=== PATIENT | female | born 1975 | race Caucasian/White ===

== ENCOUNTER → 2018-03-16 17:48 | Outpatient (CLI) | payer OTHER, SELFPAY ==
[2018-03-16 18:21] LABS: Bilirubin Urine UA NEGATIVE (NEGATIVE); Color Urine UA YELLOW; Glucose Urine UA NEGATIVE (Normal); Ketones Urine UA NEGATIVE (NEGATIVE); Leukocyte Esterase Urine UA TRACE (NEGATIVE); Nitrite Urine UA POSITIVE (Negative); Occult Blood Urine UA 1+ (Negative); Protein Urine UA NEGATIVE (Negative); Specific Gravity Urine UA >=1.030 (1.000-1.035); Urobilinogen Urine UA 0.2 E.U./dL (0.2)
[2018-03-16 18:32] LABS: Appearance Urine UA Slightly Cloudy
[2018-03-16 18:34] LABS: Bacteria Urine Many (>30); Culture Indicated Urine Specimen Cultured; RBC Urine 1-5/HPF (0-5/HPF); Squamous Epithelial Cell Urine 1-5 /HPF; WBC Urine 1-5/HPF (0-5/HPF)
== END ==
PROVIDERS: Family Provider Nurse Practitioner; PCP Family Medicine; Visit Provider Family Medicine
DX: R30.0 Dysuria (principal); R35.0 Frequency of micturition; R39.15 Urgency of urination
CPT/HCPCS: 81001; 87077; 87086; 87186

== ENCOUNTER → 2018-05-13 10:07 | Outpatient (CLI) | payer OTHER, SELFPAY ==
[2018-05-13 10:37] LABS: Add Manual Diff / Slide Review NO; Basophils Percent Auto 0.4 % (0-2); Eosinophils Percent Auto 2.2 % (2-4); Hematocrit 39.5 % (36-46); Hemoglobin 13.9 g/dL (12.0-16.0); Mean Corpuscular HGB Conc 35.1 % (30-36); Mean Corpuscular Hemoglobin 30.2 PG (26-34); Mean Corpuscular Volume 86.1 fL (80-100); Monocytes Percent Auto 8.3 % (3-14); Neutrophils Absolute Auto 4300 /uL (3000-5900); Neutrophils Percent Auto 65.1 % (50-75); Platelet Count 318 X10^3/uL (150-400); Red Blood Cell Count 4.59 X10^6/uL (4.0-5.2); Red Cell Distribution Width 12.7 % (11.6-14.8); White Blood Cell Count 6.7 X10^3/uL (4.5-11.0)
[2018-05-13 10:48] LABS: Alanine Aminotransferase 37 IU/L (9-52); Albumin 4.5 g/dL (3.5-5.0); Albumin Globulin Ratio 1.3 (1.0-2.8); Alkaline Phosphatase 69 U/L (38-126); Aspartate Aminotransferase 29 IU/L (14-36); BUN Creatinine Ratio 18.3 (6-22); Bilirubin Total 0.5 mg/dL (0.2-1.3); Blood Urea Nitrogen 11 mg/dL (7-17); Calcium 9.3 mg/dL (8.4-10.2); Carbon Dioxide 29 mmol/L (22-32); Chloride 103 mmol/L (98-107); Estimated Glomerular Filt Rate > 60.0 mL/min (>60); Globulin 3.5 g/dL (1.7-4.1); Glucose 82 mg/dL (70-100); HEMOLYSIS < 15 (0-50); Potassium 4.2 mmol/L (3.4-5.1); Sodium 143 mmol/L (137-145)
[2018-05-13 11:05] LABS: Vitamin D 25 Hydroxy (D3) 38.2 ng/mL (30.0-100.0)
[2018-05-13 11:18] LABS: TSH w/ Reflex to FT4 1.02 uIU/mL (0.47-4.68)
== END ==
PROVIDERS: PCP Family Medicine; Visit Provider Family Medicine
DX: R53.83 Other fatigue (principal); E55.9 Vitamin D deficiency, unspecified
CPT/HCPCS: 36415; 80053; 82306; 84443; 85025

== ENCOUNTER 2019-03-21 22:35 | Emergency (ER) | payer OTHER, SELFPAY ==
--- NOTE | 2019-03-21 22:39 | DI.RAD.S_ITS ---
PROCEDURE: XR CHEST 1V INDICATIONS: Chest pain TECHNIQUE: One view of the chest was acquired. COMPARISON: None. FINDINGS: Surgical changes and devices: None. Lungs and pleura: Lungs are clear. No pleural effusions or pneumothorax. Mediastinum: Mediastinal contours appear normal. Heart size is normal. Bones and chest wall: No suspicious bony lesions. Overlying soft tissues appear unremarkable. IMPRESSION: No acute cardiopulmonary disease process. Dictated by: Jennie Alvarez MD, PhD on 03/22/2019 at 8:14 Approved by: Jennie Alvarez MD, PhD on 03/22/2019 at 8:15
--- NOTE | 2019-03-21 22:39 | ED_ITS ---
HPI - Chest Pain General Chief Complaint: Chest Pain Stated Complaint: sudden chest pain Time Seen by Provider: 03/21/19 22:38 Source: patient Mode of arrival: ambulatory Limitations: no limitations History of Present Illness HPI narrative: 43-year-old female here for evaluation of upper abdomen pain and back pain. Patient states that was a fairly sudden onset approximately 1 hour prior to arrival here in the emergency department. She states that she was bent over or rolling out her yoga mat when the symptoms started. Stated the symptoms have improved somewhat since then. Pain is worse with palpation and movement and taking a deep breath. Has never had any symptoms like this in the past. No vomiting. Related Data Home Medications Medication Instructions Recorded Confirmed multivitamin chewable tablet 1 tab PO DAILY 02/27/18 02/16/19 levonorgestrel 20 mcg/24 hours (5 INTRAUTERINE each 05/13/18 02/16/19 yrs) 52 mg intrauterine device Previous Rx's Medication Instructions Recorded cyclobenzaprine 10 mg tablet See Rx Instructions PO HS PRN #60 12/23/18 tab fluticasone furoate 100 100 mcg INHALATION QDAY #1 ea 12/23/18 mcg/actuation blister powder for inhalation nystatin 100,000 unit/gram topical 1 applictn TOP BID #30 gram 01/05/19 powder hydrocodone-acetaminophen [Gracey] 1 tab PO Q4-6H PRN #10 tab 03/22/19 ondansetron 4 mg PO Q6H PRN #10 tab 03/22/19 Allergies Allergy/AdvReac Type Severity Reaction Status Date / Time fluconazole [From DIFLUCAN] Allergy Mild Unverified 02/27/18 10:50 sulfamethoxazole AdvReac Intermediate Verified 05/15/18 12:59 [From Bactrim] trimethoprim [From Bactrim] AdvReac Intermediate Verified 05/15/18 12:59 VAGINAL YEAST MED. OTC & RX Allergy Intermediate VERIFIED Uncoded 02/27/18 10:50 Review of Systems Constitutional Denies fever(s) ENT Ears, Nose, Mouth, and Throat: Denies vertigo Cardiovascular Reports chest pain, Denies syncope, Denies rapid heart rate, Denies edema, Denies palpitations and Denies dyspnea Respiratory Denies cough and Denies dyspnea Gastrointestinal Gastrointestinal: Reports abdominal pain, Denies change in stool character, Denies nausea and Denies vomiting Genitourinary Denies dysuria Musculoskeletal Denies myalgias and Denies arthralgias Integumentary/Breasts Denies rash Neurologic Denies confusion, Denies vertigo and Denies syncope Psychiatric Denies confusion Endocrine Denies palpitations Hematologic/Lymphatic Denies easy bleeding and Denies easy bruising [facility] Medical History Anxiety (Chronic ~1997) Asthma (Chronic ~1979) Depression (Chronic) Fibromyalgia (Chronic) Tendonitis (Chronic ~2011) Social History marital status: 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) Smoking Status: Former smoker alcohol intake: current (occasionally) substance use type: does not use Exam Initial Vital Signs Initial Vital Signs: Vital Signs Temperature 97.9 F 03/21/19 22:44 Pulse Rate 98 H 03/21/19 22:44 Respiratory Rate 21 03/21/19 22:44 Blood Pressure 164/97 H 03/21/19 22:44 Pulse Oximetry 98 03/21/19 22:44 Const General: cooperative, well developed, well groomed and No acute distress Orientation: alert, awake and oriented x3 HENMT Head: normal to inspection and normocephalic Resp Effort & Inspection: normal respiratory effort Auscultation: clear to auscultation bilaterally Cardio Rate: regular rate Rhythm: regular rhythm Pulses: radial pulses present GI Inspection: non-distended Palpation: soft, No firm and tender (Epigastric right upper quadrant pain,) Back/Spine/Pelvis Back: No CVA tenderness Cervical Spine: No cervical spinal tenderness Thoracic/Lumbar Spine: No paraspinal tenderness, No thoracic spinal tenderness and No lumbar spinal tenderness Skin Lesions: no lesions Rashes: no rashes Neuro General: alert and awake Cognition: normal cognition Speech: speech normal Motor: muscle tone normal throughout Sensory Exam: no sensory deficits noted Extrem General: normal to inspection and capillary refill normal Psych Appearance: grossly normal and well kempt Scores GCS [place] coma scale eye opening: Spontaneous Catherine coma scale verbal response: Orientated Catherine coma scale motor response: Obey commands Catherine coma scale total score: 15 Course Orders Ordered: ED Orders 03/21/19 20:47 Complete Blood Count AUTO DIFF Stat Comprehensive Metabolic Panel Stat Lipase Stat 03/21/19 22:39 XR chest 1V Stat EKG-12 Lead Stat 03/21/19 22:56 US abdomen limited Stat 03/22/19 00:39 Troponin I Stat Discontinued Medications Hydrocodone Bitart/Acetaminophen (Vicodin Prepack) 1 bottle MISC SEEINSTR ONE Stop: 03/22/19 01:23 Last Admin: 03/22/19 01:44 Dose: 1 bottle Hydromorphone HCl (Dilaudid) 1 mg IV NOW ONE Stop: 03/22/19 00:15 Last Admin: 03/22/19 00:49 Dose: 1 mg Sodium Chloride (Normal Saline 0.9%) 1,000 mls @ 125 mls/hr IV CONT AB Last Admin: 03/21/19 23:07 Dose: 125 mls/hr Ondansetron HCl (Zofran Odt Prepack) 1 bottle MISC SEEINSTR ONE Stop: 03/22/19 01:23 Last Admin: 03/22/19 01:44 Dose: 1 bottle Ondansetron HCl (Zofran) 4 mg IV NOW ONE Stop: 03/22/19 01:29 Last Admin: 03/22/19 01:44 Dose: 4 mg Pantoprazole Sodium (Protonix) 40 mg IV NOW ONE Stop: 03/22/19 00:15 Last Admin: 03/22/19 00:49 Dose: 40 mg Vital Signs - 8 hr 03/21/19 22:44 03/22/19 00:05 03/22/19 00:55 Temperature 97.9 F Pulse Rate 98 H 90 115 H Respiratory Rate 21 16 20 Blood Pressure 164/97 H Blood Pressure [Left Arm] 153/87 H 153/95 H Pulse Oximetry 98 98 100 03/22/19 01:24 Temperature Pulse Rate 96 H Respiratory Rate 12 Blood Pressure Blood Pressure [Left Arm] 130/81 Pulse Oximetry 95 MDM - Chest Pain Lab Data Attestation: I reviewed the patient's lab results. Result diagrams: 03/21/19 20:47 03/21/19 20:47 Lab Results 03/21/19 03/21/19 03/22/19 Range/Units 20:47 20:47 00:39 WBC 10.3 (4.5-11.0) X10^3/uL RBC 4.68 (4.0-5.2) X10^6/uL Hgb 14.0 (12.0-16.0) g/dL Hct 40.5 (36-46) % MCV 86.6 (80-100) fL MCH 29.9 (26-34) PG MCHC 34.5 (30-36) % RDW 12.9 (11.6-14.8) % Plt Count 287 (150-400) X10^3/uL Neut % (Auto) 60.9 (50-75) % Lymph % (Auto) 27.1 (25-40) % Arroyo % (Auto) 9.2 (3-14) % Eos % (Auto) 2.0 (2-4) % Baso % (Auto) 0.8 (0-2) % Neut # (Auto) 6300 (1100-2967) /uL Lymph # (Auto) 2800 (4426-5458) /uL Arroyo # (Auto) 900 (0-900) /uL Eos # (Auto) 200 (0-450) /uL Baso # (Auto) 100 (0-100) /uL Sodium 141 (137-145) mmol/L Potassium 3.5 (3.4-5.1) mmol/L Chloride 104 (98-107) mmol/L Carbon Dioxide 26 (22-32) mmol/L BUN 16 (7-17) mg/dL Creatinine 0.70 (0.52-1.04) mg/dL Estimated GFR > 60.0 (>60) mL/min BUN/Creatinine Ratio 22.9 H (6-22) Glucose 97 (70-100) mg/dL Calcium 9.7 (8.4-10.2) mg/dL Total Bilirubin 0.4 (0.2-1.3) mg/dL AST 52 H (14-36) IU/L ALT 33 (9-52) IU/L Alkaline Phosphatase 91 (38-126) U/L Troponin I < 0.012 (0.01-0.034) ng/mL Total Protein 8.1 (6.3-8.2) g/dL Albumin 4.5 (3.5-5.0) g/dL Globulin 3.6 (1.7-4.1) g/dL Albumin/Globulin Ratio 1.3 (1.0-2.8) Lipase 92 (23-300) U/L Imaging Data Chest x-ray: Attestation: I personally reviewed and interpreted this imaging study as follows: My impression: No focal consolidation Normal size heart No wide mediastinum US - abdomen: Radiologist's impression: Read by real radiology Multifocal cholelithiasis with positive sonographic Baptiste sign Normal common bile duct at 3 mm No pericholecystic fluid or gallbladder wall thickening. ECG Data Attestation: I personally reviewed and interpreted this ECG as follows: Prior ECG tracings: not available for review Interpretation: Sinus rhythm Normal axis Normal QRS Normal QTC No ST T wave changes MDM Narrative Medical decision making narrative: Patient's symptoms seemed to be epigastric and right upper quadrant. Low suspicion for ACS. Low suspicion for pulmonary embolism. Low suspicion for aortic dissection. Right upper quadrant ultrasound does show cholelithiasis without signs of cholecystitis. I do suspect that this is the cause of her symptoms. Reported vast improvement of her symptoms after the pain medication. She did have some vomiting prior to discharge however this was controlled with Zofran. She was given return precautions and follow-up instructions. She is contact her primary doctor to discuss further workup and any potential surgical referral. She expressed understanding and agreement with plan. Discharge Plan Departure Patient Disposition: Home Clinical Impression: Abdominal pain Qualifiers: Abdominal location: upper abdomen, unspecified Qualified Code(s): R10.10 - Upper abdominal pain, unspecified Cholelithiasis Qualifiers: Cholelithiasis location: gallbladder Cholecystitis presence: without cholecystitis Biliary obstruction: without biliary obstruction Qualified Code(s): K80.20 - Calculus of gallbladder without cholecystitis without obstruction Discharge Date/Time: 03/22/19 02:10 Interventions: ED Discharge Assessment Last Done: 03/22/19 02:33 Instructions: Gallstones (Alternative Therapy), Acute Abdominal Pain, DI for Gallstones Activity Restrictions/Additional Instructions: On Friday please contact your primary provider for a follow-up. Take the medications as directed. Return to the emergency department for any new or worsening symptoms Prescriptions: New hydrocodone-acetaminophen [Gracey] 5-325 mg tablet 1 tab PO Q4-6H PRN (Reason: pain) Qty: 10 RF: 0 ondansetron 4 mg tablet,disintegrating 4 mg PO Q6H PRN (Reason: nausea and vomiting) Qty: 10 RF: 0 No Action Arnuity Ellipta 100 mcg/actuation blister with device 100 mcg INHALATION QDAY Qty: 1 RF: 5 cyclobenzaprine 10 mg tablet See Rx Instructions PO HS PRN (Reason: muscle spasm) Qty: 60 RF: 5 levonorgestrel [Mirena] 20 mcg/24 hr (5 years) intrauterine device Intrauterine RF: 0 multivitamin tablet,chewable 1 tab PO DAILY RF: 0 nystatin 100,000 unit/gram powder 1 applictn TOP BID Qty: 30 RF: 3 Referrals: Precious Collazo DO [Primary Care Provider] -
[2019-03-21 22:44] VITALS: BP 164/97; PULSE 98; RESP 21; TEMP 36.6; O2SAT 98
--- NOTE | 2019-03-21 22:56 | DI.US.S_ITS ---
PROCEDURE: US ABDOMEN LIMITED INDICATIONS: RUQ PAIN, EVAL FOR GB PATHOLOGY TECHNIQUE: Real-time focused scanning was performed of the abdomen, with image documentation. COMPARISON: None. FINDINGS: Liver is normal in size with homogeneous echotexture. Multiple gallstones identified. No gallbladder wall thickening. Gallbladder wall measures 2.1 mm. No pericholecystic fluid. Sonographic Baptiste's sign reported. The biliary tree is nondilated. Common bile duct measures 3.3 mm. The head and body the pancreas are sonographically normal. Tail of pancreas is obscured by bowel gas and cannot be evaluated. IMPRESSION: Cholelithiasis without sonographic evidence of cholecystitis. If there is continued clinical concern for cholecystitis, nuclear medicine HIDA scan should be considered for further evaluation. Dictated by: Jennie Alvarez MD, PhD on 03/22/2019 at 7:54 Approved by: Jennie Alvarez MD, PhD on 03/22/2019 at 8:02
[2019-03-21] MEDS: SODIUM CHLORIDE 0.9% 1,000 ML 125 ML IV (23:07)
[2019-03-21 23:10] LABS: Add Manual Diff / Slide Review NO; Basophils Absolute Auto 100 /uL (0-100); Basophils Percent Auto 0.8 % (0-2); Eosinophils Absolute Auto 200 /uL (0-450); Hematocrit 40.5 % (36-46); Lymphocytes Absolute Auto 2800 /uL (1100-4500); Lymphocytes Percent Auto 27.1 % (25-40); Mean Corpuscular HGB Conc 34.5 % (30-36); Mean Corpuscular Hemoglobin 29.9 PG (26-34); Mean Corpuscular Volume 86.6 fL (80-100); Monocytes Absolute Auto 900 /uL (0-900); Monocytes Percent Auto 9.2 % (3-14); Neutrophils Absolute Auto 6300 /uL (1500-7000); Neutrophils Percent Auto 60.9 % (50-75); Platelet Count 287 X10^3/uL (150-400); Red Blood Cell Count 4.68 X10^6/uL (4.0-5.2); Red Cell Distribution Width 12.9 % (11.6-14.8); White Blood Cell Count 10.3 X10^3/uL (4.5-11.0)
[2019-03-21 23:12] LABS: Alanine Aminotransferase 33 IU/L (9-52); Albumin 4.5 g/dL (3.5-5.0); Albumin Globulin Ratio 1.3 (1.0-2.8); Alkaline Phosphatase 91 U/L (38-126); Aspartate Aminotransferase 52 IU/L (14-36); BUN Creatinine Ratio 22.9 (6-22); Bilirubin Total 0.4 mg/dL (0.2-1.3); Blood Urea Nitrogen 16 mg/dL (7-17); Calcium 9.7 mg/dL (8.4-10.2); Carbon Dioxide 26 mmol/L (22-32); Chloride 104 mmol/L (98-107); Estimated Glomerular Filt Rate > 60.0 mL/min (>60); Globulin 3.6 g/dL (1.7-4.1); Glucose 97 mg/dL (70-100); HEMOLYSIS < 15 (0-50); Lipase 92 U/L (23-300); Potassium 3.5 mmol/L (3.4-5.1); Sodium 141 mmol/L (137-145); Total Protein 8.1 g/dL (6.3-8.2)
[2019-03-22 00:05] VITALS: BP 153/87; PULSE 90; RESP 16; O2SAT 98
[2019-03-22] MEDS: PANTOPRAZOLE 40 MG VIAL IV (00:49)
[2019-03-22] MEDS: HYDROMORPHONE 1 MG INJ IV (00:49)
[2019-03-22 00:55] VITALS: BP 153/95; PULSE 115; RESP 20; O2SAT 100
[2019-03-22 01:11] LABS: Troponin I < 0.012 ng/mL (0.01-0.034)
[2019-03-22 01:24] VITALS: BP 130/81; PULSE 96; RESP 12; O2SAT 95
[2019-03-22] MEDS: ONDANSETRON 4 MG ODT PREPACK 1 BOTTLE MISC (01:44)
[2019-03-22] MEDS: HYDROCODONE/ACET 5/325 PREPACK 1 BOTTLE MISC (01:44)
[2019-03-22] MEDS: ONDANSETRON 4 MG/2 ML INJ IV (01:44)
== END 2019-03-22 02:10 | disposition home or self-care (01) ==
PROVIDERS: Emergency Provider Emergency Medicine; PCP Family Medicine
DX: R10.10 Upper abdominal pain, unspecified (principal); K80.20 Calculus of gallbladder without cholecystitis without obstruction
CPT/HCPCS: 36415; 36591; 71045; 76705; 80053; 83690; 84484; 85025; 93005; 96361; 96374; 96375; 99283; 99285; C9113; J1170; J2405

== ENCOUNTER 2019-07-28 08:46 | Day surgery (SDC) | payer OTHER, SELFPAY ==
[2019-07-27 08:57] VITALS: BMI 27.4
[2019-07-28] VITALS (13 sets, daily range): BP systolic 85–134; BP diastolic 50–96; PULSE 75–98; RESP 13–18; TEMP 35.8–36.9; O2SAT 96–100; BMI 27.3
--- NOTE | 2019-07-28 | PATH_ITS ---
[facility] Accession Number: [id number] . 01 Material submitted: . gallbladder - GALLBLADDER AND CONTENTS . 01 Clinical history: . LAP POSS OPEN LARISSA . 02 Diagnosis: Gallbladder and Contents, Cholecystectomy: Cholelithiasis with mild chronic cholecystitis. No evidence of neoplasm. MRV 07/30/2019 1511 Local . 02 Electronically signed: . Ganesh Clements MD, PhD, Pathologist NPI- [id number] . 01 Gross description: . Received in formalin, labeled gallbladder and contents, is an intact gallbladder (length-8.0 cm, diameter-4.0 cm) with green smooth shiny serosa and a patent cystic duct. No lymph nodes are identified. The lumen contains dark green watery bile and multiple bright yellow friable calculi (6.2 x 2.5 x 0.8 cm in aggregate). The mucosa is green, smooth and flat. The wall is up to 0.1 cm thick. No nodules, masses or lesions are identified. Section code: (A1) cystic duct resection margin and two serial sections from the body; (A2) two longitudinal sections from the fundus. ([id number]) /MRV 07/29/2019 1516 Local . 02 Pathologist provided ICD-10: K80.60 . 02 CPT . 500601 Performed at: 01 [facility] [address] [place] [address], [place], [place] [id number] MD Buzz Brush MD Phone: [phone] Performed at: 02 [facility] [address] [place], [place] [id number] MD Sherry Wood MD Phone: [phone]
[2019-07-28] MEDS: LACTATED RINGERS 1,000 ML 100 ML IV ×2 (09:38→12:31)
--- NOTE | 2019-07-28 09:44 | PM.PREOP ---
Pre-operative Note Interval Note History & Physical reviewed/Exam performed by Physician: Yes Changes to H&P: No
[2019-07-28] MEDS: PIPERACILLIN-TAZO 3.375 GM/50 ML FROZ.PIGGY IV (10:00)
--- NOTE | 2019-07-28 10:32 | SUR.OPER ---
Supine on padded OR bed, head on pillow, arms secured on padded arm boards at <90 degrees abduction, legs uncrossed, safety belt at thigh, tape over blanket over lower legs.
[2019-07-28] MEDS: BUPIVACAINE 0.25% W/ EPI (PF) 10 ML VIAL 20 ML INJ (10:45)
--- NOTE | 2019-07-28 12:08 | PM.OP.1 ---
Operative Date/Time/Diagnoses Date of procedure: 07/28/19 Time of procedure: 12:08 Pre-op diagnosis: symptomatic cholelithiasis Post-op diagnosis: same Procedure & Clinicians Procedure: Laparoscopic cholecystectomy with intraoperative fluoroscopic cholangiogram using ICG Same procedure as scheduled: Yes Indications: This is a 43-year-old woman with symptomatic cholelithiasis Surgeon: Delmis Uribe Click Yes if Unassisted: Yes Anesthesia Type: General Operative Notes Findings: hypervascular scarred in gall bladder with multiple small accessory veins coming from the liver Good critical view of safety after dissection of scarred triangle of calot Specimen(s): other (Gallbladder) Estimated Blood Loss (mL): 5 Blood products transfused: none Procedure in detail: The patient was brought into the operating room and placed supine on the OR table. Sequential compression devices were placed on both legs and turned on. Appropriate perioperative antibiotics were given prior to the start of surgery. General anesthesia was induced the patient was intubated. The abdomen was prepped and draped in sterile fashion. Surgical time-out was conducted. Local anesthetic was injected under the skin just superior to the umbilicus and a 5 mm vertical incision was made at this site. The umbilical stalk was grasped with a Ankush and elevated. A Veress needle was passed through the fascia into proper position. The position was tested with a saline drop test which was appropriate for intra-abdominal Veress needle placement. The abdomen was then insufflated in the usual fashion. Once insufflated to 15 mm Hg the Veress needle was removed and a 5 mm optical trocar was placed under direct vision using a 5 mm 30 degree scope. Once the camera was inside the abdomen I took a look around. There was no injury from port placement. Two additional ports were placed in a similar fashion in the right upper quadrant and a 10 mm port was placed in the epigastrium. Through the 2 lateral ports the gallbladder was grasped and elevated and the infundibulum was retracted laterally to the patient's right. This exposed the gallbladder hilum and allowed for dissection of the cystic duct and cystic artery. There was quite a bit of dense scar tissue throughout the gallbladder hilum and the triangle of calot. This required tedious careful dissection to avoid injury to the bile ducts. There was a large pulsating right hepatic artery lying over top of the common bile duct in an unusual position. This structure was observed and avoided throughout the procedure. Using ICG we are able to take fluoroscopic images of the bile ducts, confirming the position of the cystic duct and common bile duct, in order to avoid injury to the common bile duct. The cystic artery was anterior and was dissected free in order to uncover the cystic duct. The cystic artery had to be clipped and divided prior to taking the duct so that the duct could be completely dissected free in the structures confirmed before taking the duct. Once the artery was dissected out it was doubly clipped on the patient's side and singly clipped on the gallbladder side. It was divided with Metzenbaum scissors. There was also posterior branch of the artery seen. Once the cystic duct was completely dissected out and I was able to see liver behind and between both structures without any other structures in the way, this gave us the critical view of safety. I again confirmed this view with ICG prior to clipping the cystic duct. At this point I doubly clipped both the cystic duct and the posterior branch of the cystic artery, on the patient's side and put a single clip on the gallbladder side of both the cystic duct and artery. Both structures were then divided with laparoscopic Fredrick. Following this the gallbladder was gradually dissected free from the liver. There was quite a bit of hypervascularity of the scar tissue between the gallbladder and the liver. Several small vessels had to be controlled with cautery. Once the gallbladder was entirely freed, it was placed inside an Endo-Catch bag and removed through the epigastric port site. I did not have to enlarge the epigastric site in order to get the gallbladder out. Once it was out and passed off to the back table I then took another look inside the abdomen. I suctioned clean any remaining blood or fluid on the lateral side of the liver and in the subhepatic space. I also suctioned some serosanguineous fluid from the pelvis. There was some active bleeding from the gallbladder fossa. This was controlled with clip and Surgicel. I placed a Ray-Power inside and held pressure on top of the area of bleeding for about 5 minutes. I then removed the Ray-Power from the abdomen and took 1 last look. I changed out the Surgicel for a fresh new Surgicel, and no further bleeding was seen. There was no sign of any leaking of bile from the gallbladder fossa or from the clipped stumps of the cystic duct. At this point the epigastric port site was closed with a Ronnie Herrera using an 0 Vicryl suture. Insufflation was removed from the abdomen and the epigastric port site was closed with 0 Vicryl suture in the fascia, 3 O Vicryl in the subcutaneous layers, and 4 Monocryl in the skin. The remaining port sites were closed with 4 Monocryl in the skin. Each port site was sealed with Dermabond. Local anesthetic was given at each of the port sites and in the fascia. This concluded the procedure. At this point the needle sponge and instrument counts were correct. The gallbladder was passed off the table for pathology. Patient was awakened from anesthesia and extubated. She was transferred to the postanesthesia care unit in stable condition. Complications: none Post-operative Condition: stable Disposition: PACU
[2019-07-28] MEDS: ONDANSETRON 4 MG/2 ML INJ IV (12:19)
--- NOTE | 2019-07-28 12:27 | SUR.PHASEI ---
Patient arrived to PACU phase 1. Sedated but easily arousable by voice. Awoke feeling hot, flushed face and palms of hands. Respirations regular and unlabored. Abdominal incisions CDI. VSS. 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 Medicated for nausea without emesis. Continue to monitor per plan of care.
[2019-07-28] MEDS: METOCLOPRAMIDE 10 MG/2 ML INJ IV (12:40)
--- NOTE | 2019-07-28 13:09 | SUR.PHASEI ---
Intervention eval note: Patient fell asleep after receiving antiemetic. 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 titrated to room air.
[2019-07-28] MEDS: HYDROCODONE/ACET 5/325 TABLET 1 TAB PO (13:22)
--- NOTE | 2019-07-28 13:42 | SUR.PHASEI ---
PACU transfer note: patient VSS and O2 sat WNL on room air. Nausea resolved after receiving antiemetic. Able to tolerate po crackers, applesauces and water without nausea. Medicated with oral pain pill. Stable for transfer to [facility]. Handoff report given to Alina YUNG.
== END 2019-07-28 15:15 | disposition home or self-care (01) ==
PROVIDERS: PCP Family Medicine; Visit Provider Surgery
PROC: 0FT44ZZ Resection of Gallbladder, Percutaneous Endoscopic Approach (ICD-10-PCS; CPT 47562; principal; 2019-07-28 10:15)
DX: K80.10 Calculus of gallbladder with chronic cholecystitis without obstruction (principal); J45.909 Unspecified asthma, uncomplicated; M79.7 Fibromyalgia; F32.9 Major depressive disorder, single episode, unspecified; F41.9 Anxiety disorder, unspecified
CPT/HCPCS: 47563; J0360; J1100; J2250; J2405; J2543; J2704; J2765; J3010

== ENCOUNTER → 2020-05-12 11:24 | Outpatient (CLI) | payer OTHER, SELFPAY ==
--- NOTE | 2020-05-12 11:37 | DI.RAD.S_ITS ---
PROCEDURE: XR FOOT LT MIN 3V INDICATIONS: foot pain L > R TECHNIQUE: 3 views of the foot were acquired. COMPARISON: None. FINDINGS: Bones: No fractures or dislocations. No suspicious bony lesions. Soft tissues: No tibiotalar joint effusion. Achilles tendon appears normal. IMPRESSION: Source of pain is not found. Note is made of an accessory ossicle lateral to the proximal cuboid bone. Also noted is a small Achilles tendon insertion spur at the posterior calcaneus and a scant spur at the plantar fascia insertion site also Dictated by: Daniel Lucio M.D. on 05/12/2020 at 13:07 Approved by: Daniel Lucio M.D. on 05/12/2020 at 13:07
[2020-05-12 12:38] LABS: Add Manual Diff / Slide Review NO; Basophils Absolute Auto 0 /uL (0-100); Basophils Percent Auto 0.5 % (0-2); Eosinophils Absolute Auto 100 /uL (0-450); Eosinophils Percent Auto 1.6 % (2-4); Hematocrit 39.9 % (36-46); Hemoglobin 13.6 g/dL (12.0-16.0); Lymphocytes Absolute Auto 1100 /uL (1100-4500); Lymphocytes Percent Auto 23.3 % (25-40); Mean Corpuscular HGB Conc 34.1 % (30-36); Monocytes Absolute Auto 400 /uL (0-900); Monocytes Percent Auto 7.8 % (3-14); Neutrophils Absolute Auto 3100 /uL (1500-7000); Neutrophils Percent Auto 66.8 % (50-75); Platelet Count 255 X10^3/uL (150-400); Red Blood Cell Count 4.53 X10^6/uL (4.0-5.2); Red Cell Distribution Width 12.7 % (11.6-14.8); White Blood Cell Count 4.7 X10^3/uL (4.5-11.0)
[2020-05-12 12:47] LABS: Alanine Aminotransferase 15 IU/L (<35); Albumin 4.3 g/dL (3.5-5.0); Albumin Globulin Ratio 1.3 (1.0-2.8); Alkaline Phosphatase 75 U/L (38-126); Aspartate Aminotransferase 25 IU/L (14-36); BUN Creatinine Ratio 18.5 (6-22); Bilirubin Total 0.4 mg/dL (0.2-1.3); Blood Urea Nitrogen 12 mg/dL (7-17); Calcium 8.8 mg/dL (8.4-10.2); Carbon Dioxide 29 mmol/L (22-32); Chloride 105 mmol/L (98-107); Estimated Glomerular Filt Rate > 60.0 mL/min (>60); Globulin 3.4 g/dL (1.7-4.1); Glucose 98 mg/dL (70-100); HEMOLYSIS < 15 (0-50); Potassium 4.1 mmol/L (3.4-5.1); Sodium 140 mmol/L (137-145); Total Protein 7.7 g/dL (6.3-8.2)
[2020-05-13 04:57] LABS: RPR Screen Non Reactive (Non Reactive)
[2020-05-13 12:28] LABS: HSV 2 IGG AB < 0.91 index (0.00-0.90); HSV1IGG 0.92 index (0.00-0.90)
[2020-05-13 15:14] LABS: CMV DNA, Quant Real Time PCR Negative (Negative)
[2020-05-15 16:41] LABS: HIV 1 & 2 Ab/Ag 4th Gen Combo NEGATIVE (NEGATIVE)
[2020-05-17 05:38] LABS: Epstein Barr Virus by PCR Negative (Negative)
== END ==
PROVIDERS: PCP Family Medicine; Visit Provider Nurse Practitioner Family
DX: N76.5 Ulceration of vagina (principal); N76.6 Ulceration of vulva
CPT/HCPCS: 36415; 73630; 80053; 85025; 86592; 86617; 86695; 86696; 87070; 87077; 87205; 87210; 87252; 87389; 87497; 87798

== ENCOUNTER 2020-09-27 10:30 | Outpatient (RCR) | payer OTHER, SELFPAY ==
--- NOTE | 2020-06-26 15:41 | PT.OIE ---
Current Diagnoses Pain in right foot (06/26/20) Pain in left foot (06/26/20) Past Medical History (Last Updated 05/12/20 @ 11:36 by ELISA Carolina) Anxiety (Chronic ~1997) Asthma (Chronic ~1979) Biliary colic (Acute) Depression (Chronic) Fibromyalgia (Chronic) Gallstones (Acute) Genital labial ulcer (Acute) Left foot pain (Acute) Mild intermittent asthma (Chronic) Tendonitis (Chronic ~2011) Weight loss, intentional (Acute) Past Surgical History (Last Updated 08/10/19 @ 09:14 by Delmis Uribe MD) History of cholecystectomy (Acute) History of third molar tooth extraction Visit Care Team Role Provider Type Precious Collazo DO Family Provider Physician Primary Care Provider Specialty: [facility] Address: [address] [place] [address] Email: [email or web address] ELISA Carolina Attending Provider Advanced Restaurant Kitchen Manager Referring Provider Specialty: [facility] Address: [address] [place] [address], [facility] Email: [email or web address] Physical Therapy Initial Evaluation PT-OP-A Visit Information Start: 06/26/20 09:32 Freq: Status: Active Protocol: Document 06/26/20 10:32 MB (Rec: 06/26/20 10:53 MB [id number]) Out-Patient Physical Therapy Visit Information Visit Information Visit Type Initial Evaluation Visit Note Dillon Visit Start Time 10:32 Visit Stop Time 11:15 Total Visit Minutes 43 Visit Number 1 Evaluation Information Evaluation Date 06/26/20 PT-OP-B Current Condition Start: 06/26/20 09:32 Freq: Status: Active Protocol: Document 06/26/20 10:32 MB (Rec: 06/26/20 10:53 MB [id number]) Current Condition History of Current Condition Onset Date March 2020 Current Complaints B foot pain, worse on the left with WB activity History of Current Condition At the end of March, pt was spending a lot of time remodeling a house and had increased B foot pain and greater on the left. She points to dorsal left foot at the cuboid area. Her right foot pain is better. Pt reports 3/10 right foot pain and 6/10 left foot pain. She is afraid to exercise d/t pain. 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 She is wearing arch support and that does relieve some of the pain. Pt states that she has a history of tendinits and calcifications form B shoulders and hips. She was dx with OA LB. She has had chronic inflammation and one MRI showed right trochanter bursa inflammation. Pt reports that she had a fall two weeks ago. She was overconfident using a hover board. She reached forward on her couch and the board moved out from behind her. She hit the back of her head. Her right shoulder flared up. She stretched, iced and rested and then was symptom-free. She has had a headache for the last couple of days. Pt reports that over the last few months, she has not been very hungry and she has been losing weight. It almost feels like symptoms but she knows she is not d/t IUD. She is nauseated. She has had increased stress. Pt works at [employer] and manages a lot with her job. She is working from home and is helping her two teenagers at home with school. The remodel of the house is still ongoing. Pt reports history of inflammatory response. Prior Treatments and Tests PT in the past for multi-joint pain, pt reports sensitivity to touch. X-ray left foot 05/12/2020: accessory ossicle lateral to proximal cuboid bone, small achilles tendon insertion spur at posterior calcaneus and scant spur at the plantar fascia Treatment Goals Patient/Caregiver Goals To get back to walking 3-4 miles a day. PT-OP-C Subjective Start: 06/26/20 09:32 Freq: Status: Active Protocol: Document 06/26/20 10:32 MB (Rec: 06/26/20 10:53 MB [id number]) OP-PT Subjective Patient Comments Patient Comments See history of current condition Patient Questionnaires Lower Extremity Functional Scale LEFS Score Not accurate PT-OP-G Mobility & Gait Start: 06/26/20 09:32 Freq: Status: Active Protocol: Document 06/26/20 10:32 MB (Rec: 06/26/20 13:00 MB [id number]) OP Gait Assessment Gait Gait Assistance Required: Independent Distance (Feet) 100 Assistive Devices Assistive Device None Gait Deviations General Gait Pattern Within Normal Limits Factors Limiting Gait Function Factors Limiting Gait Function Pain Comments Gait Comments Pt tends to put more weight through B first ray and great toe for stepping, as if reaching through her toes. This is greater on the right. She has decreased Astrid angle B PT-OP-J Posture/Palpation/Skin Start: 06/26/20 09:32 Freq: Status: Active Protocol: Document 06/26/20 10:32 MB (Rec: 06/26/20 13:00 MB [id number]) Posture Evaluation Comments Posture Comments Standing posture: forward head , rounded shoulders, Dowager's hump, increased lumbar lordosis and anterior tilt pelvis, right shoulder elevation and right scapula elevation and protraction, right iliac crest higher than the left and pt does have spinal curvature. Decreased astrid angle B, increased knee extension, B thigh approximation, increased cheese cook through B great toes, rearfoot and midfoot positions change as pt shifts stance, she tends to stand with the left foot back compared to the right when asked to stand with feet even. Skin Assessment Other Assessments Skin Assessment Comments Left ankle is mildly more edematous than the right in the dorsal part of the joint and foot, though she has sock loyola on both feet and ankles. PT-OP-K Range of Motion Start: 06/26/20 09:32 Freq: Status: Active Protocol: Document 06/26/20 10:32 MB (Rec: 06/26/20 13:00 MB [id number]) Ankle and Foot Goniometric Range of Motion Ankle and Foot ROM Limitations Comments B great toe extension reduced to only a few degrees off neutral. B DF close to neutral . Both great toe extension and DF slightly more limited on the right PT-OP-M Strength Start: 06/26/20 09:32 Freq: Status: Active Protocol: Document 06/26/20 10:32 MB (Rec: 06/26/20 13:00 MB [id number]) Hip Strength Hip Manual Muscle Testing Left Flexion (L2) 5 Normal Abduction 5 Normal Comments Pt supine Right Flexion (L2) 5 Normal Abduction 4 Good Comments Pt supine Knee Strength Knee Manual Muscle Testing Left Flexion (S2) 5 Normal Extension (L3) 5 Normal Comments Pt supine Right Flexion (S2) 5 Normal Extension (L3) 5 Normal Comments Pt supine Ankle/Foot Strength Ankle and Foot Manual Muscle Testing Left Dorsiflexion (L4) 5 Normal Inversion 5 Normal Eversion (S1) 5 Normal Comments Standing PF: pt can perform at least 20 reps with UE support against wall Right Dorsiflexion (L4) 5 Normal Inversion 5 Normal Eversion (S1) 5 Normal Comments Standing PF: pt can perform at least 20 reps with UE support against wall Toe Strength Toe Manual Muscle Testing Left Great Toe Extension 4 Good Right Great Toe Extension 3 Fair PT-OP-Q Treatments Start: 06/26/20 09:32 Freq: Status: Active Protocol: Document 06/26/20 10:32 MB (Rec: 06/26/20 13:00 MB [id number]) Self-Care/Home Management Treatment Education Other Education Discussion with pt about her inflammation concerns and reports, provided information for pt to follow-up with functional medicine pharmacist , encouragement to pt about PT , PT plan to review her current exercises that she is doing at home that seem to help her, ed pt to return to yoga in two days and perform to tolerance and stop if increased left foot pain PT-OP-T Assessment and Plan Start: 06/26/20 09:32 Freq: Status: Active Protocol: Document 06/26/20 10:32 MB (Rec: 06/26/20 13:00 [id number]) Physical Therapy Assessment Rehab Potential Rehabilitation Potential Good Evaluation Complexity Number of Personal Factors/Comorbidities 1-2 Number of Body Systems Impaired 1-2 Clinical Presentation at Evaluation Evolving Impairments Impairments Activity Tolerance,Balance, Pain,Posture,ROM,Soft Tissue Mobility,Strength Goals 4 Fdc Goal (LTG) Pt will perform progressive HEP with I including flexibility, balance and strengthening exercises to decrease pain and improve functional strength by 2019. LTG Duration 8 weeks 3 Fdc Goal (LTG) Pt will present WNLs on a standardized balance test to improve balance and walking by 08/24/2020. LTG Duration 8 weeks 2 Fdc Goal (LTG) Pt will gait train at least 1500 feet in 6 minutes with reports of no more than 2/10 left foot pain to prepare pt to return to walking several miles a day by 08/24/2020. LTG Duration 8 weeks 1 Information Technology Manager Goal (LTG) Pt will be able to walk 1 mile with reports of no more than 2/10 left foot pain to allow return to prior active lifestyle by 08/24/2020. LTG Duration 8 weeks Assessment Summary Assessment Pt is a 44 y/o female presenting with left greater than right foot pain that is improving. She reports that the pain started in March when she and her were spending a lot of time remodeling their rental home to prepare to put on the market. She usually likes to walk 3-4 miles a day and do yoga but she has not been doing so d/t the pain. She has a least one more month of house remodel. Pt presents with LE weakness, decreased right and left ankle DF and great toe extension, mild LE edema (greater on the left) and positive left foot x-ray and visual changes around the cuboid. She will benefit from PT for progressive flexibility , strengthening, balance and HEP creation. She may benefit from manual work to improve fascial changes. Barriers include history of multi-joint pain and changes and reports of inflammatory problem. Pt is very self-aware and proactive about her overall help. Physical Therapy Plan Frequency and Duration Frequency of Treatment 2x/Week Duration of Treatment 8 weeks Plan of Care Start Date 06/26/20 Plan of Care End Date 08/24/20 Therapeutic Interventions Therapeutic Interventions Balance Training,Canalithic Repositioning,Coordination Training,Gait Training,Home Exercise Program,Joint Mobilizations,Manual Therapy, Neuromuscular Re-education, Patient/Caregiver Education, Self-Care/Home Management, Sensory Integration,Soft Tissue Mobilization,Taping, Therapeutic Activities, Therapeutic Exercises Modalities Cold Pack/Ice Massage,Electric Stimulation,Hot Packs, Ultrasound Other Referrals/Consults Referrals/Consults Recommended Functional medicine pharmacist to discuss inflammatory concerns Next Visit Focus/Plan Next Note Type Treatment Note Next Visit Plan Review her current exercises
--- NOTE | 2020-06-26 15:42 | PT.OPPOC ---
Physical, Occupational & Speech Therapy At [facility] Current Diagnoses Pain in right foot (06/26/20) Pain in left foot (06/26/20) Visit Care Team Role Provider Type Precious Collazo DO Family Provider Physician Primary Care Provider Specialty: Family Practice Address: [address] [place] [address], [place], [address] Email: [email or web address] ELISA Carolina Attending Provider Advanced Wool And Pelt Grader Referring Provider Specialty: [facility] Practice Address: [address] [place] [address], [id number] Email: [email or web address] Plan Of Care PT-OP-T Assessment and Plan Start: 06/26/20 09:32 Freq: Status: Active Protocol: Document 06/26/20 10:32 MB (Rec: 06/26/20 13:00 MB [id number]) Physical Therapy Assessment Rehab Potential Rehabilitation Potential Good Evaluation Complexity Number of Personal Factors/Comorbidities 1-2 Number of Body Systems Impaired 1-2 Clinical Presentation at Evaluation Evolving Impairments Impairments Activity Tolerance,Balance, Pain,Posture,ROM,Soft Tissue Mobility,Strength Goals 4 Precision Farming Coordinator Goal (LTG) Pt will perform progressive HEP with I including flexibility, balance and strengthening exercises to decrease pain and improve functional strength by 2019. LTG Duration 8 weeks 3 Precision Farming Coordinator Goal (LTG) Pt will present WNLs on a standardized balance test to improve balance and walking by 08/24/2020. LTG Duration 8 weeks 2 Precision Farming Coordinator Goal (LTG) Pt will gait train at least 1500 feet in 6 minutes with reports of no more than 2/10 left foot pain to prepare pt to return to walking several miles a day by 08/24/2020. LTG Duration 8 weeks 1 Half-Way Goal (LTG) Pt will be able to walk 1 mile with reports of no more than 2/10 left foot pain to allow return to prior active lifestyle by 08/24/2020. LTG Duration 8 weeks Assessment Summary Assessment Pt is a 44 y/o female presenting with left greater than right foot pain that is improving. She reports that the pain started in March when she and her were spending a lot of time remodeling their rental home to prepare to put on the market. She usually likes to walk 3-4 miles a day and do yoga but she has not been doing so d/t the pain. She has a least one more month of house remodel. Pt presents with LE weakness, decreased right and left ankle DF and great toe extension, mild LE edema (greater on the left) and positive left foot x-ray and visual changes around the cuboid. She will benefit from PT for progressive flexibility , strengthening, balance and HEP creation. She may benefit from manual work to improve fascial changes. Barriers include history of multi-joint pain and changes and reports of inflammatory problem. Pt is very self-aware and proactive about her overall help. Physical Therapy Plan Frequency and Duration Frequency of Treatment 2x/Week Duration of Treatment 8 weeks Plan of Care Start Date 06/26/20 Plan of Care End Date 08/24/20 Therapeutic Interventions Therapeutic Interventions Balance Training,Canalithic Repositioning,Coordination Training,Gait Training,Home Exercise Program,Joint Mobilizations,Manual Therapy, Neuromuscular Re-education, Patient/Caregiver Education, Self-Care/Home Management, Sensory Integration,Soft Tissue Mobilization,Taping, Therapeutic Activities, Therapeutic Exercises Modalities Cold Pack/Ice Massage,Electric Stimulation,Hot Packs, Ultrasound Other Referrals/Consults Referrals/Consults Recommended Functional medicine pharmacist to discuss inflammatory concerns Next Visit Focus/Plan Next Note Type Treatment Note Next Visit Plan Review her current exercises Plan of Care Dates Plan of Care Start Date 06/26/20 Plan of Care End Date 08/24/20 Electronically Signed by: Anette Mcdowell PT 06/26/20 1312 Please Sign and Return: I have reviewed this Plan of Care and certify that the skilled therapy services above are required to meet the patient?s needs. Physician Signature Date Printed Name and Credentials Clinical Instructor Signature Printed Name and Credentials
--- NOTE | 2020-06-30 13:22 | PT.OTN ---
Current Diagnoses Pain in right foot (06/30/20) Pain in left foot (06/30/20) Physical Therapy Treatment Note PT-OP-A Visit Information Start: 06/26/20 09:32 Freq: Status: Active Protocol: Document 06/30/20 12:18 MB (Rec: 06/30/20 13:22 MB [id number]) Out-Patient Physical Therapy Visit Information Visit Information Visit Type Treatment Note Visit Start Time 12:18 Visit Stop Time 13:12 Total Visit Minutes 54 Visit Number 2 PT-OP-B Current Condition Start: 06/26/20 09:32 Freq: Status: Active Protocol: Document 06/26/20 10:32 MB (Rec: 06/26/20 10:53 MB [id number]) Current Condition History of Current Condition Onset Date March 2020 Current Complaints B foot pain, worse on the left with WB activity History of Current Condition At the end of March, pt was spending a lot of time remodeling a house and had increased B foot pain and greater on the left. She points to dorsal left foot at the cuboid area. Her right foot pain is better. Pt reports 3/10 right foot pain and 6/10 left foot pain. She is afraid to exercise d/t pain. 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 She is wearing arch support and that does relieve some of the pain. Pt states that she has a history of tendinits and calcifications form B shoulders and hips. She was dx with OA LB. She has had chronic inflammation and one MRI showed right trochanter bursa inflammation. Pt reports that she had a fall two weeks ago. She was overconfident using a hover board. She reached forward on her couch and the board moved out from behind her. She hit the back of her head. Her right shoulder flared up. She stretched, iced and rested and then was symptom-free. She has had a headache for the last couple of days. Pt reports that over the last few months, she has not been very hungry and she has been losing weight. It almost feels like symptoms but she knows she is not d/t IUD. She is nauseated. She has had increased stress. Pt works at [employer] and manages a lot with her job. She is working from home and is helping her two teenagers at home with school. The remodel of the house is still ongoing. Pt reports history of inflammatory response. Prior Treatments and Tests PT in the past for multi-joint pain, pt reports sensitivity to touch. X-ray left foot 05/12/2020: accessory ossicle lateral to proximal cuboid bone, small achilles tendon insertion spur at posterior calcaneus and scant spur at the plantar fascia Treatment Goals Patient/Caregiver Goals To get back to walking 3-4 miles a day. PT-OP-C Subjective Start: 06/26/20 09:32 Freq: Status: Active Protocol: Document 06/30/20 12:18 MB (Rec: 06/30/20 13:22 MB [id number]) OP-PT Subjective Patient Comments Patient Comments I tried my yoga routine last night and I do it barefoot and with my arch braces on. PT-OP-G Mobility & Gait Start: 06/26/20 09:32 Freq: Status: Active Protocol: Document 06/26/20 10:32 MB (Rec: 06/26/20 13:00 MB [id number]) OP Gait Assessment Gait Gait Assistance Required: Independent Distance (Feet) 100 Assistive Devices Assistive Device None Gait Deviations General Gait Pattern Within Normal Limits Factors Limiting Gait Function Factors Limiting Gait Function Pain Comments Gait Comments Pt tends to put more weight through B first ray and great toe for stepping, as if reaching through her toes. This is greater on the right. She has decreased Astrid angle B PT-OP-J Posture/Palpation/Skin Start: 06/26/20 09:32 Freq: Status: Active Protocol: Document 06/26/20 10:32 MB (Rec: 06/26/20 13:00 MB [id number]) Posture Evaluation Comments Posture Comments Standing posture: forward head , rounded shoulders, Dowager's hump, increased lumbar lordosis and anterior tilt pelvis, right shoulder elevation and right scapula elevation and protraction, right iliac crest higher than the left and pt does have spinal curvature. Decreased astrid angle B, increased knee extension, B thigh approximation, increased fundraiser through B great toes, rearfoot and midfoot positions change as pt shifts stance, she tends to stand with the left foot back compared to the right when asked to stand with feet even. Skin Assessment Other Assessments Skin Assessment Comments Left ankle is mildly more edematous than the right in the dorsal part of the joint and foot, though she has sock loyola on both feet and ankles. PT-OP-K Range of Motion Start: 06/26/20 09:32 Freq: Status: Active Protocol: Document 06/26/20 10:32 MB (Rec: 06/26/20 13:00 MB [id number]) Ankle and Foot Goniometric Range of Motion Ankle and Foot ROM Limitations Comments B great toe extension reduced to only a few degrees off neutral. B DF close to neutral . Both great toe extension and DF slightly more limited on the right PT-OP-M Strength Start: 06/26/20 09:32 Freq: Status: Active Protocol: Document 06/26/20 10:32 MB (Rec: 06/26/20 13:00 MB [id number]) Hip Strength Hip Manual Muscle Testing Left Flexion (L2) 5 Normal Abduction 5 Normal Comments Pt supine Right Flexion (L2) 5 Normal Abduction 4 Good Comments Pt supine Knee Strength Knee Manual Muscle Testing Left Flexion (S2) 5 Normal Extension (L3) 5 Normal Comments Pt supine Right Flexion (S2) 5 Normal Extension (L3) 5 Normal Comments Pt supine Ankle/Foot Strength Ankle and Foot Manual Muscle Testing Left Dorsiflexion (L4) 5 Normal Inversion 5 Normal Eversion (S1) 5 Normal Comments Standing PF: pt can perform at least 20 reps with UE support against wall Right Dorsiflexion (L4) 5 Normal Inversion 5 Normal Eversion (S1) 5 Normal Comments Standing PF: pt can perform at least 20 reps with UE support against wall Toe Strength Toe Manual Muscle Testing Left Great Toe Extension 4 Good Right Great Toe Extension 3 Fair PT-OP-Q Treatments Start: 06/26/20 09:32 Freq: Status: Active Protocol: Document 06/30/20 12:18 MB (Rec: 06/30/20 13:22 MB [id number]) Therapeutic Exercises Other Exercises Glo hammock Side left Equipment Used Level 2 band and also given level 3 band Reps/Minutes 3 reps Golfer's lift for balance and glute and core strength Side bilateral Equipment Used Foam roller Comments Pt to perform this rather than warrior 3 that she demonstrates, provided noel Yoga exercises that pt uses on keren Comments See assessment comments, too many to put in here PT-OP-T Assessment and Plan Start: 06/26/20 09:32 Freq: Status: Active Protocol: Document 06/30/20 12:18 MB (Rec: 06/30/20 13:22 MB [id number]) Physical Therapy Assessment Rehab Potential Rehabilitation Potential Good Evaluation Complexity Number of Personal Factors/Comorbidities 1-2 Number of Body Systems Impaired 1-2 Clinical Presentation at Evaluation Evolving Impairments Impairments Activity Tolerance,Balance, Pain,Posture,ROM,Soft Tissue Mobility,Strength Goals 4 Longterm Goal (LTG) Pt will perform progressive HEP with I including flexibility, balance and strengthening exercises to decrease pain and improve functional strength by 2019. LTG Duration 8 weeks 3 Veterans Employment Representative Goal (LTG) Pt will present WNLs on a standardized balance test to improve balance and walking by 08/24/2020. LTG Duration 8 weeks 2 Longterm Goal (LTG) Pt will gait train at least 1500 feet in 6 minutes with reports of no more than 2/10 left foot pain to prepare pt to return to walking several miles a day by 08/24/2020. LTG Duration 8 weeks 1 Longterm Goal (LTG) Pt will be able to walk 1 mile with reports of no more than 2/10 left foot pain to allow return to prior active lifestyle by 08/24/2020. LTG Duration 8 weeks Assessment Summary Assessment Yoga exercises from pt's keren: child's pose, plank, downward dog (PT modifies to put 1/2 6 foam roller under heels to help with tension in calves and feet, standing forward bend, chair pose, standing half forward bend and seal, chair twist (cues for pt not to look down at keren), tree pose (pt has confusion with this and so cued to perform with one leg up), bridge pose (ed on form to lift hips further), balancing table ( [employer]), single leg downward dog with 1/2 foam roll under foot, warrior poses and pt demonstrates warrior 1 with back foot forward and weight on toes and arms overhead, warrior 2 with arm in front and arm behind and pt looking over forward fingers, PT provides handout for golfer's lift as modification exercises for a warrior 3 pose, bow pose, supine bound ankle ( reclined cobbler) and sitting cobbler pose. Pt also performs lunges with arms out to side, rainbow in quadriped with leg straight and coming out and back. Added ankle exercise today. Pt reports a little bit of burning lateral left foot after exercises. Ed pt to ice as needed. Physical Therapy Plan Frequency and Duration Frequency of Treatment 2x/Week Duration of Treatment 8 weeks Plan of Care Start Date 06/26/20 Plan of Care End Date 08/24/20 Therapeutic Interventions Therapeutic Interventions Balance Training,Canalithic Repositioning,Coordination Training,Gait Training,Home Exercise Program,Joint Mobilizations,Manual Therapy, Neuromuscular Re-education, Patient/Caregiver Education, Self-Care/Home Management, Sensory Integration,Soft Tissue Mobilization,Taping, Therapeutic Activities, Therapeutic Exercises Modalities Cold Pack/Ice Massage,Electric Stimulation,Hot Packs, Ultrasound Other Referrals/Consults Referrals/Consults Recommended Functional medicine pharmacist to discuss inflammatory concerns Next Visit Focus/Plan Next Note Type Treatment Note Next Visit Plan Answer exercise questions, progress as appropriate, consider educating on benefits of [place] sock
--- NOTE | 2020-07-03 11:21 | PT.OTN ---
Current Diagnoses Pain in right foot (07/03/20) Pain in left foot (07/03/20) Physical Therapy Treatment Note PT-OP-A Visit Information Start: 06/26/20 09:32 Freq: Status: Active Protocol: Document 07/03/20 10:32 MB (Rec: 07/03/20 11:20 MB [id number]) Out-Patient Physical Therapy Visit Information Visit Information Visit Type Treatment Note Visit Start Time 10:32 Visit Stop Time 11:15 Total Visit Minutes 43 Visit Number 3 PT-OP-B Current Condition Start: 06/26/20 09:32 Freq: Status: Active Protocol: Document 06/26/20 10:32 MB (Rec: 06/26/20 10:53 MB [id number]) Current Condition History of Current Condition Onset Date March 2020 Current Complaints B foot pain, worse on the left with WB activity History of Current Condition At the end of March, pt was spending a lot of time remodeling a house and had increased B foot pain and greater on the left. She points to dorsal left foot at the cuboid area. Her right foot pain is better. Pt reports 3/10 right foot pain and 6/10 left foot pain. She is afraid to exercise d/t pain. 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 She is wearing arch support and that does relieve some of the pain. Pt states that she has a history of tendinits and calcifications form B shoulders and hips. She was dx with OA LB. She has had chronic inflammation and one MRI showed right trochanter bursa inflammation. Pt reports that she had a fall two weeks ago. She was overconfident using a hover board. She reached forward on her couch and the board moved out from behind her. She hit the back of her head. Her right shoulder flared up. She stretched, iced and rested and then was symptom-free. She has had a headache for the last couple of days. Pt reports that over the last few months, she has not been very hungry and she has been losing weight. It almost feels like symptoms but she knows she is not d/t IUD. She is nauseated. She has had increased stress. Pt works at [employer] and manages a lot with her job. She is working from home and is helping her two teenagers at home with school. The remodel of the house is still ongoing. Pt reports history of inflammatory response. Prior Treatments and Tests PT in the past for multi-joint pain, pt reports sensitivity to touch. X-ray left foot 05/12/2020: accessory ossicle lateral to proximal cuboid bone, small achilles tendon insertion spur at posterior calcaneus and scant spur at the plantar fascia Treatment Goals Patient/Caregiver Goals To get back to walking 3-4 miles a day. PT-OP-C Subjective Start: 06/26/20 09:32 Freq: Status: Active Protocol: Document 07/03/20 10:32 MB (Rec: 07/03/20 11:20 MB [id number]) OP-PT Subjective Patient Comments Patient Comments I felt fine after PT but by the time I was done working on Friday, I was feeling it. I rested all day yesterday. PT-OP-G Mobility & Gait Start: 06/26/20 09:32 Freq: Status: Active Protocol: Document 06/26/20 10:32 MB (Rec: 06/26/20 13:00 MB [id number]) OP Gait Assessment Gait Gait Assistance Required: Independent Distance (Feet) 100 Assistive Devices Assistive Device None Gait Deviations General Gait Pattern Within Normal Limits Factors Limiting Gait Function Factors Limiting Gait Function Pain Comments Gait Comments Pt tends to put more weight through B first ray and great toe for stepping, as if reaching through her toes. This is greater on the right. She has decreased Astrid angle B PT-OP-J Posture/Palpation/Skin Start: 06/26/20 09:32 Freq: Status: Active Protocol: Document 06/26/20 10:32 MB (Rec: 06/26/20 13:00 MB [id number]) Posture Evaluation Comments Posture Comments Standing posture: forward head , rounded shoulders, Dowager's hump, increased lumbar lordosis and anterior tilt pelvis, right shoulder elevation and right scapula elevation and protraction, right iliac crest higher than the left and pt does have spinal curvature. Decreased astrid angle B, increased knee extension, B thigh approximation, increased sliver former through B great toes, rearfoot and midfoot positions change as pt shifts stance, she tends to stand with the left foot back compared to the right when asked to stand with feet even. Skin Assessment Other Assessments Skin Assessment Comments Left ankle is mildly more edematous than the right in the dorsal part of the joint and foot, though she has sock loyola on both feet and ankles. PT-OP-K Range of Motion Start: 06/26/20 09:32 Freq: Status: Active Protocol: Document 06/26/20 10:32 MB (Rec: 06/26/20 13:00 MB [id number]) Ankle and Foot Goniometric Range of Motion Ankle and Foot ROM Limitations Comments B great toe extension reduced to only a few degrees off neutral. B DF close to neutral . Both great toe extension and DF slightly more limited on the right PT-OP-M Strength Start: 06/26/20 09:32 Freq: Status: Active Protocol: Document 06/26/20 10:32 MB (Rec: 06/26/20 13:00 MB [id number]) Hip Strength Hip Manual Muscle Testing Left Flexion (L2) 5 Normal Abduction 5 Normal Comments Pt supine Right Flexion (L2) 5 Normal Abduction 4 Good Comments Pt supine Knee Strength Knee Manual Muscle Testing Left Flexion (S2) 5 Normal Extension (L3) 5 Normal Comments Pt supine Right Flexion (S2) 5 Normal Extension (L3) 5 Normal Comments Pt supine Ankle/Foot Strength Ankle and Foot Manual Muscle Testing Left Dorsiflexion (L4) 5 Normal Inversion 5 Normal Eversion (S1) 5 Normal Comments Standing PF: pt can perform at least 20 reps with UE support against wall Right Dorsiflexion (L4) 5 Normal Inversion 5 Normal Eversion (S1) 5 Normal Comments Standing PF: pt can perform at least 20 reps with UE support against wall Toe Strength Toe Manual Muscle Testing Left Great Toe Extension 4 Good Right Great Toe Extension 3 Fair PT-OP-Q Treatments Start: 06/26/20 09:32 Freq: Status: Active Protocol: Document 07/03/20 10:32 MB (Rec: 07/03/20 11:20 MB [id number]) Manual Therapy Treatment Other Other Manual Treatments B gentle phalange, metatarsal and tarsal mobs, gentle ankle mobs and ankle mobs. STM B gastrocsoleus complex Self-Care/Home Management Treatment Education Other Education Extensive education, photo and handout about anatomy, use of and benefits and drawbacks of [place] sock and PT and pt discuss recommendation and pt to consider PT-OP-T Assessment and Plan Start: 06/26/20 09:32 Freq: Status: Active Protocol: Document 07/03/20 10:32 MB (Rec: 07/03/20 11:20 MB [id number]) Physical Therapy Assessment Rehab Potential Rehabilitation Potential Good Evaluation Complexity Number of Personal Factors/Comorbidities 1-2 Number of Body Systems Impaired 1-2 Clinical Presentation at Evaluation Evolving Impairments Impairments Activity Tolerance,Balance, Pain,Posture,ROM,Soft Tissue Mobility,Strength Goals 4 Service Observer Goal (LTG) Pt will perform progressive HEP with I including flexibility, balance and strengthening exercises to decrease pain and improve functional strength by 2019. LTG Duration 8 weeks 3 Service Observer Goal (LTG) Pt will present WNLs on a standardized balance test to improve balance and walking by 08/24/2020. LTG Duration 8 weeks 2 Longterm Goal (LTG) Pt will gait train at least 1500 feet in 6 minutes with reports of no more than 2/10 left foot pain to prepare pt to return to walking several miles a day by 08/24/2020. LTG Duration 8 weeks 1 Service Observer Goal (LTG) Pt will be able to walk 1 mile with reports of no more than 2/10 left foot pain to allow return to prior active lifestyle by 08/24/2020. LTG Duration 8 weeks Assessment Summary Assessment Pt presents with increased tension left lateral distal gastroc and ankle and she presents with supinated left ankle. Con't mons and manual work and pt to consider [place] sock. Physical Therapy Plan Frequency and Duration Frequency of Treatment 2x/Week Duration of Treatment 8 weeks Plan of Care Start Date 06/26/20 Plan of Care End Date 08/24/20 Therapeutic Interventions Therapeutic Interventions Balance Training,Canalithic Repositioning,Coordination Training,Gait Training,Home Exercise Program,Joint Mobilizations,Manual Therapy, Neuromuscular Re-education, Patient/Caregiver Education, Self-Care/Home Management, Sensory Integration,Soft Tissue Mobilization,Taping, Therapeutic Activities, Therapeutic Exercises Modalities Cold Pack/Ice Massage,Electric Stimulation,Hot Packs, Ultrasound Other Referrals/Consults Referrals/Consults Recommended Functional medicine pharmacist to discuss inflammatory concerns Next Visit Focus/Plan Next Note Type Treatment Note Next Visit Plan Answer exercise questions, progress as appropriate, consider educating on benefits of [place] sock
--- NOTE | 2020-07-06 11:21 | PT.OTN ---
Current Diagnoses Pain in right foot (07/06/20) Pain in left foot (07/06/20) Physical Therapy Treatment Note PT-OP-A Visit Information Start: 06/26/20 09:32 Freq: Status: Active Protocol: Document 07/06/20 10:32 MB (Rec: 07/06/20 11:20 MB [id number]) Out-Patient Physical Therapy Visit Information Visit Information Visit Type Treatment Note Visit Start Time 10:32 Visit Stop Time 11:15 Total Visit Minutes 43 Visit Number 4 PT-OP-B Current Condition Start: 06/26/20 09:32 Freq: Status: Active Protocol: Document 06/26/20 10:32 MB (Rec: 06/26/20 10:53 MB [id number]) Current Condition History of Current Condition Onset Date March 2020 Current Complaints B foot pain, worse on the left with WB activity History of Current Condition At the end of March, pt was spending a lot of time remodeling a house and had increased B foot pain and greater on the left. She points to dorsal left foot at the cuboid area. Her right foot pain is better. Pt reports 3/10 right foot pain and 6/10 left foot pain. She is afraid to exercise d/t pain. 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 She is wearing arch support and that does relieve some of the pain. Pt states that she has a history of tendinits and calcifications form B shoulders and hips. She was dx with OA LB. She has had chronic inflammation and one MRI showed right trochanter bursa inflammation. Pt reports that she had a fall two weeks ago. She was overconfident using a hover board. She reached forward on her couch and the board moved out from behind her. She hit the back of her head. Her right shoulder flared up. She stretched, iced and rested and then was symptom-free. She has had a headache for the last couple of days. Pt reports that over the last few months, she has not been very hungry and she has been losing weight. It almost feels like symptoms but she knows she is not d/t IUD. She is nauseated. She has had increased stress. Pt works at [employer] and manages a lot with her job. She is working from home and is helping her two teenagers at home with school. The remodel of the house is still ongoing. Pt reports history of inflammatory response. Prior Treatments and Tests PT in the past for multi-joint pain, pt reports sensitivity to touch. X-ray left foot 05/12/2020: accessory ossicle lateral to proximal cuboid bone, small achilles tendon insertion spur at posterior calcaneus and scant spur at the plantar fascia Treatment Goals Patient/Caregiver Goals To get back to walking 3-4 miles a day. PT-OP-C Subjective Start: 06/26/20 09:32 Freq: Status: Active Protocol: Document 07/06/20 10:32 MB (Rec: 07/06/20 11:20 MB [id number]) OP-PT Subjective Patient Comments Patient Comments Both calves were a little more sensitive to touch after PT treatment manual treatment. Pt performed yoga on Friday and had no trouble. She had burning pain on the outside of her left foot after working in the house (her own house) all day yesterday from -5. She scraped the wax off the floor and rewaxed it. She wore her boots with foot braces. PT-OP-G Mobility & Gait Start: 06/26/20 09:32 Freq: Status: Active Protocol: Document 06/26/20 10:32 MB (Rec: 06/26/20 13:00 MB [id number]) OP Gait Assessment Gait Gait Assistance Required: Independent Distance (Feet) 100 Assistive Devices Assistive Device None Gait Deviations General Gait Pattern Within Normal Limits Factors Limiting Gait Function Factors Limiting Gait Function Pain Comments Gait Comments Pt tends to put more weight through B first ray and great toe for stepping, as if reaching through her toes. This is greater on the right. She has decreased Astrid angle B PT-OP-J Posture/Palpation/Skin Start: 06/26/20 09:32 Freq: Status: Active Protocol: Document 06/26/20 10:32 MB (Rec: 06/26/20 13:00 MB [id number]) Posture Evaluation Comments Posture Comments Standing posture: forward head , rounded shoulders, Dowager's hump, increased lumbar lordosis and anterior tilt pelvis, right shoulder elevation and right scapula elevation and protraction, right iliac crest higher than the left and pt does have spinal curvature. Decreased astrid angle B, increased knee extension, B thigh approximation, increased dial mounter through B great toes, rearfoot and midfoot positions change as pt shifts stance, she tends to stand with the left foot back compared to the right when asked to stand with feet even. Skin Assessment Other Assessments Skin Assessment Comments Left ankle is mildly more edematous than the right in the dorsal part of the joint and foot, though she has sock loyola on both feet and ankles. PT-OP-K Range of Motion Start: 06/26/20 09:32 Freq: Status: Active Protocol: Document 06/26/20 10:32 MB (Rec: 06/26/20 13:00 MB [id number]) Ankle and Foot Goniometric Range of Motion Ankle and Foot ROM Limitations Comments B great toe extension reduced to only a few degrees off neutral. B DF close to neutral . Both great toe extension and DF slightly more limited on the right PT-OP-M Strength Start: 06/26/20 09:32 Freq: Status: Active Protocol: Document 06/26/20 10:32 MB (Rec: 06/26/20 13:00 MB [id number]) Hip Strength Hip Manual Muscle Testing Left Flexion (L2) 5 Normal Abduction 5 Normal Comments Pt supine Right Flexion (L2) 5 Normal Abduction 4 Good Comments Pt supine Knee Strength Knee Manual Muscle Testing Left Flexion (S2) 5 Normal Extension (L3) 5 Normal Comments Pt supine Right Flexion (S2) 5 Normal Extension (L3) 5 Normal Comments Pt supine Ankle/Foot Strength Ankle and Foot Manual Muscle Testing Left Dorsiflexion (L4) 5 Normal Inversion 5 Normal Eversion (S1) 5 Normal Comments Standing PF: pt can perform at least 20 reps with UE support against wall Right Dorsiflexion (L4) 5 Normal Inversion 5 Normal Eversion (S1) 5 Normal Comments Standing PF: pt can perform at least 20 reps with UE support against wall Toe Strength Toe Manual Muscle Testing Left Great Toe Extension 4 Good Right Great Toe Extension 3 Fair PT-OP-Q Treatments Start: 06/26/20 09:32 Freq: Status: Active Protocol: Document 07/06/20 10:32 MB (Rec: 07/06/20 11:20 MB [id number]) Therapeutic Exercises Supine Exercises Maurice stretch Side bilateral Reps/Minutes 1 rep, 30 sec Comments Abdominal drawing in first Abdominal drawing in Comments Ed in hook lying, 5 reps Hamstring, calf AP and hip abd/add stretches with martial art band Side bilateral Equipment Used Martial art belt Reps/Minutes 1 rep all Comments 30 sec all, pt to work up to foot pumping d/t symptoms in feet Standing Exercises Gastroc and soleus stretches Side bilateral Reps/Minutes [id number] PT-OP-T Assessment and Plan Start: 06/26/20 09:32 Freq: Status: Active Protocol: Document 07/06/20 10:32 MB (Rec: 07/06/20 11:20 MB [id number]) Physical Therapy Assessment Rehab Potential Rehabilitation Potential Good Evaluation Complexity Number of Personal Factors/Comorbidities 1-2 Number of Body Systems Impaired 1-2 Clinical Presentation at Evaluation Evolving Impairments Impairments Activity Tolerance,Balance, Pain,Posture,ROM,Soft Tissue Mobility,Strength Goals 4 Retirement Goal (LTG) Pt will perform progressive HEP with I including flexibility, balance and strengthening exercises to decrease pain and improve functional strength by 2019. LTG Duration 8 weeks 3 Event Representative Goal (LTG) Pt will present WNLs on a standardized balance test to improve balance and walking by 08/24/2020. LTG Duration 8 weeks 2 Retirement Goal (LTG) Pt will gait train at least 1500 feet in 6 minutes with reports of no more than 2/10 left foot pain to prepare pt to return to walking several miles a day by 08/24/2020. LTG Duration 8 weeks 1 Event Representative Goal (LTG) Pt will be able to walk 1 mile with reports of no more than 2/10 left foot pain to allow return to prior active lifestyle by 08/24/2020. LTG Duration 8 weeks Assessment Summary Assessment Extensive time reviewing stretches today regarding form , needed to feel therapeutic stretch and not pain, foot wear. Physical Therapy Plan Frequency and Duration Frequency of Treatment 2x/Week Duration of Treatment 8 weeks Plan of Care Start Date 06/26/20 Plan of Care End Date 08/24/20 Therapeutic Interventions Therapeutic Interventions Balance Training,Canalithic Repositioning,Coordination Training,Gait Training,Home Exercise Program,Joint Mobilizations,Manual Therapy, Neuromuscular Re-education, Patient/Caregiver Education, Self-Care/Home Management, Sensory Integration,Soft Tissue Mobilization,Taping, Therapeutic Activities, Therapeutic Exercises Modalities Cold Pack/Ice Massage,Electric Stimulation,Hot Packs, Ultrasound Other Referrals/Consults Referrals/Consults Recommended Functional medicine pharmacist to discuss inflammatory concerns Next Visit Focus/Plan Next Note Type Treatment Note Next Visit Plan Progress exercises, strengthening in ankles, hips and knees and core, balance
--- NOTE | 2020-07-10 13:41 | PT.OTN ---
Current Diagnoses Pain in right foot (07/10/20) Pain in left foot (07/10/20) Physical Therapy Treatment Note PT-OP-A Visit Information Start: 06/26/20 09:32 Freq: Status: Active Protocol: Document 07/10/20 13:03 MB (Rec: 07/10/20 13:41 MB [id number]) Out-Patient Physical Therapy Visit Information Visit Information Visit Type Treatment Note Visit Start Time 13:03 Visit Stop Time 13:41 Total Visit Minutes 38 Visit Number 5 PT-OP-B Current Condition Start: 06/26/20 09:32 Freq: Status: Active Protocol: Document 06/26/20 10:32 MB (Rec: 06/26/20 10:53 MB [id number]) Current Condition History of Current Condition Onset Date March 2020 Current Complaints B foot pain, worse on the left with WB activity History of Current Condition At the end of March, pt was spending a lot of time remodeling a house and had increased B foot pain and greater on the left. She points to dorsal left foot at the cuboid area. Her right foot pain is better. Pt reports 3/10 right foot pain and 6/10 left foot pain. She is afraid to exercise d/t pain. 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 She is wearing arch support and that does relieve some of the pain. Pt states that she has a history of tendinits and calcifications form B shoulders and hips. She was dx with OA LB. She has had chronic inflammation and one MRI showed right trochanter bursa inflammation. Pt reports that she had a fall two weeks ago. She was overconfident using a hover board. She reached forward on her couch and the board moved out from behind her. She hit the back of her head. Her right shoulder flared up. She stretched, iced and rested and then was symptom-free. She has had a headache for the last couple of days. Pt reports that over the last few months, she has not been very hungry and she has been losing weight. It almost feels like symptoms but she knows she is not d/t IUD. She is nauseated. She has had increased stress. Pt works at [employer] and manages a lot with her job. She is working from home and is helping her two teenagers at home with school. The remodel of the house is still ongoing. Pt reports history of inflammatory response. Prior Treatments and Tests PT in the past for multi-joint pain, pt reports sensitivity to touch. X-ray left foot 05/12/2020: accessory ossicle lateral to proximal cuboid bone, small achilles tendon insertion spur at posterior calcaneus and scant spur at the plantar fascia Treatment Goals Patient/Caregiver Goals To get back to walking 3-4 miles a day. PT-OP-C Subjective Start: 06/26/20 09:32 Freq: Status: Active Protocol: Document 07/10/20 13:03 MB (Rec: 07/10/20 13:41 MB [id number]) OP-PT Subjective Patient Comments Patient Comments Pt states that they worked on the house over the weekend but I didn't do very hard jobs. My legs got sore from sitting. PT-OP-G Mobility & Gait Start: 06/26/20 09:32 Freq: Status: Active Protocol: Document 06/26/20 10:32 MB (Rec: 06/26/20 13:00 MB [id number]) OP Gait Assessment Gait Gait Assistance Required: Independent Distance (Feet) 100 Assistive Devices Assistive Device None Gait Deviations General Gait Pattern Within Normal Limits Factors Limiting Gait Function Factors Limiting Gait Function Pain Comments Gait Comments Pt tends to put more weight through B first ray and great toe for stepping, as if reaching through her toes. This is greater on the right. She has decreased Astrid angle B PT-OP-J Posture/Palpation/Skin Start: 06/26/20 09:32 Freq: Status: Active Protocol: Document 06/26/20 10:32 MB (Rec: 06/26/20 13:00 MB [id number]) Posture Evaluation Comments Posture Comments Standing posture: forward head , rounded shoulders, Dowager's hump, increased lumbar lordosis and anterior tilt pelvis, right shoulder elevation and right scapula elevation and protraction, right iliac crest higher than the left and pt does have spinal curvature. Decreased astrid angle B, increased knee extension, B thigh approximation, increased combat systems officer through B great toes, rearfoot and midfoot positions change as pt shifts stance, she tends to stand with the left foot back compared to the right when asked to stand with feet even. Skin Assessment Other Assessments Skin Assessment Comments Left ankle is mildly more edematous than the right in the dorsal part of the joint and foot, though she has sock loyola on both feet and ankles. PT-OP-K Range of Motion Start: 06/26/20 09:32 Freq: Status: Active Protocol: Document 06/26/20 10:32 MB (Rec: 06/26/20 13:00 MB [id number]) Ankle and Foot Goniometric Range of Motion Ankle and Foot ROM Limitations Comments B great toe extension reduced to only a few degrees off neutral. B DF close to neutral . Both great toe extension and DF slightly more limited on the right PT-OP-M Strength Start: 06/26/20 09:32 Freq: Status: Active Protocol: Document 06/26/20 10:32 MB (Rec: 06/26/20 13:00 MB [id number]) Hip Strength Hip Manual Muscle Testing Left Flexion (L2) 5 Normal Abduction 5 Normal Comments Pt supine Right Flexion (L2) 5 Normal Abduction 4 Good Comments Pt supine Knee Strength Knee Manual Muscle Testing Left Flexion (S2) 5 Normal Extension (L3) 5 Normal Comments Pt supine Right Flexion (S2) 5 Normal Extension (L3) 5 Normal Comments Pt supine Ankle/Foot Strength Ankle and Foot Manual Muscle Testing Left Dorsiflexion (L4) 5 Normal Inversion 5 Normal Eversion (S1) 5 Normal Comments Standing PF: pt can perform at least 20 reps with UE support against wall Right Dorsiflexion (L4) 5 Normal Inversion 5 Normal Eversion (S1) 5 Normal Comments Standing PF: pt can perform at least 20 reps with UE support against wall Toe Strength Toe Manual Muscle Testing Left Great Toe Extension 4 Good Right Great Toe Extension 3 Fair PT-OP-Q Treatments Start: 06/26/20 09:32 Freq: Status: Active Protocol: Document 07/10/20 13:03 MB (Rec: 07/10/20 13:41 MB [id number]) Therapeutic Exercises Supine Exercises Core progression with knees to side, knee fall out, HS and mini march Side bilateral Comments Cues and 10 reps all Maurice stretch Side bilateral Reps/Minutes 1 rep, 1' hold Comments Abdominal drawing in first Abdominal drawing in Comments Ed in hook lying, 5 reps PT-OP-T Assessment and Plan Start: 06/26/20 09:32 Freq: Status: Active Protocol: Document 07/10/20 13:03 MB (Rec: 07/10/20 13:41 BESSY [id number]) Physical Therapy Assessment Rehab Potential Rehabilitation Potential Good Evaluation Complexity Number of Personal Factors/Comorbidities 1-2 Number of Body Systems Impaired 1-2 Clinical Presentation at Evaluation Evolving Impairments Impairments Activity Tolerance,Balance, Pain,Posture,ROM,Soft Tissue Mobility,Strength Goals 4 Tender Coordinator Goal (LTG) Pt will perform progressive HEP with I including flexibility, balance and strengthening exercises to decrease pain and improve functional strength by 2019. LTG Duration 8 weeks 3 Tender Coordinator Goal (LTG) Pt will present WNLs on a standardized balance test to improve balance and walking by 08/24/2020. LTG Duration 8 weeks 2 Tender Coordinator Goal (LTG) Pt will gait train at least 1500 feet in 6 minutes with reports of no more than 2/10 left foot pain to prepare pt to return to walking several miles a day by 08/24/2020. LTG Duration 8 weeks 1 Tender Coordinator Goal (LTG) Pt will be able to walk 1 mile with reports of no more than 2/10 left foot pain to allow return to prior active lifestyle by 08/24/2020. LTG Duration 8 weeks Assessment Summary Assessment Extensive time today educating pt in core exercises and provided HEP exercises, reviewed Maurice salgado with this engagement. Physical Therapy Plan Frequency and Duration Frequency of Treatment 2x/Week Duration of Treatment 8 weeks Plan of Care Start Date 06/26/20 Plan of Care End Date 08/24/20 Therapeutic Interventions Therapeutic Interventions Balance Training,Canalithic Repositioning,Coordination Training,Gait Training,Home Exercise Program,Joint Mobilizations,Manual Therapy, Neuromuscular Re-education, Patient/Caregiver Education, Self-Care/Home Management, Sensory Integration,Soft Tissue Mobilization,Taping, Therapeutic Activities, Therapeutic Exercises Modalities Cold Pack/Ice Massage,Electric Stimulation,Hot Packs, Ultrasound Other Referrals/Consults Referrals/Consults Recommended Functional medicine pharmacist to discuss inflammatory concerns Next Visit Focus/Plan Next Note Type Treatment Note Next Visit Plan Progress exercises, strengthening in ankles, hips and knees, balance
--- NOTE | 2020-07-13 11:24 | PT.OTN ---
Current Diagnoses Pain in right foot (07/13/20) Pain in left foot (07/13/20) Physical Therapy Treatment Note PT-OP-A Visit Information Start: 06/26/20 09:32 Freq: Status: Active Protocol: Document 07/13/20 10:31 MB (Rec: 07/13/20 11:01 MB [id number]) Out-Patient Physical Therapy Visit Information Visit Information Visit Type Treatment Note Visit Start Time 10:31 Visit Stop Time 11:15 Total Visit Minutes 44 Visit Number 6 PT-OP-B Current Condition Start: 06/26/20 09:32 Freq: Status: Active Protocol: Document 06/26/20 10:32 MB (Rec: 06/26/20 10:53 MB [id number]) Current Condition History of Current Condition Onset Date March 2020 Current Complaints B foot pain, worse on the left with WB activity History of Current Condition At the end of March, pt was spending a lot of time remodeling a house and had increased B foot pain and greater on the left. She points to dorsal left foot at the cuboid area. Her right foot pain is better. Pt reports 3/10 right foot pain and 6/10 left foot pain. She is afraid to exercise d/t pain. 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 She is wearing arch support and that does relieve some of the pain. Pt states that she has a history of tendinits and calcifications form B shoulders and hips. She was dx with OA LB. She has had chronic inflammation and one MRI showed right trochanter bursa inflammation. Pt reports that she had a fall two weeks ago. She was overconfident using a hover board. She reached forward on her couch and the board moved out from behind her. She hit the back of her head. Her right shoulder flared up. She stretched, iced and rested and then was symptom-free. She has had a headache for the last couple of days. Pt reports that over the last few months, she has not been very hungry and she has been losing weight. It almost feels like symptoms but she knows she is not d/t IUD. She is nauseated. She has had increased stress. Pt works at [employer] and manages a lot with her job. She is working from home and is helping her two teenagers at home with school. The remodel of the house is still ongoing. Pt reports history of inflammatory response. Prior Treatments and Tests PT in the past for multi-joint pain, pt reports sensitivity to touch. X-ray left foot 05/12/2020: accessory ossicle lateral to proximal cuboid bone, small achilles tendon insertion spur at posterior calcaneus and scant spur at the plantar fascia Treatment Goals Patient/Caregiver Goals To get back to walking 3-4 miles a day. PT-OP-C Subjective Start: 06/26/20 09:32 Freq: Status: Active Protocol: Document 07/13/20 10:31 MB (Rec: 07/13/20 11:01 MB [id number]) OP-PT Subjective Patient Comments Patient Comments Pt got a [place] sock and wore it a couple of hours sitting and a couple of hours at night. She felt a stretch on the bottom of her foot and then got some burning on the outside. She only tried on the left foot. PT-OP-G Mobility & Gait Start: 06/26/20 09:32 Freq: Status: Active Protocol: Document 06/26/20 10:32 MB (Rec: 06/26/20 13:00 MB [id number]) OP Gait Assessment Gait Gait Assistance Required: Independent Distance (Feet) 100 Assistive Devices Assistive Device None Gait Deviations General Gait Pattern Within Normal Limits Factors Limiting Gait Function Factors Limiting Gait Function Pain Comments Gait Comments Pt tends to put more weight through B first ray and great toe for stepping, as if reaching through her toes. This is greater on the right. She has decreased Astrid angle B PT-OP-J Posture/Palpation/Skin Start: 06/26/20 09:32 Freq: Status: Active Protocol: Document 06/26/20 10:32 MB (Rec: 06/26/20 13:00 MB [id number]) Posture Evaluation Comments Posture Comments Standing posture: forward head , rounded shoulders, Dowager's hump, increased lumbar lordosis and anterior tilt pelvis, right shoulder elevation and right scapula elevation and protraction, right iliac crest higher than the left and pt does have spinal curvature. Decreased astrid angle B, increased knee extension, B thigh approximation, increased jamb cutter through B great toes, rearfoot and midfoot positions change as pt shifts stance, she tends to stand with the left foot back compared to the right when asked to stand with feet even. Skin Assessment Other Assessments Skin Assessment Comments Left ankle is mildly more edematous than the right in the dorsal part of the joint and foot, though she has sock loyola on both feet and ankles. PT-OP-K Range of Motion Start: 06/26/20 09:32 Freq: Status: Active Protocol: Document 06/26/20 10:32 MB (Rec: 06/26/20 13:00 MB [id number]) Ankle and Foot Goniometric Range of Motion Ankle and Foot ROM Limitations Comments B great toe extension reduced to only a few degrees off neutral. B DF close to neutral . Both great toe extension and DF slightly more limited on the right PT-OP-M Strength Start: 06/26/20 09:32 Freq: Status: Active Protocol: Document 06/26/20 10:32 MB (Rec: 06/26/20 13:00 MB [id number]) Hip Strength Hip Manual Muscle Testing Left Flexion (L2) 5 Normal Abduction 5 Normal Comments Pt supine Right Flexion (L2) 5 Normal Abduction 4 Good Comments Pt supine Knee Strength Knee Manual Muscle Testing Left Flexion (S2) 5 Normal Extension (L3) 5 Normal Comments Pt supine Right Flexion (S2) 5 Normal Extension (L3) 5 Normal Comments Pt supine Ankle/Foot Strength Ankle and Foot Manual Muscle Testing Left Dorsiflexion (L4) 5 Normal Inversion 5 Normal Eversion (S1) 5 Normal Comments Standing PF: pt can perform at least 20 reps with UE support against wall Right Dorsiflexion (L4) 5 Normal Inversion 5 Normal Eversion (S1) 5 Normal Comments Standing PF: pt can perform at least 20 reps with UE support against wall Toe Strength Toe Manual Muscle Testing Left Great Toe Extension 4 Good Right Great Toe Extension 3 Fair PT-OP-Q Treatments Start: 06/26/20 09:32 Freq: Status: Active Protocol: Document 07/13/20 10:31 MB (Rec: 07/13/20 11:01 MB [id number]) Therapeutic Exercises Supine Exercises Maurice stretch Side bilateral Reps/Minutes 1 rep, 1' hold Comments Abdominal drawing in first Abdominal drawing in Comments Performed before Maurice stretch today Standing Exercises Gastroc and soleus stretches Side bilateral Comments Many reps to get position correct Manual Therapy Treatment Other Other Manual Treatments B plantar fascia and gastrocsoleus STM, gentle B phalange mobs Self-Care/Home Management Treatment Education Other Education How to modify use of [place] sock and try on her right foot. PT-OP-T Assessment and Plan Start: 06/26/20 09:32 Freq: Status: Active Protocol: Document 07/13/20 10:31 MB (Rec: 07/13/20 11:01 MB [id number]) Physical Therapy Assessment Rehab Potential Rehabilitation Potential Good Evaluation Complexity Number of Personal Factors/Comorbidities 1-2 Number of Body Systems Impaired 1-2 Clinical Presentation at Evaluation Evolving Impairments Impairments Activity Tolerance,Balance, Pain,Posture,ROM,Soft Tissue Mobility,Strength Goals 4 Penitentiary Goal (LTG) Pt will perform progressive HEP with I including flexibility, balance and strengthening exercises to decrease pain and improve functional strength by 2019. LTG Duration 8 weeks 3 Penitentiary Goal (LTG) Pt will present WNLs on a standardized balance test to improve balance and walking by 08/24/2020. LTG Duration 8 weeks 2 Penitentiary Goal (LTG) Pt will gait train at least 1500 feet in 6 minutes with reports of no more than 2/10 left foot pain to prepare pt to return to walking several miles a day by 08/24/2020. LTG Duration 8 weeks 1 Penitentiary Goal (LTG) Pt will be able to walk 1 mile with reports of no more than 2/10 left foot pain to allow return to prior active lifestyle by 08/24/2020. LTG Duration 8 weeks Assessment Summary Assessment Reviewed exercises today to work on form and answer questions for calf stretch. Manual work to assist with fascial tension. Con't progression. Physical Therapy Plan Frequency and Duration Frequency of Treatment 2x/Week Duration of Treatment 8 weeks Plan of Care Start Date 06/26/20 Plan of Care End Date 08/24/20 Therapeutic Interventions Therapeutic Interventions Balance Training,Canalithic Repositioning,Coordination Training,Gait Training,Home Exercise Program,Joint Mobilizations,Manual Therapy, Neuromuscular Re-education, Patient/Caregiver Education, Self-Care/Home Management, Sensory Integration,Soft Tissue Mobilization,Taping, Therapeutic Activities, Therapeutic Exercises Modalities Cold Pack/Ice Massage,Electric Stimulation,Hot Packs, Ultrasound Other Referrals/Consults Referrals/Consults Recommended Functional medicine pharmacist to discuss inflammatory concerns Next Visit Focus/Plan Next Note Type Treatment Note Next Visit Plan Progress exercises, strengthening in ankles, hips and knees, balance
--- NOTE | 2020-07-18 08:17 | PT.OTN ---
Current Diagnoses Pain in right foot (07/18/20) Pain in left foot (07/18/20) Physical Therapy Treatment Note PT-OP-A Visit Information Start: 06/26/20 09:32 Freq: Status: Active Protocol: Document 07/18/20 07:32 MB (Rec: 07/18/20 07:49 MB [id number]) Out-Patient Physical Therapy Visit Information Visit Information Visit Type Treatment Note Visit Start Time 07:32 Visit Stop Time 08:15 Total Visit Minutes 43 Visit Number 7 PT-OP-B Current Condition Start: 06/26/20 09:32 Freq: Status: Active Protocol: Document 06/26/20 10:32 MB (Rec: 06/26/20 10:53 MB [id number]) Current Condition History of Current Condition Onset Date March 2020 Current Complaints B foot pain, worse on the left with WB activity History of Current Condition At the end of March, pt was spending a lot of time remodeling a house and had increased B foot pain and greater on the left. She points to dorsal left foot at the cuboid area. Her right foot pain is better. Pt reports 3/10 right foot pain and 6/10 left foot pain. She is afraid to exercise d/t pain. 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 She is wearing arch support and that does relieve some of the pain. Pt states that she has a history of tendinits and calcifications form B shoulders and hips. She was dx with OA LB. She has had chronic inflammation and one MRI showed right trochanter bursa inflammation. Pt reports that she had a fall two weeks ago. She was overconfident using a hover board. She reached forward on her couch and the board moved out from behind her. She hit the back of her head. Her right shoulder flared up. She stretched, iced and rested and then was symptom-free. She has had a headache for the last couple of days. Pt reports that over the last few months, she has not been very hungry and she has been losing weight. It almost feels like symptoms but she knows she is not d/t IUD. She is nauseated. She has had increased stress. Pt works at [employer] and manages a lot with her job. She is working from home and is helping her two teenagers at home with school. The remodel of the house is still ongoing. Pt reports history of inflammatory response. Prior Treatments and Tests PT in the past for multi-joint pain, pt reports sensitivity to touch. X-ray left foot 05/12/2020: accessory ossicle lateral to proximal cuboid bone, small achilles tendon insertion spur at posterior calcaneus and scant spur at the plantar fascia Treatment Goals Patient/Caregiver Goals To get back to walking 3-4 miles a day. PT-OP-C Subjective Start: 06/26/20 09:32 Freq: Status: Active Protocol: Document 07/18/20 07:32 MB (Rec: 07/18/20 07:49 MB [id number]) OP-PT Subjective Patient Comments Patient Comments I can wear the [place] sock on my right foot all night and on my left foot only a couple of hours. I noticed the increased pain on outside of my left foot with increased activity and at rest after an active day and that is not better. PT-OP-G Mobility & Gait Start: 06/26/20 09:32 Freq: Status: Active Protocol: Document 06/26/20 10:32 MB (Rec: 06/26/20 13:00 MB [id number]) OP Gait Assessment Gait Gait Assistance Required: Independent Distance (Feet) 100 Assistive Devices Assistive Device None Gait Deviations General Gait Pattern Within Normal Limits Factors Limiting Gait Function Factors Limiting Gait Function Pain Comments Gait Comments Pt tends to put more weight through B first ray and great toe for stepping, as if reaching through her toes. This is greater on the right. She has decreased Astrid angle B PT-OP-J Posture/Palpation/Skin Start: 06/26/20 09:32 Freq: Status: Active Protocol: Document 06/26/20 10:32 MB (Rec: 06/26/20 13:00 MB [id number]) Posture Evaluation Comments Posture Comments Standing posture: forward head , rounded shoulders, Dowager's hump, increased lumbar lordosis and anterior tilt pelvis, right shoulder elevation and right scapula elevation and protraction, right iliac crest higher than the left and pt does have spinal curvature. Decreased astrid angle B, increased knee extension, B thigh approximation, increased business support professional through B great toes, rearfoot and midfoot positions change as pt shifts stance, she tends to stand with the left foot back compared to the right when asked to stand with feet even. Skin Assessment Other Assessments Skin Assessment Comments Left ankle is mildly more edematous than the right in the dorsal part of the joint and foot, though she has sock loyola on both feet and ankles. PT-OP-K Range of Motion Start: 06/26/20 09:32 Freq: Status: Active Protocol: Document 06/26/20 10:32 MB (Rec: 06/26/20 13:00 MB [id number]) Ankle and Foot Goniometric Range of Motion Ankle and Foot ROM Limitations Comments B great toe extension reduced to only a few degrees off neutral. B DF close to neutral . Both great toe extension and DF slightly more limited on the right PT-OP-M Strength Start: 06/26/20 09:32 Freq: Status: Active Protocol: Document 06/26/20 10:32 MB (Rec: 06/26/20 13:00 MB [id number]) Hip Strength Hip Manual Muscle Testing Left Flexion (L2) 5 Normal Abduction 5 Normal Comments Pt supine Right Flexion (L2) 5 Normal Abduction 4 Good Comments Pt supine Knee Strength Knee Manual Muscle Testing Left Flexion (S2) 5 Normal Extension (L3) 5 Normal Comments Pt supine Right Flexion (S2) 5 Normal Extension (L3) 5 Normal Comments Pt supine Ankle/Foot Strength Ankle and Foot Manual Muscle Testing Left Dorsiflexion (L4) 5 Normal Inversion 5 Normal Eversion (S1) 5 Normal Comments Standing PF: pt can perform at least 20 reps with UE support against wall Right Dorsiflexion (L4) 5 Normal Inversion 5 Normal Eversion (S1) 5 Normal Comments Standing PF: pt can perform at least 20 reps with UE support against wall Toe Strength Toe Manual Muscle Testing Left Great Toe Extension 4 Good Right Great Toe Extension 3 Fair PT-OP-Q Treatments Start: 06/26/20 09:32 Freq: Status: Active Protocol: Document 07/18/20 07:32 MB (Rec: 07/18/20 07:49 MB [id number]) Manual Therapy Treatment Other Other Manual Treatments STM left plantar fascia, gentle mobs phalanges and metatarsals, plantar flexors. Self-Care/Home Management Treatment Education Other Education Pt brings in [place] sock for PT to assess position of it on both feet. The positioning is good. She states that the dog sleeps on her feet and ed to have the pt off the bed. PT answers questions about positioning. PT-OP-T Assessment and Plan Start: 06/26/20 09:32 Freq: Status: Active Protocol: Document 07/18/20 07:32 MB (Rec: 07/18/20 07:49 MB [id number]) Physical Therapy Assessment Rehab Potential Rehabilitation Potential Good Evaluation Complexity Number of Personal Factors/Comorbidities 1-2 Number of Body Systems Impaired 1-2 Clinical Presentation at Evaluation Evolving Impairments Impairments Activity Tolerance,Balance, Pain,Posture,ROM,Soft Tissue Mobility,Strength Goals 4 Amusement Ride Inspector Goal (LTG) Pt will perform progressive HEP with I including flexibility, balance and strengthening exercises to decrease pain and improve functional strength by 2019. LTG Duration 8 weeks 3 Amusement Ride Inspector Goal (LTG) Pt will present WNLs on a standardized balance test to improve balance and walking by 08/24/2020. LTG Duration 8 weeks 2 Amusement Ride Inspector Goal (LTG) Pt will gait train at least 1500 feet in 6 minutes with reports of no more than 2/10 left foot pain to prepare pt to return to walking several miles a day by 08/24/2020. LTG Duration 8 weeks 1 Snf Goal (LTG) Pt will be able to walk 1 mile with reports of no more than 2/10 left foot pain to allow return to prior active lifestyle by 08/24/2020. LTG Duration 8 weeks Assessment Summary Assessment Manual work today to further assess and treat left fascial tension today. She does have plantar fascial tension. Consider Counterstrain next treatment to assess all the fascial systems. Physical Therapy Plan Frequency and Duration Frequency of Treatment 2x/Week Duration of Treatment 8 weeks Plan of Care Start Date 06/26/20 Plan of Care End Date 08/24/20 Therapeutic Interventions Therapeutic Interventions Balance Training,Canalithic Repositioning,Coordination Training,Gait Training,Home Exercise Program,Joint Mobilizations,Manual Therapy, Neuromuscular Re-education, Patient/Caregiver Education, Self-Care/Home Management, Sensory Integration,Soft Tissue Mobilization,Taping, Therapeutic Activities, Therapeutic Exercises Modalities Cold Pack/Ice Massage,Electric Stimulation,Hot Packs, Ultrasound Other Referrals/Consults Referrals/Consults Recommended Functional medicine pharmacist to discuss inflammatory concerns Next Visit Focus/Plan Next Note Type Treatment Note Next Visit Plan Consider Counterstrain, Progress exercises, strengthening in ankles, hips and knees, balance
--- NOTE | 2020-07-24 13:06 | PT.OTN ---
Current Diagnoses Pain in right foot (07/24/20) Pain in left foot (07/24/20) Physical Therapy Treatment Note PT-OP-A Visit Information Start: 06/26/20 09:32 Freq: Status: Active Protocol: Document 07/24/20 12:17 MB (Rec: 07/24/20 13:06 MB [id number]) Out-Patient Physical Therapy Visit Information Visit Information Visit Type Treatment Note Visit Start Time 12:17 Visit Stop Time 13:00 Total Visit Minutes 43 Visit Number 8 PT-OP-B Current Condition Start: 06/26/20 09:32 Freq: Status: Active Protocol: Document 06/26/20 10:32 MB (Rec: 06/26/20 10:53 MB [id number]) Current Condition History of Current Condition Onset Date March 2020 Current Complaints B foot pain, worse on the left with WB activity History of Current Condition At the end of March, pt was spending a lot of time remodeling a house and had increased B foot pain and greater on the left. She points to dorsal left foot at the cuboid area. Her right foot pain is better. Pt reports 3/10 right foot pain and 6/10 left foot pain. She is afraid to exercise d/t pain. 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 She is wearing arch support and that does relieve some of the pain. Pt states that she has a history of tendinits and calcifications form B shoulders and hips. She was dx with OA LB. She has had chronic inflammation and one MRI showed right trochanter bursa inflammation. Pt reports that she had a fall two weeks ago. She was overconfident using a hover board. She reached forward on her couch and the board moved out from behind her. She hit the back of her head. Her right shoulder flared up. She stretched, iced and rested and then was symptom-free. She has had a headache for the last couple of days. Pt reports that over the last few months, she has not been very hungry and she has been losing weight. It almost feels like symptoms but she knows she is not d/t IUD. She is nauseated. She has had increased stress. Pt works at [employer] and manages a lot with her job. She is working from home and is helping her two teenagers at home with school. The remodel of the house is still ongoing. Pt reports history of inflammatory response. Prior Treatments and Tests PT in the past for multi-joint pain, pt reports sensitivity to touch. X-ray left foot 05/12/2020: accessory ossicle lateral to proximal cuboid bone, small achilles tendon insertion spur at posterior calcaneus and scant spur at the plantar fascia Treatment Goals Patient/Caregiver Goals To get back to walking 3-4 miles a day. PT-OP-C Subjective Start: 06/26/20 09:32 Freq: Status: Active Protocol: Document 07/24/20 12:17 MB (Rec: 07/24/20 13:06 MB [id number]) OP-PT Subjective Patient Comments Patient Comments I'm having a really rough day with my foot. Pt reports increased discomfort in her anterolateral left foot today. Pt reports that she spent one day working at the property, one day house cleaning, one day cooking and another day working on the property. She is wearing athletic shoes and no foot braces. The [place] sock is going better. PT-OP-G Mobility & Gait Start: 06/26/20 09:32 Freq: Status: Active Protocol: Document 06/26/20 10:32 MB (Rec: 06/26/20 13:00 MB [id number]) OP Gait Assessment Gait Gait Assistance Required: Independent Distance (Feet) 100 Assistive Devices Assistive Device None Gait Deviations General Gait Pattern Within Normal Limits Factors Limiting Gait Function Factors Limiting Gait Function Pain Comments Gait Comments Pt tends to put more weight through B first ray and great toe for stepping, as if reaching through her toes. This is greater on the right. She has decreased Astrid angle B PT-OP-J Posture/Palpation/Skin Start: 06/26/20 09:32 Freq: Status: Active Protocol: Document 06/26/20 10:32 MB (Rec: 06/26/20 13:00 MB [id number]) Posture Evaluation Comments Posture Comments Standing posture: forward head , rounded shoulders, Dowager's hump, increased lumbar lordosis and anterior tilt pelvis, right shoulder elevation and right scapula elevation and protraction, right iliac crest higher than the left and pt does have spinal curvature. Decreased astrid angle B, increased knee extension, B thigh approximation, increased practice specialist through B great toes, rearfoot and midfoot positions change as pt shifts stance, she tends to stand with the left foot back compared to the right when asked to stand with feet even. Skin Assessment Other Assessments Skin Assessment Comments Left ankle is mildly more edematous than the right in the dorsal part of the joint and foot, though she has sock loyola on both feet and ankles. PT-OP-K Range of Motion Start: 06/26/20 09:32 Freq: Status: Active Protocol: Document 06/26/20 10:32 MB (Rec: 06/26/20 13:00 MB [id number]) Ankle and Foot Goniometric Range of Motion Ankle and Foot ROM Limitations Comments B great toe extension reduced to only a few degrees off neutral. B DF close to neutral . Both great toe extension and DF slightly more limited on the right PT-OP-M Strength Start: 06/26/20 09:32 Freq: Status: Active Protocol: Document 06/26/20 10:32 MB (Rec: 06/26/20 13:00 MB [id number]) Hip Strength Hip Manual Muscle Testing Left Flexion (L2) 5 Normal Abduction 5 Normal Comments Pt supine Right Flexion (L2) 5 Normal Abduction 4 Good Comments Pt supine Knee Strength Knee Manual Muscle Testing Left Flexion (S2) 5 Normal Extension (L3) 5 Normal Comments Pt supine Right Flexion (S2) 5 Normal Extension (L3) 5 Normal Comments Pt supine Ankle/Foot Strength Ankle and Foot Manual Muscle Testing Left Dorsiflexion (L4) 5 Normal Inversion 5 Normal Eversion (S1) 5 Normal Comments Standing PF: pt can perform at least 20 reps with UE support against wall Right Dorsiflexion (L4) 5 Normal Inversion 5 Normal Eversion (S1) 5 Normal Comments Standing PF: pt can perform at least 20 reps with UE support against wall Toe Strength Toe Manual Muscle Testing Left Great Toe Extension 4 Good Right Great Toe Extension 3 Fair PT-OP-Q Treatments Start: 06/26/20 09:32 Freq: Status: Active Protocol: Document 07/24/20 12:17 MB (Rec: 07/24/20 13:06 MB [id number]) Therapeutic Exercises Supine Exercises Racquet ball MWM calves Side bilateral Comments Ball on TrP and pt performing active DF/PF Manual Therapy Treatment Other Other Manual Treatments STM left plantar fascia, gentle mobs phalanges and metatarsals, plantar flexors. Pt with edema lateral ankle and dorsal foot and consider compression in the future Self-Care/Home Management Treatment Education Other Education Foot wear benefits, ed in fitting, possible orthotic and benefits of fly winder, getting back to yoga everyday PT-OP-T Assessment and Plan Start: 06/26/20 09:32 Freq: Status: Active Protocol: Document 07/24/20 12:17 MB (Rec: 07/24/20 13:06 MB [id number]) Physical Therapy Assessment Rehab Potential Rehabilitation Potential Good Evaluation Complexity Number of Personal Factors/Comorbidities 1-2 Number of Body Systems Impaired 1-2 Clinical Presentation at Evaluation Evolving Impairments Impairments Activity Tolerance,Balance, Pain,Posture,ROM,Soft Tissue Mobility,Strength Goals 4 Clinical Laboratory Aide Goal (LTG) Pt will perform progressive HEP with I including flexibility, balance and strengthening exercises to decrease pain and improve functional strength by 2019. LTG Duration 8 weeks 3 Retirement Goal (LTG) Pt will present WNLs on a standardized balance test to improve balance and walking by 08/24/2020. LTG Duration 8 weeks 2 Retirement Goal (LTG) Pt will gait train at least 1500 feet in 6 minutes with reports of no more than 2/10 left foot pain to prepare pt to return to walking several miles a day by 08/24/2020. LTG Duration 8 weeks 1 Clinical Laboratory Aide Goal (LTG) Pt will be able to walk 1 mile with reports of no more than 2/10 left foot pain to allow return to prior active lifestyle by 08/24/2020. LTG Duration 8 weeks Assessment Summary Assessment Pt con't with anatomical change left foot and reports of pain over it. PT recommends return to provider and referral to fly winder. Physical Therapy Plan Frequency and Duration Frequency of Treatment 2x/Week Duration of Treatment 8 weeks Plan of Care Start Date 06/26/20 Plan of Care End Date 08/24/20 Therapeutic Interventions Therapeutic Interventions Balance Training,Canalithic Repositioning,Coordination Training,Gait Training,Home Exercise Program,Joint Mobilizations,Manual Therapy, Neuromuscular Re-education, Patient/Caregiver Education, Self-Care/Home Management, Sensory Integration,Soft Tissue Mobilization,Taping, Therapeutic Activities, Therapeutic Exercises Modalities Cold Pack/Ice Massage,Electric Stimulation,Hot Packs, Ultrasound Other Referrals/Consults Referrals/Consults Recommended Functional medicine pharmacist to discuss inflammatory concerns, podiatry consult Next Visit Focus/Plan Next Note Type Treatment Note Next Visit Plan Consider Counterstrain, Progress exercises, strengthening in ankles, hips and knees, balance
--- NOTE | 2020-07-28 11:22 | PT.OTN ---
Current Diagnoses Pain in right foot (07/28/20) Pain in left foot (07/28/20) Physical Therapy Treatment Note PT-OP-A Visit Information Start: 06/26/20 09:32 Freq: Status: Active Protocol: Document 07/28/20 10:39 MB (Rec: 07/28/20 11:22 MB [id number]) Out-Patient Physical Therapy Visit Information Visit Information Visit Type Treatment Note Visit Start Time 10:39 Visit Stop Time 11:17 Total Visit Minutes 38 Visit Number 9 PT-OP-B Current Condition Start: 06/26/20 09:32 Freq: Status: Active Protocol: Document 06/26/20 10:32 MB (Rec: 06/26/20 10:53 MB [id number]) Current Condition History of Current Condition Onset Date March 2020 Current Complaints B foot pain, worse on the left with WB activity History of Current Condition At the end of March, pt was spending a lot of time remodeling a house and had increased B foot pain and greater on the left. She points to dorsal left foot at the cuboid area. Her right foot pain is better. Pt reports 3/10 right foot pain and 6/10 left foot pain. She is afraid to exercise d/t pain. 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 She is wearing arch support and that does relieve some of the pain. Pt states that she has a history of tendinits and calcifications form B shoulders and hips. She was dx with OA LB. She has had chronic inflammation and one MRI showed right trochanter bursa inflammation. Pt reports that she had a fall two weeks ago. She was overconfident using a hover board. She reached forward on her couch and the board moved out from behind her. She hit the back of her head. Her right shoulder flared up. She stretched, iced and rested and then was symptom-free. She has had a headache for the last couple of days. Pt reports that over the last few months, she has not been very hungry and she has been losing weight. It almost feels like symptoms but she knows she is not d/t IUD. She is nauseated. She has had increased stress. Pt works at [employer] and manages a lot with her job. She is working from home and is helping her two teenagers at home with school. The remodel of the house is still ongoing. Pt reports history of inflammatory response. Prior Treatments and Tests PT in the past for multi-joint pain, pt reports sensitivity to touch. X-ray left foot 05/12/2020: accessory ossicle lateral to proximal cuboid bone, small achilles tendon insertion spur at posterior calcaneus and scant spur at the plantar fascia Treatment Goals Patient/Caregiver Goals To get back to walking 3-4 miles a day. PT-OP-C Subjective Start: 06/26/20 09:32 Freq: Status: Active Protocol: Document 07/28/20 10:39 MB (Rec: 07/28/20 11:22 MB [id number]) OP-PT Subjective Patient Comments Patient Comments I got a call from the doctor' s office but they did not leave a message when PT asks pt if she heard from DrRoger office after PT received email return from provider about agreement of podiatry consult. Pt asks for strategies about going shopping. PT-OP-G Mobility & Gait Start: 06/26/20 09:32 Freq: Status: Active Protocol: Document 06/26/20 10:32 MB (Rec: 06/26/20 13:00 MB [id number]) OP Gait Assessment Gait Gait Assistance Required: Independent Distance (Feet) 100 Assistive Devices Assistive Device None Gait Deviations General Gait Pattern Within Normal Limits Factors Limiting Gait Function Factors Limiting Gait Function Pain Comments Gait Comments Pt tends to put more weight through B first ray and great toe for stepping, as if reaching through her toes. This is greater on the right. She has decreased Astrid angle B PT-OP-J Posture/Palpation/Skin Start: 06/26/20 09:32 Freq: Status: Active Protocol: Document 06/26/20 10:32 MB (Rec: 06/26/20 13:00 MB [id number]) Posture Evaluation Comments Posture Comments Standing posture: forward head , rounded shoulders, Dowager's hump, increased lumbar lordosis and anterior tilt pelvis, right shoulder elevation and right scapula elevation and protraction, right iliac crest higher than the left and pt does have spinal curvature. Decreased astrid angle B, increased knee extension, B thigh approximation, increased director equipment through B great toes, rearfoot and midfoot positions change as pt shifts stance, she tends to stand with the left foot back compared to the right when asked to stand with feet even. Skin Assessment Other Assessments Skin Assessment Comments Left ankle is mildly more edematous than the right in the dorsal part of the joint and foot, though she has sock loyola on both feet and ankles. PT-OP-K Range of Motion Start: 06/26/20 09:32 Freq: Status: Active Protocol: Document 06/26/20 10:32 MB (Rec: 06/26/20 13:00 MB [id number]) Ankle and Foot Goniometric Range of Motion Ankle and Foot ROM Limitations Comments B great toe extension reduced to only a few degrees off neutral. B DF close to neutral . Both great toe extension and DF slightly more limited on the right PT-OP-M Strength Start: 06/26/20 09:32 Freq: Status: Active Protocol: Document 06/26/20 10:32 MB (Rec: 06/26/20 13:00 MB [id number]) Hip Strength Hip Manual Muscle Testing Left Flexion (L2) 5 Normal Abduction 5 Normal Comments Pt supine Right Flexion (L2) 5 Normal Abduction 4 Good Comments Pt supine Knee Strength Knee Manual Muscle Testing Left Flexion (S2) 5 Normal Extension (L3) 5 Normal Comments Pt supine Right Flexion (S2) 5 Normal Extension (L3) 5 Normal Comments Pt supine Ankle/Foot Strength Ankle and Foot Manual Muscle Testing Left Dorsiflexion (L4) 5 Normal Inversion 5 Normal Eversion (S1) 5 Normal Comments Standing PF: pt can perform at least 20 reps with UE support against wall Right Dorsiflexion (L4) 5 Normal Inversion 5 Normal Eversion (S1) 5 Normal Comments Standing PF: pt can perform at least 20 reps with UE support against wall Toe Strength Toe Manual Muscle Testing Left Great Toe Extension 4 Good Right Great Toe Extension 3 Fair PT-OP-Q Treatments Start: 06/26/20 09:32 Freq: Status: Active Protocol: Document 07/28/20 10:39 MB (Rec: 07/28/20 11:22 MB [id number]) Manual Therapy Treatment Other Other Manual Treatments STM left greater than right plantar fascia (compare sides) , gentle mobs phalanges and metatarsals, STM left anterior tibialis, fibularis and PFs Self-Care/Home Management Treatment Education Other Education Extensive education on strategies for good foot care when she takes daughter shopping--wear comfortable boots, weaning off foot braces but only when wearing comfortable boots, recommendations for certified nurse operating room questions, foot wear, consider trying on crocks to see how they feel when at outlet mall. PT-OP-T Assessment and Plan Start: 06/26/20 09:32 Freq: Status: Active Protocol: Document 07/28/20 10:39 MB (Rec: 07/28/20 11:22 MB [id number]) Physical Therapy Assessment Rehab Potential Rehabilitation Potential Good Evaluation Complexity Number of Personal Factors/Comorbidities 1-2 Number of Body Systems Impaired 1-2 Clinical Presentation at Evaluation Evolving Impairments Impairments Activity Tolerance,Balance, Pain,Posture,ROM,Soft Tissue Mobility,Strength Goals 4 Care Home Goal (LTG) Pt will perform progressive HEP with I including flexibility, balance and strengthening exercises to decrease pain and improve functional strength by 2019. LTG Duration 8 weeks 3 Communication Assistant Goal (LTG) Pt will present WNLs on a standardized balance test to improve balance and walking by 08/24/2020. LTG Duration 8 weeks 2 Communication Assistant Goal (LTG) Pt will gait train at least 1500 feet in 6 minutes with reports of no more than 2/10 left foot pain to prepare pt to return to walking several miles a day by 08/24/2020. LTG Duration 8 weeks 1 Communication Assistant Goal (LTG) Pt will be able to walk 1 mile with reports of no more than 2/10 left foot pain to allow return to prior active lifestyle by 08/24/2020. LTG Duration 8 weeks Assessment Summary Assessment Pt to call doctor office about referral to certified nurse operating room. She con't with anatomical changes. Pt asks good questions about foot care and PT answers today . Plantar fascia tension left foot is better and she has left anterior tib tension today. Physical Therapy Plan Frequency and Duration Frequency of Treatment 2x/Week Duration of Treatment 8 weeks Plan of Care Start Date 06/26/20 Plan of Care End Date 08/24/20 Therapeutic Interventions Therapeutic Interventions Balance Training,Canalithic Repositioning,Coordination Training,Gait Training,Home Exercise Program,Joint Mobilizations,Manual Therapy, Neuromuscular Re-education, Patient/Caregiver Education, Self-Care/Home Management, Sensory Integration,Soft Tissue Mobilization,Taping, Therapeutic Activities, Therapeutic Exercises Modalities Cold Pack/Ice Massage,Electric Stimulation,Hot Packs, Ultrasound Other Referrals/Consults Referrals/Consults Recommended Functional medicine pharmacist to discuss inflammatory concerns, podiatry consult Next Visit Focus/Plan Next Note Type Treatment Note Next Visit Plan Consider Counterstrain, Progress exercises, strengthening in ankles, hips and knees, balance
--- NOTE | 2020-07-31 09:37 | PT.OTN ---
Current Diagnoses Pain in right foot (07/31/20) Pain in left foot (07/31/20) Physical Therapy Treatment Note PT-OP-A Visit Information Start: 06/26/20 09:32 Freq: Status: Active Protocol: Document 07/31/20 07:31 MB (Rec: 07/31/20 07:56 MB [id number]) Out-Patient Physical Therapy Visit Information Visit Information Visit Type Progress Note Visit Start Time 07:31 Visit Stop Time 08:09 Total Visit Minutes 38 Visit Number 10 PT-OP-B Current Condition Start: 06/26/20 09:32 Freq: Status: Active Protocol: Document 06/26/20 10:32 MB (Rec: 06/26/20 10:53 MB [id number]) Current Condition History of Current Condition Onset Date March 2020 Current Complaints B foot pain, worse on the left with WB activity History of Current Condition At the end of March, pt was spending a lot of time remodeling a house and had increased B foot pain and greater on the left. She points to dorsal left foot at the cuboid area. Her right foot pain is better. Pt reports 3/10 right foot pain and 6/10 left foot pain. She is afraid to exercise d/t pain. 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 She is wearing arch support and that does relieve some of the pain. Pt states that she has a history of tendinits and calcifications form B shoulders and hips. She was dx with OA LB. She has had chronic inflammation and one MRI showed right trochanter bursa inflammation. Pt reports that she had a fall two weeks ago. She was overconfident using a hover board. She reached forward on her couch and the board moved out from behind her. She hit the back of her head. Her right shoulder flared up. She stretched, iced and rested and then was symptom-free. She has had a headache for the last couple of days. Pt reports that over the last few months, she has not been very hungry and she has been losing weight. It almost feels like symptoms but she knows she is not d/t IUD. She is nauseated. She has had increased stress. Pt works at [employer] and manages a lot with her job. She is working from home and is helping her two teenagers at home with school. The remodel of the house is still ongoing. Pt reports history of inflammatory response. Prior Treatments and Tests PT in the past for multi-joint pain, pt reports sensitivity to touch. X-ray left foot 05/12/2020: accessory ossicle lateral to proximal cuboid bone, small achilles tendon insertion spur at posterior calcaneus and scant spur at the plantar fascia Treatment Goals Patient/Caregiver Goals To get back to walking 3-4 miles a day. PT-OP-C Subjective Start: 06/26/20 09:32 Freq: Status: Active Protocol: Document 07/31/20 07:31 MB (Rec: 07/31/20 07:56 MB [id number]) OP-PT Subjective Patient Comments Patient Comments I was up until 2 a.m. at the house, so I'm low on energy. I think my foot is a little symptomatic. The house work is complete! Pt did not get to talk to doctor's office yet about podiatry consult. She feels that PT exercises and and manual work have been helpful. PT-OP-G Mobility & Gait Start: 06/26/20 09:32 Freq: Status: Active Protocol: Document 06/26/20 10:32 MB (Rec: 06/26/20 13:00 MB [id number]) OP Gait Assessment Gait Gait Assistance Required: Independent Distance (Feet) 100 Assistive Devices Assistive Device None Gait Deviations General Gait Pattern Within Normal Limits Factors Limiting Gait Function Factors Limiting Gait Function Pain Comments Gait Comments Pt tends to put more weight through B first ray and great toe for stepping, as if reaching through her toes. This is greater on the right. She has decreased Astrid angle B PT-OP-J Posture/Palpation/Skin Start: 06/26/20 09:32 Freq: Status: Active Protocol: Document 06/26/20 10:32 MB (Rec: 06/26/20 13:00 MB [id number]) Posture Evaluation Comments Posture Comments Standing posture: forward head , rounded shoulders, Dowager's hump, increased lumbar lordosis and anterior tilt pelvis, right shoulder elevation and right scapula elevation and protraction, right iliac crest higher than the left and pt does have spinal curvature. Decreased astrid angle B, increased knee extension, B thigh approximation, increased environmental health specialist through B great toes, rearfoot and midfoot positions change as pt shifts stance, she tends to stand with the left foot back compared to the right when asked to stand with feet even. Skin Assessment Other Assessments Skin Assessment Comments Left ankle is mildly more edematous than the right in the dorsal part of the joint and foot, though she has sock loyola on both feet and ankles. PT-OP-K Range of Motion Start: 06/26/20 09:32 Freq: Status: Active Protocol: Document 06/26/20 10:32 MB (Rec: 06/26/20 13:00 MB [id number]) Ankle and Foot Goniometric Range of Motion Ankle and Foot ROM Limitations Comments B great toe extension reduced to only a few degrees off neutral. B DF close to neutral . Both great toe extension and DF slightly more limited on the right PT-OP-M Strength Start: 06/26/20 09:32 Freq: Status: Active Protocol: Document 06/26/20 10:32 MB (Rec: 06/26/20 13:00 MB [id number]) Hip Strength Hip Manual Muscle Testing Left Flexion (L2) 5 Normal Abduction 5 Normal Comments Pt supine Right Flexion (L2) 5 Normal Abduction 4 Good Comments Pt supine Knee Strength Knee Manual Muscle Testing Left Flexion (S2) 5 Normal Extension (L3) 5 Normal Comments Pt supine Right Flexion (S2) 5 Normal Extension (L3) 5 Normal Comments Pt supine Ankle/Foot Strength Ankle and Foot Manual Muscle Testing Left Dorsiflexion (L4) 5 Normal Inversion 5 Normal Eversion (S1) 5 Normal Comments Standing PF: pt can perform at least 20 reps with UE support against wall Right Dorsiflexion (L4) 5 Normal Inversion 5 Normal Eversion (S1) 5 Normal Comments Standing PF: pt can perform at least 20 reps with UE support against wall Toe Strength Toe Manual Muscle Testing Left Great Toe Extension 4 Good Right Great Toe Extension 3 Fair PT-OP-Q Treatments Start: 06/26/20 09:32 Freq: Status: Active Protocol: Document 07/31/20 07:31 MB (Rec: 07/31/20 07:56 MB [id number]) Therapeutic Exercises Other Exercises Review HEP Comments Verbally reviewed HEP during progress note Gait Training Gait Activity 6MWT Comments Pt has 4/10 left foot pain before gait. She is wearing her athletic shoes today and PT KT before gait. Pt can tolerate 2 min 40 sec gait and gait trains 692 feet. Her pain reduces to 2/10 at start and then she has the burning pain and gait stopped. Manual Therapy Treatment Other Other Manual Treatments KT B feet: table mountain around both feet and one I strip across the left plantar fascia. Black KT Neuro Re-Education Treatment Balance Activities Balance testing today Comments Socks, KT and no shoes: EO and EC Romberg WNLs, Tandem EO B feet at least 1'; Tandem EC right foot behind 11 sec; left foot 33 sec at least and pt reports left foot 3/10 Self-Care/Home Management Treatment Education Other Education Ongoing ed for icing, foot wear (not wearing athletic shoes that cause her pain) and following up with doctor about lining mechanic consult PT-OP-T Assessment and Plan Start: 06/26/20 09:32 Freq: Status: Active Protocol: Document 07/31/20 07:31 MB (Rec: 07/31/20 07:56 MB [id number]) Physical Therapy Assessment Rehab Potential Rehabilitation Potential Fair Evaluation Complexity Number of Personal Factors/Comorbidities 1-2 Number of Body Systems Impaired 1-2 Clinical Presentation at Evaluation Evolving Impairments Impairments Activity Tolerance,Balance, Pain,Posture,ROM,Soft Tissue Mobility,Strength Goals 4 Retirement Goal (LTG) Pt will perform progressive HEP with I including flexibility, balance and strengthening exercises to decrease pain and improve functional strength by 2020. 07/31/2020: Pt is doing exercises as able d/t working on the house and she is done with this LTG Duration 8 weeks 3 Retirement Goal (LTG) Pt will present WNLs on a standardized balance test to improve balance and walking by 10/02/2020. 07/31/2020: Socks, KT and no shoes: EO and EC Romberg WNLs, Tandem EO B feet at least 1'; Tandem EC right foot behind 11 sec; left foot 33 sec at least and pt reports left foot 3/10 LTG Duration 8 weeks 2 Ukrainian Folk Arts Instructor Goal (LTG) Pt will gait train at least 1500 feet in 6 minutes with reports of no more than 2/10 left foot pain to prepare pt to return to walking several miles a day by 10/02/2020. 07/31/2020: Pt has 4/10 left foot pain before gait. She is wearing her athletic shoes today and PT KT before gait. Pt can tolerate 2 min 40 sec gait and gait trains 692 feet. Her pain reduces to 2/10 at start and then she has the burning pain and gait stopped. LTG Duration 8 weeks 1 Retirement Goal (LTG) Pt will be able to walk 1 mile with reports of no more than 2/10 left foot pain to allow return to prior active lifestyle by 10/01/2020. 07/31/2020: Pt has not yet walked a mile for exercise LTG Duration 8 weeks Assessment Summary Assessment Pt has progressed towards exercise goal since starting PT. She is able to participate with balance testing today and performs well with testing . She has greatest challenge with eyes closed with testing. She wears her uncomfortable athletic shoes today and 6MWT is stopped d/t pain. Ongoing ed to wear comfortable shoes until she is able to get some different ones. Initiated KT today to see if can change her foot support from the braces to the taping. Pt will benefit from ongoing PT to progress balance, strengthening, gait and flexibility. 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 Recommend podiatry consult. Physical Therapy Plan Frequency and Duration Frequency of Treatment 2x/Week Duration of Treatment 8 weeks Plan of Care Start Date 07/31/20 Plan of Care End Date 10/02/20 Therapeutic Interventions Therapeutic Interventions Balance Training,Canalithic Repositioning,Coordination Training,Gait Training,Home Exercise Program,Joint Mobilizations,Manual Therapy, Neuromuscular Re-education, Patient/Caregiver Education, Self-Care/Home Management, Sensory Integration,Soft Tissue Mobilization,Taping, Therapeutic Activities, Therapeutic Exercises Modalities Cold Pack/Ice Massage,Electric Stimulation,Hot Packs, Ultrasound Other Referrals/Consults Referrals/Consults Recommended Functional medicine pharmacist to discuss inflammatory concerns, podiatry consult Next Visit Focus/Plan Next Note Type Treatment Note Next Visit Plan Review her preferred yoga routine with KT if helpful and adding in current PT exercises with the yoga routine. Consider Counterstrain, Progress exercises, strengthening in ankles, hips and knees, balance
--- NOTE | 2020-07-31 09:37 | PT.OPPOC ---
Physical, Occupational & Speech Therapy At [facility] Current Diagnoses Pain in right foot (07/31/20) Pain in left foot (07/31/20) Visit Care Team Role Provider Type Precious Collazo DO Family Provider Physician Primary Care Provider Specialty: Family Practice Address: [address] [place] [address], [place], [address] Email: [email or web address] Attending Provider Advanced Ramp Flight Attendant Referring Provider Specialty: [facility] Address: [address] [place] [address], [id number] Email: [email or web address] Plan Of Care PT-OP-T Assessment and Plan Start: 06/26/20 09:32 Freq: Status: Active Protocol: Document 07/31/20 07:31 MB (Rec: 07/31/20 07:56 MB [id number]) Physical Therapy Assessment Rehab Potential Rehabilitation Potential Fair Evaluation Complexity Number of Personal Factors/Comorbidities 1-2 Number of Body Systems Impaired 1-2 Clinical Presentation at Evaluation Evolving Impairments Impairments Activity Tolerance,Balance, Pain,Posture,ROM,Soft Tissue Mobility,Strength Goals 4 Casino Investigator Goal (LTG) Pt will perform progressive HEP with I including flexibility, balance and strengthening exercises to decrease pain and improve functional strength by 2020. 07/31/2020: Pt is doing exercises as able d/t working on the house and she is done with this LTG Duration 8 weeks 3 [facility] Goal (LTG) Pt will present WNLs on a standardized balance test to improve balance and walking by 10/02/2020. 07/31/2020: Socks, KT and no shoes: EO and EC Romberg WNLs, Tandem EO B feet at least 1'; Tandem EC right foot behind 11 sec; left foot 33 sec at least and pt reports left foot 3/10 LTG Duration 8 weeks 2 [facility] Goal (LTG) Pt will gait train at least 1500 feet in 6 minutes with reports of no more than 2/10 left foot pain to prepare pt to return to walking several miles a day by 10/02/2020. 07/31/2020: Pt has 4/10 left foot pain before gait. She is wearing her athletic shoes today and PT KT before gait. Pt can tolerate 2 min 40 sec gait and gait trains 692 feet. Her pain reduces to 2/10 at start and then she has the burning pain and gait stopped. LTG Duration 8 weeks 1 [facility] Goal (LTG) Pt will be able to walk 1 mile with reports of no more than 2/10 left foot pain to allow return to prior active lifestyle by 10/01/2020. 07/31/2020: Pt has not yet walked a mile for exercise LTG Duration 8 weeks Assessment Summary Assessment Pt has progressed towards exercise goal since starting PT. She is able to participate with balance testing today and performs well with testing . She has greatest challenge with eyes closed with testing. She wears her uncomfortable athletic shoes today and 6MWT is stopped d/t pain. Ongoing ed to wear comfortable shoes until she is able to get some different ones. Initiated KT today to see if can change her foot support from the braces to the taping. Pt will benefit from ongoing PT to progress balance, strengthening, gait and flexibility. 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 Recommend podiatry consult. Physical Therapy Plan Frequency and Duration Frequency of Treatment 2x/Week Duration of Treatment 8 weeks Plan of Care Start Date 07/31/20 Plan of Care End Date 10/02/20 Therapeutic Interventions Therapeutic Interventions Balance Training,Canalithic Repositioning,Coordination Training,Gait Training,Home Exercise Program,Joint Mobilizations,Manual Therapy, Neuromuscular Re-education, Patient/Caregiver Education, Self-Care/Home Management, Sensory Integration,Soft Tissue Mobilization,Taping, Therapeutic Activities, Therapeutic Exercises Modalities Cold Pack/Ice Massage,Electric Stimulation,Hot Packs, Ultrasound Other Referrals/Consults Referrals/Consults Recommended Functional medicine pharmacist to discuss inflammatory concerns, podiatry consult Next Visit Focus/Plan Next Note Type Treatment Note Next Visit Plan Review her preferred yoga routine with KT if helpful and adding in current PT exercises with the yoga routine. Consider Counterstrain, Progress exercises, strengthening in ankles, hips and knees, balance Plan of Care Dates Plan of Care Start Date 07/31/20 Plan of Care End Date 10/02/20 Electronically Signed by: Anette Mcdowell, PT 07/31/20 0937 Please Sign and Return: I have reviewed this Plan of Care and certify that the skilled therapy services above are required to meet the patient?s needs. Physician Signature Date Printed Name and Credentials Clinical Instructor Signature Printed Name and Credentials
--- NOTE | 2020-08-09 11:21 | PT.OTN ---
Current Diagnoses Pain in right foot (08/09/20) Pain in left foot (08/09/20) Physical Therapy Treatment Note PT-OP-A Visit Information Start: 06/26/20 09:32 Freq: Status: Active Protocol: Document 08/09/20 10:36 MB (Rec: 08/09/20 11:20 MB [id number]) Out-Patient Physical Therapy Visit Information Visit Information Visit Type Treatment Note Visit Note Pt arrives late to appointment Visit Start Time 10:36 Visit Stop Time 11:15 Total Visit Minutes 39 Visit Number 11 PT-OP-B Current Condition Start: 06/26/20 09:32 Freq: Status: Active Protocol: Document 06/26/20 10:32 MB (Rec: 06/26/20 10:53 MB [id number]) Current Condition History of Current Condition Onset Date March 2020 Current Complaints B foot pain, worse on the left with WB activity History of Current Condition At the end of March, pt was spending a lot of time remodeling a house and had increased B foot pain and greater on the left. She points to dorsal left foot at the cuboid area. Her right foot pain is better. Pt reports 3/10 right foot pain and 6/10 left foot pain. She is afraid to exercise d/t pain. 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 She is wearing arch support and that does relieve some of the pain. Pt states that she has a history of tendinits and calcifications form B shoulders and hips. She was dx with OA LB. She has had chronic inflammation and one MRI showed right trochanter bursa inflammation. Pt reports that she had a fall two weeks ago. She was overconfident using a hover board. She reached forward on her couch and the board moved out from behind her. She hit the back of her head. Her right shoulder flared up. She stretched, iced and rested and then was symptom-free. She has had a headache for the last couple of days. Pt reports that over the last few months, she has not been very hungry and she has been losing weight. It almost feels like symptoms but she knows she is not d/t IUD. She is nauseated. She has had increased stress. Pt works at [employer] and manages a lot with her job. She is working from home and is helping her two teenagers at home with school. The remodel of the house is still ongoing. Pt reports history of inflammatory response. Prior Treatments and Tests PT in the past for multi-joint pain, pt reports sensitivity to touch. X-ray left foot 05/12/2020: accessory ossicle lateral to proximal cuboid bone, small achilles tendon insertion spur at posterior calcaneus and scant spur at the plantar fascia Treatment Goals Patient/Caregiver Goals To get back to walking 3-4 miles a day. PT-OP-C Subjective Start: 06/26/20 09:32 Freq: Status: Active Protocol: Document 08/09/20 10:36 MB (Rec: 08/09/20 11:20 MB [id number]) OP-PT Subjective Patient Comments Patient Comments The taping was awesome. Pt states that she has been wearing her Nikes with the tape and is doing fine. She has been working at the house. She made it shopping. PT-OP-G Mobility & Gait Start: 06/26/20 09:32 Freq: Status: Active Protocol: Document 06/26/20 10:32 MB (Rec: 06/26/20 13:00 MB [id number]) OP Gait Assessment Gait Gait Assistance Required: Independent Distance (Feet) 100 Assistive Devices Assistive Device None Gait Deviations General Gait Pattern Within Normal Limits Factors Limiting Gait Function Factors Limiting Gait Function Pain Comments Gait Comments Pt tends to put more weight through B first ray and great toe for stepping, as if reaching through her toes. This is greater on the right. She has decreased Astrid angle B PT-OP-J Posture/Palpation/Skin Start: 06/26/20 09:32 Freq: Status: Active Protocol: Document 06/26/20 10:32 MB (Rec: 06/26/20 13:00 MB [id number]) Posture Evaluation Comments Posture Comments Standing posture: forward head , rounded shoulders, Dowager's hump, increased lumbar lordosis and anterior tilt pelvis, right shoulder elevation and right scapula elevation and protraction, right iliac crest higher than the left and pt does have spinal curvature. Decreased astrid angle B, increased knee extension, B thigh approximation, increased plastic shaper through B great toes, rearfoot and midfoot positions change as pt shifts stance, she tends to stand with the left foot back compared to the right when asked to stand with feet even. Skin Assessment Other Assessments Skin Assessment Comments Left ankle is mildly more edematous than the right in the dorsal part of the joint and foot, though she has sock loyola on both feet and ankles. PT-OP-K Range of Motion Start: 06/26/20 09:32 Freq: Status: Active Protocol: Document 06/26/20 10:32 MB (Rec: 06/26/20 13:00 MB [id number]) Ankle and Foot Goniometric Range of Motion Ankle and Foot ROM Limitations Comments B great toe extension reduced to only a few degrees off neutral. B DF close to neutral . Both great toe extension and DF slightly more limited on the right PT-OP-M Strength Start: 06/26/20 09:32 Freq: Status: Active Protocol: Document 06/26/20 10:32 MB (Rec: 06/26/20 13:00 MB [id number]) Hip Strength Hip Manual Muscle Testing Left Flexion (L2) 5 Normal Abduction 5 Normal Comments Pt supine Right Flexion (L2) 5 Normal Abduction 4 Good Comments Pt supine Knee Strength Knee Manual Muscle Testing Left Flexion (S2) 5 Normal Extension (L3) 5 Normal Comments Pt supine Right Flexion (S2) 5 Normal Extension (L3) 5 Normal Comments Pt supine Ankle/Foot Strength Ankle and Foot Manual Muscle Testing Left Dorsiflexion (L4) 5 Normal Inversion 5 Normal Eversion (S1) 5 Normal Comments Standing PF: pt can perform at least 20 reps with UE support against wall Right Dorsiflexion (L4) 5 Normal Inversion 5 Normal Eversion (S1) 5 Normal Comments Standing PF: pt can perform at least 20 reps with UE support against wall Toe Strength Toe Manual Muscle Testing Left Great Toe Extension 4 Good Right Great Toe Extension 3 Fair PT-OP-Q Treatments Start: 06/26/20 09:32 Freq: Status: Active Protocol: Document 08/09/20 10:36 MB (Rec: 08/09/20 11:20 MB [id number]) Manual Therapy Treatment Other Other Manual Treatments Bone mobility LEs: B femurs move well, B tibia stiff, left fibula stiffer than the right , left tarsal bones stiffer than the right, left subtalar joint tight. Pt responds well to end-plate periosteal and treatments and B tibia move better after treatment. Her cranial scan reveals tightness in LF and LE sympathetic nerves. Self-Care/Home Management Treatment Education Other Education Ed pt in KT of feet: c strip around B feet and one to support plantar fascia bottom of left foot and pt videos and tapes her right foot and PT tapes left foot PT-OP-T Assessment and Plan Start: 06/26/20 09:32 Freq: Status: Active Protocol: Document 08/09/20 10:36 MB (Rec: 08/09/20 11:20 MB [id number]) Physical Therapy Assessment Rehab Potential Rehabilitation Potential Fair Evaluation Complexity Number of Personal Factors/Comorbidities 1-2 Number of Body Systems Impaired 1-2 Clinical Presentation at Evaluation Evolving Impairments Impairments Activity Tolerance,Balance, Pain,Posture,ROM,Soft Tissue Mobility,Strength Goals 4 Driver License Reviewing Officer Goal (LTG) Pt will perform progressive HEP with I including flexibility, balance and strengthening exercises to decrease pain and improve functional strength by 2020. 07/31/2020: Pt is doing exercises as able d/t working on the house and she is done with this LTG Duration 8 weeks 3 [facility] Goal (LTG) Pt will present WNLs on a standardized balance test to improve balance and walking by 10/02/2020. 07/31/2020: Socks, KT and no shoes: EO and EC Romberg WNLs, Tandem EO B feet at least 1'; Tandem EC right foot behind 11 sec; left foot 33 sec at least and pt reports left foot 3/10 LTG Duration 8 weeks 2 [facility] Goal (LTG) Pt will gait train at least 1500 feet in 6 minutes with reports of no more than 2/10 left foot pain to prepare pt to return to walking several miles a day by 10/02/2020. 07/31/2020: Pt has 4/10 left foot pain before gait. She is wearing her athletic shoes today and PT KT before gait. Pt can tolerate 2 min 40 sec gait and gait trains 692 feet. Her pain reduces to 2/10 at start and then she has the burning pain and gait stopped. LTG Duration 8 weeks 1 [facility] Goal (LTG) Pt will be able to walk 1 mile with reports of no more than 2/10 left foot pain to allow return to prior active lifestyle by 10/01/2020. 07/31/2020: Pt has not yet walked a mile for exercise LTG Duration 8 weeks Assessment Summary Assessment Ed pt in use and donning of KT today. Initiated periosteal fascial Counterstrain treatement today and B tibia move better AP after treatment . Her right fibula is quite tight. She will benefit from further fascial treatment including periosteal, LF and sympathetic. Con't Counterstrain. Pt states that she is feeling better. Physical Therapy Plan Frequency and Duration Frequency of Treatment 2x/Week Duration of Treatment 8 weeks Plan of Care Start Date 07/31/20 Plan of Care End Date 10/02/20 Therapeutic Interventions Therapeutic Interventions Balance Training,Canalithic Repositioning,Coordination Training,Gait Training,Home Exercise Program,Joint Mobilizations,Manual Therapy, Neuromuscular Re-education, Patient/Caregiver Education, Self-Care/Home Management, Sensory Integration,Soft Tissue Mobilization,Taping, Therapeutic Activities, Therapeutic Exercises Modalities Cold Pack/Ice Massage,Electric Stimulation,Hot Packs, Ultrasound Other Referrals/Consults Referrals/Consults Recommended Functional medicine pharmacist to discuss inflammatory concerns, podiatry consult Next Visit Focus/Plan Next Note Type Treatment Note Next Visit Plan Review her preferred yoga routine with KT if helpful and adding in current PT exercises with the yoga routine. Consider Counterstrain, Progress exercises, strengthening in ankles, hips and knees, balance
--- NOTE | 2020-08-11 11:17 | PT.OTN ---
Current Diagnoses Pain in right foot (08/11/20) Pain in left foot (08/11/20) Physical Therapy Treatment Note PT-OP-A Visit Information Start: 06/26/20 09:32 Freq: Status: Active Protocol: Document 08/11/20 10:32 DCW (Rec: 08/11/20 11:17 DCW [id number]) Out-Patient Physical Therapy Visit Information Visit Information Visit Type Treatment Note Visit Start Time 10:32 Visit Stop Time 11:15 Total Visit Minutes 43 Visit Number 12 PT-OP-B Current Condition Start: 06/26/20 09:32 Freq: Status: Active Protocol: Document 06/26/20 10:32 MB (Rec: 06/26/20 10:53 MB [id number]) Current Condition History of Current Condition Onset Date March 2020 Current Complaints B foot pain, worse on the left with WB activity History of Current Condition At the end of March, pt was spending a lot of time remodeling a house and had increased B foot pain and greater on the left. She points to dorsal left foot at the cuboid area. Her right foot pain is better. Pt reports 3/10 right foot pain and 6/10 left foot pain. She is afraid to exercise d/t pain. 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 She is wearing arch support and that does relieve some of the pain. Pt states that she has a history of tendinits and calcifications form B shoulders and hips. She was dx with OA LB. She has had chronic inflammation and one MRI showed right trochanter bursa inflammation. Pt reports that she had a fall two weeks ago. She was overconfident using a hover board. She reached forward on her couch and the board moved out from behind her. She hit the back of her head. Her right shoulder flared up. She stretched, iced and rested and then was symptom-free. She has had a headache for the last couple of days. Pt reports that over the last few months, she has not been very hungry and she has been losing weight. It almost feels like symptoms but she knows she is not d/t IUD. She is nauseated. She has had increased stress. Pt works at [employer] and manages a lot with her job. She is working from home and is helping her two teenagers at home with school. The remodel of the house is still ongoing. Pt reports history of inflammatory response. Prior Treatments and Tests PT in the past for multi-joint pain, pt reports sensitivity to touch. X-ray left foot 05/12/2020: accessory ossicle lateral to proximal cuboid bone, small achilles tendon insertion spur at posterior calcaneus and scant spur at the plantar fascia Treatment Goals Patient/Caregiver Goals To get back to walking 3-4 miles a day. PT-OP-C Subjective Start: 06/26/20 09:32 Freq: Status: Active Protocol: Document 08/11/20 10:32 DCW (Rec: 08/11/20 11:17 DCW [id number]) OP-PT Subjective Patient Comments Patient Comments Pt reports that her feet have been doing better recently. PT-OP-G Mobility & Gait Start: 06/26/20 09:32 Freq: Status: Active Protocol: Document 06/26/20 10:32 MB (Rec: 06/26/20 13:00 MB [id number]) OP Gait Assessment Gait Gait Assistance Required: Independent Distance (Feet) 100 Assistive Devices Assistive Device None Gait Deviations General Gait Pattern Within Normal Limits Factors Limiting Gait Function Factors Limiting Gait Function Pain Comments Gait Comments Pt tends to put more weight through B first ray and great toe for stepping, as if reaching through her toes. This is greater on the right. She has decreased Astrid angle B PT-OP-J Posture/Palpation/Skin Start: 06/26/20 09:32 Freq: Status: Active Protocol: Document 06/26/20 10:32 MB (Rec: 06/26/20 13:00 MB [id number]) Posture Evaluation Comments Posture Comments Standing posture: forward head , rounded shoulders, Dowager's hump, increased lumbar lordosis and anterior tilt pelvis, right shoulder elevation and right scapula elevation and protraction, right iliac crest higher than the left and pt does have spinal curvature. Decreased astrid angle B, increased knee extension, B thigh approximation, increased security officer through B great toes, rearfoot and midfoot positions change as pt shifts stance, she tends to stand with the left foot back compared to the right when asked to stand with feet even. Skin Assessment Other Assessments Skin Assessment Comments Left ankle is mildly more edematous than the right in the dorsal part of the joint and foot, though she has sock loyola on both feet and ankles. PT-OP-K Range of Motion Start: 06/26/20 09:32 Freq: Status: Active Protocol: Document 06/26/20 10:32 MB (Rec: 06/26/20 13:00 MB [id number]) Ankle and Foot Goniometric Range of Motion Ankle and Foot ROM Limitations Comments B great toe extension reduced to only a few degrees off neutral. B DF close to neutral . Both great toe extension and DF slightly more limited on the right PT-OP-M Strength Start: 06/26/20 09:32 Freq: Status: Active Protocol: Document 06/26/20 10:32 MB (Rec: 06/26/20 13:00 MB [id number]) Hip Strength Hip Manual Muscle Testing Left Flexion (L2) 5 Normal Abduction 5 Normal Comments Pt supine Right Flexion (L2) 5 Normal Abduction 4 Good Comments Pt supine Knee Strength Knee Manual Muscle Testing Left Flexion (S2) 5 Normal Extension (L3) 5 Normal Comments Pt supine Right Flexion (S2) 5 Normal Extension (L3) 5 Normal Comments Pt supine Ankle/Foot Strength Ankle and Foot Manual Muscle Testing Left Dorsiflexion (L4) 5 Normal Inversion 5 Normal Eversion (S1) 5 Normal Comments Standing PF: pt can perform at least 20 reps with UE support against wall Right Dorsiflexion (L4) 5 Normal Inversion 5 Normal Eversion (S1) 5 Normal Comments Standing PF: pt can perform at least 20 reps with UE support against wall Toe Strength Toe Manual Muscle Testing Left Great Toe Extension 4 Good Right Great Toe Extension 3 Fair PT-OP-Q Treatments Start: 06/26/20 09:32 Freq: Status: Active Protocol: Document 08/11/20 10:32 DCW (Rec: 08/11/20 11:17 DCW [id number]) Manual Therapy Treatment Other Other Manual Treatments STM to bilateral calf, R>L, joint mobilization of tarsals, MTPs, subtalar bilaterally. Fascial work on plantar surface bilaterally. PT-OP-T Assessment and Plan Start: 06/26/20 09:32 Freq: Status: Active Protocol: Document 08/11/20 10:32 DCW (Rec: 08/11/20 11:17 DCW [id number]) Physical Therapy Assessment Rehab Potential Rehabilitation Potential Fair Evaluation Complexity Number of Personal Factors/Comorbidities 1-2 Number of Body Systems Impaired 1-2 Clinical Presentation at Evaluation Evolving Impairments Impairments Activity Tolerance,Balance, Pain,Posture,ROM,Soft Tissue Mobility,Strength Goals 4 [facility] Living Goal (LTG) Pt will perform progressive HEP with I including flexibility, balance and strengthening exercises to decrease pain and improve functional strength by 2020. 07/31/2020: Pt is doing exercises as able d/t working on the house and she is done with this LTG Duration 8 weeks 3 [facility] Goal (LTG) Pt will present WNLs on a standardized balance test to improve balance and walking by 10/02/2020. 07/31/2020: Socks, KT and no shoes: EO and EC Romberg WNLs, Tandem EO B feet at least 1'; Tandem EC right foot behind 11 sec; left foot 33 sec at least and pt reports left foot 3/10 LTG Duration 8 weeks 2 [facility] Goal (LTG) Pt will gait train at least 1500 feet in 6 minutes with reports of no more than 2/10 left foot pain to prepare pt to return to walking several miles a day by 10/02/2020. 07/31/2020: Pt has 4/10 left foot pain before gait. She is wearing her athletic shoes today and PT KT before gait. Pt can tolerate 2 min 40 sec gait and gait trains 692 feet. Her pain reduces to 2/10 at start and then she has the burning pain and gait stopped. LTG Duration 8 weeks 1 Needle Punch Machine Operator Helper Goal (LTG) Pt will be able to walk 1 mile with reports of no more than 2/10 left foot pain to allow return to prior active lifestyle by 10/01/2020. 07/31/2020: Pt has not yet walked a mile for exercise LTG Duration 8 weeks Assessment Summary Assessment Worked mainly on manual therapy of B feet, ankles, and calves today, pt mostly displayed increased mobility/ laxity at end of treatment, still significant tone through right gastroc. Physical Therapy Plan Frequency and Duration Frequency of Treatment 2x/Week Duration of Treatment 8 weeks Plan of Care Start Date 07/31/20 Plan of Care End Date 10/02/20 Therapeutic Interventions Therapeutic Interventions Balance Training,Canalithic Repositioning,Coordination Training,Gait Training,Home Exercise Program,Joint Mobilizations,Manual Therapy, Neuromuscular Re-education, Patient/Caregiver Education, Self-Care/Home Management, Sensory Integration,Soft Tissue Mobilization,Taping, Therapeutic Activities, Therapeutic Exercises Modalities Cold Pack/Ice Massage,Electric Stimulation,Hot Packs, Ultrasound Other Referrals/Consults Referrals/Consults Recommended Functional medicine pharmacist to discuss inflammatory concerns, podiatry consult Next Visit Focus/Plan Next Note Type Treatment Note Next Visit Plan Review her preferred yoga routine with KT if helpful and adding in current PT exercises with the yoga routine. Consider Counterstrain, Progress exercises, strengthening in ankles, hips and knees, balance
--- NOTE | 2020-08-14 11:19 | PT.OTN ---
Current Diagnoses Pain in right foot (08/14/20) Pain in left foot (08/14/20) Physical Therapy Treatment Note PT-OP-A Visit Information Start: 06/26/20 09:32 Freq: Status: Active Protocol: Document 08/14/20 10:32 MB (Rec: 08/14/20 11:19 MB [id number]) Out-Patient Physical Therapy Visit Information Visit Information Visit Type Treatment Note Visit Start Time 10:32 Visit Stop Time 11:15 Total Visit Minutes 43 Visit Number 13 PT-OP-B Current Condition Start: 06/26/20 09:32 Freq: Status: Active Protocol: Document 06/26/20 10:32 MB (Rec: 06/26/20 10:53 MB [id number]) Current Condition History of Current Condition Onset Date March 2020 Current Complaints B foot pain, worse on the left with WB activity History of Current Condition At the end of March, pt was spending a lot of time remodeling a house and had increased B foot pain and greater on the left. She points to dorsal left foot at the cuboid area. Her right foot pain is better. Pt reports 3/10 right foot pain and 6/10 left foot pain. She is afraid to exercise d/t pain. 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 She is wearing arch support and that does relieve some of the pain. Pt states that she has a history of tendinits and calcifications form B shoulders and hips. She was dx with OA LB. She has had chronic inflammation and one MRI showed right trochanter bursa inflammation. Pt reports that she had a fall two weeks ago. She was overconfident using a hover board. She reached forward on her couch and the board moved out from behind her. She hit the back of her head. Her right shoulder flared up. She stretched, iced and rested and then was symptom-free. She has had a headache for the last couple of days. Pt reports that over the last few months, she has not been very hungry and she has been losing weight. It almost feels like symptoms but she knows she is not d/t IUD. She is nauseated. She has had increased stress. Pt works at [employer] and manages a lot with her job. She is working from home and is helping her two teenagers at home with school. The remodel of the house is still ongoing. Pt reports history of inflammatory response. Prior Treatments and Tests PT in the past for multi-joint pain, pt reports sensitivity to touch. X-ray left foot 05/12/2020: accessory ossicle lateral to proximal cuboid bone, small achilles tendon insertion spur at posterior calcaneus and scant spur at the plantar fascia Treatment Goals Patient/Caregiver Goals To get back to walking 3-4 miles a day. PT-OP-C Subjective Start: 06/26/20 09:32 Freq: Status: Active Protocol: Document 08/14/20 10:32 MB (Rec: 08/14/20 11:19 MB [id number]) OP-PT Subjective Patient Comments Patient Comments I feel good. I went for a walk yesterday. Pt states that she walked in her tennis shoes and KT. Pt has a podiatry appointment 08/28/2020. PT-OP-G Mobility & Gait Start: 06/26/20 09:32 Freq: Status: Active Protocol: Document 06/26/20 10:32 MB (Rec: 06/26/20 13:00 MB [id number]) OP Gait Assessment Gait Gait Assistance Required: Independent Distance (Feet) 100 Assistive Devices Assistive Device None Gait Deviations General Gait Pattern Within Normal Limits Factors Limiting Gait Function Factors Limiting Gait Function Pain Comments Gait Comments Pt tends to put more weight through B first ray and great toe for stepping, as if reaching through her toes. This is greater on the right. She has decreased Astrid angle B PT-OP-J Posture/Palpation/Skin Start: 06/26/20 09:32 Freq: Status: Active Protocol: Document 06/26/20 10:32 MB (Rec: 06/26/20 13:00 MB [id number]) Posture Evaluation Comments Posture Comments Standing posture: forward head , rounded shoulders, Dowager's hump, increased lumbar lordosis and anterior tilt pelvis, right shoulder elevation and right scapula elevation and protraction, right iliac crest higher than the left and pt does have spinal curvature. Decreased astrid angle B, increased knee extension, B thigh approximation, increased complaint clerk through B great toes, rearfoot and midfoot positions change as pt shifts stance, she tends to stand with the left foot back compared to the right when asked to stand with feet even. Skin Assessment Other Assessments Skin Assessment Comments Left ankle is mildly more edematous than the right in the dorsal part of the joint and foot, though she has sock loyola on both feet and ankles. PT-OP-K Range of Motion Start: 06/26/20 09:32 Freq: Status: Active Protocol: Document 06/26/20 10:32 MB (Rec: 06/26/20 13:00 MB [id number]) Ankle and Foot Goniometric Range of Motion Ankle and Foot ROM Limitations Comments B great toe extension reduced to only a few degrees off neutral. B DF close to neutral . Both great toe extension and DF slightly more limited on the right PT-OP-M Strength Start: 06/26/20 09:32 Freq: Status: Active Protocol: Document 06/26/20 10:32 MB (Rec: 06/26/20 13:00 MB [id number]) Hip Strength Hip Manual Muscle Testing Left Flexion (L2) 5 Normal Abduction 5 Normal Comments Pt supine Right Flexion (L2) 5 Normal Abduction 4 Good Comments Pt supine Knee Strength Knee Manual Muscle Testing Left Flexion (S2) 5 Normal Extension (L3) 5 Normal Comments Pt supine Right Flexion (S2) 5 Normal Extension (L3) 5 Normal Comments Pt supine Ankle/Foot Strength Ankle and Foot Manual Muscle Testing Left Dorsiflexion (L4) 5 Normal Inversion 5 Normal Eversion (S1) 5 Normal Comments Standing PF: pt can perform at least 20 reps with UE support against wall Right Dorsiflexion (L4) 5 Normal Inversion 5 Normal Eversion (S1) 5 Normal Comments Standing PF: pt can perform at least 20 reps with UE support against wall Toe Strength Toe Manual Muscle Testing Left Great Toe Extension 4 Good Right Great Toe Extension 3 Fair PT-OP-Q Treatments Start: 06/26/20 09:32 Freq: Status: Active Protocol: Document 08/14/20 10:32 MB (Rec: 08/14/20 11:19 MB [id number]) Manual Therapy Treatment Other Other Manual Treatments Pt agrees to Counterstrain to asssess and treat fascial tension and pt presents with fascial tension in the following systems: LF right greater than left, periosteal and DPR. PT treats stacks in the following systems: LF upper cervical TMJ and periosteal end-plate right femur, B fibula and B subtalar joints and scan improves after treatment as well as LE bone mobility. PT-OP-T Assessment and Plan Start: 06/26/20 09:32 Freq: Status: Active Protocol: Document 08/14/20 10:32 MB (Rec: 08/14/20 11:19 MB [id number]) Physical Therapy Assessment Rehab Potential Rehabilitation Potential Fair Evaluation Complexity Number of Personal Factors/Comorbidities 1-2 Number of Body Systems Impaired 1-2 Clinical Presentation at Evaluation Evolving Impairments Impairments Activity Tolerance,Balance, Pain,Posture,ROM,Soft Tissue Mobility,Strength Goals 4 Senior Care Goal (LTG) Pt will perform progressive HEP with I including flexibility, balance and strengthening exercises to decrease pain and improve functional strength by 2020. 07/31/2020: Pt is doing exercises as able d/t working on the house and she is done with this LTG Duration 8 weeks 3 Reinforcing Steel Erector Goal (LTG) Pt will present WNLs on a standardized balance test to improve balance and walking by 10/02/2020. 07/31/2020: Socks, KT and no shoes: EO and EC Romberg WNLs, Tandem EO B feet at least 1'; Tandem EC right foot behind 11 sec; left foot 33 sec at least and pt reports left foot 3/10 LTG Duration 8 weeks 2 Senior Care Goal (LTG) Pt will gait train at least 1500 feet in 6 minutes with reports of no more than 2/10 left foot pain to prepare pt to return to walking several miles a day by 10/02/2020. 07/31/2020: Pt has 4/10 left foot pain before gait. She is wearing her athletic shoes today and PT KT before gait. Pt can tolerate 2 min 40 sec gait and gait trains 692 feet. Her pain reduces to 2/10 at start and then she has the burning pain and gait stopped. LTG Duration 8 weeks 1 Senior Care Goal (LTG) Pt will be able to walk 1 mile with reports of no more than 2/10 left foot pain to allow return to prior active lifestyle by 10/01/2020. 07/31/2020: Pt has not yet walked a mile for exercise LTG Duration 8 weeks Assessment Summary Assessment Fascial Counterstrain treatment today improves ligamentum flavum and bone mobility. Will con't to benefit from manual work and prepare for ongoing progressive therapeutic exercise and strengthening. Physical Therapy Plan Frequency and Duration Frequency of Treatment 2x/Week Duration of Treatment 8 weeks Plan of Care Start Date 07/31/20 Plan of Care End Date 10/02/20 Therapeutic Interventions Therapeutic Interventions Balance Training,Canalithic Repositioning,Coordination Training,Gait Training,Home Exercise Program,Joint Mobilizations,Manual Therapy, Neuromuscular Re-education, Patient/Caregiver Education, Self-Care/Home Management, Sensory Integration,Soft Tissue Mobilization,Taping, Therapeutic Activities, Therapeutic Exercises Modalities Cold Pack/Ice Massage,Electric Stimulation,Hot Packs, Ultrasound Other Referrals/Consults Referrals/Consults Recommended Functional medicine pharmacist to discuss inflammatory concerns, podiatry consult Next Visit Focus/Plan Next Note Type Treatment Note Next Visit Plan Con't with plan: Review her preferred yoga routine with KT if helpful and adding in current PT exercises with the yoga routine. Consider Counterstrain, Progress exercises, strengthening in ankles, hips and knees, balance
--- NOTE | 2020-08-17 09:26 | PT.OTN ---
Current Diagnoses Pain in right foot (08/17/20) Pain in left foot (08/17/20) Physical Therapy Treatment Note PT-OP-A Visit Information Start: 06/26/20 09:32 Freq: Status: Active Protocol: Document 08/17/20 08:31 MB (Rec: 08/17/20 09:26 MB [id number]) Out-Patient Physical Therapy Visit Information Visit Information Visit Type Treatment Note Visit Start Time 08:31 Visit Stop Time 09:24 Total Visit Minutes 53 Visit Number 14 PT-OP-B Current Condition Start: 06/26/20 09:32 Freq: Status: Active Protocol: Document 06/26/20 10:32 MB (Rec: 06/26/20 10:53 MB [id number]) Current Condition History of Current Condition Onset Date March 2020 Current Complaints B foot pain, worse on the left with WB activity History of Current Condition At the end of March, pt was spending a lot of time remodeling a house and had increased B foot pain and greater on the left. She points to dorsal left foot at the cuboid area. Her right foot pain is better. Pt reports 3/10 right foot pain and 6/10 left foot pain. She is afraid to exercise d/t pain. 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 She is wearing arch support and that does relieve some of the pain. Pt states that she has a history of tendinits and calcifications form B shoulders and hips. She was dx with OA LB. She has had chronic inflammation and one MRI showed right trochanter bursa inflammation. Pt reports that she had a fall two weeks ago. She was overconfident using a hover board. She reached forward on her couch and the board moved out from behind her. She hit the back of her head. Her right shoulder flared up. She stretched, iced and rested and then was symptom-free. She has had a headache for the last couple of days. Pt reports that over the last few months, she has not been very hungry and she has been losing weight. It almost feels like symptoms but she knows she is not d/t IUD. She is nauseated. She has had increased stress. Pt works at [employer] and manages a lot with her job. She is working from home and is helping her two teenagers at home with school. The remodel of the house is still ongoing. Pt reports history of inflammatory response. Prior Treatments and Tests PT in the past for multi-joint pain, pt reports sensitivity to touch. X-ray left foot 05/12/2020: accessory ossicle lateral to proximal cuboid bone, small achilles tendon insertion spur at posterior calcaneus and scant spur at the plantar fascia Treatment Goals Patient/Caregiver Goals To get back to walking 3-4 miles a day. PT-OP-C Subjective Start: 06/26/20 09:32 Freq: Status: Active Protocol: Document 08/17/20 08:31 MB (Rec: 08/17/20 09:26 MB [id number]) OP-PT Subjective Patient Comments Patient Comments I'm doing really good. Pt states that she is noticing a lot of improvement. PT-OP-G Mobility & Gait Start: 06/26/20 09:32 Freq: Status: Active Protocol: Document 06/26/20 10:32 MB (Rec: 06/26/20 13:00 MB [id number]) OP Gait Assessment Gait Gait Assistance Required: Independent Distance (Feet) 100 Assistive Devices Assistive Device None Gait Deviations General Gait Pattern Within Normal Limits Factors Limiting Gait Function Factors Limiting Gait Function Pain Comments Gait Comments Pt tends to put more weight through B first ray and great toe for stepping, as if reaching through her toes. This is greater on the right. She has decreased Astrid angle B PT-OP-J Posture/Palpation/Skin Start: 06/26/20 09:32 Freq: Status: Active Protocol: Document 06/26/20 10:32 MB (Rec: 06/26/20 13:00 MB [id number]) Posture Evaluation Comments Posture Comments Standing posture: forward head , rounded shoulders, Dowager's hump, increased lumbar lordosis and anterior tilt pelvis, right shoulder elevation and right scapula elevation and protraction, right iliac crest higher than the left and pt does have spinal curvature. Decreased astrid angle B, increased knee extension, B thigh approximation, increased pcas through B great toes, rearfoot and midfoot positions change as pt shifts stance, she tends to stand with the left foot back compared to the right when asked to stand with feet even. Skin Assessment Other Assessments Skin Assessment Comments Left ankle is mildly more edematous than the right in the dorsal part of the joint and foot, though she has sock loyola on both feet and ankles. PT-OP-K Range of Motion Start: 06/26/20 09:32 Freq: Status: Active Protocol: Document 06/26/20 10:32 MB (Rec: 06/26/20 13:00 MB [id number]) Ankle and Foot Goniometric Range of Motion Ankle and Foot ROM Limitations Comments B great toe extension reduced to only a few degrees off neutral. B DF close to neutral . Both great toe extension and DF slightly more limited on the right PT-OP-M Strength Start: 06/26/20 09:32 Freq: Status: Active Protocol: Document 06/26/20 10:32 MB (Rec: 06/26/20 13:00 MB [id number]) Hip Strength Hip Manual Muscle Testing Left Flexion (L2) 5 Normal Abduction 5 Normal Comments Pt supine Right Flexion (L2) 5 Normal Abduction 4 Good Comments Pt supine Knee Strength Knee Manual Muscle Testing Left Flexion (S2) 5 Normal Extension (L3) 5 Normal Comments Pt supine Right Flexion (S2) 5 Normal Extension (L3) 5 Normal Comments Pt supine Ankle/Foot Strength Ankle and Foot Manual Muscle Testing Left Dorsiflexion (L4) 5 Normal Inversion 5 Normal Eversion (S1) 5 Normal Comments Standing PF: pt can perform at least 20 reps with UE support against wall Right Dorsiflexion (L4) 5 Normal Inversion 5 Normal Eversion (S1) 5 Normal Comments Standing PF: pt can perform at least 20 reps with UE support against wall Toe Strength Toe Manual Muscle Testing Left Great Toe Extension 4 Good Right Great Toe Extension 3 Fair PT-OP-Q Treatments Start: 06/26/20 09:32 Freq: Status: Active Protocol: Document 08/17/20 08:31 MB (Rec: 08/17/20 09:26 MB [id number]) Therapeutic Exercises Supine Exercises Maurice stretch Side right Comments Several minutes, cues for abdominal drawing in first Abdominal drawing in Comments Practice before Maurice stretch and engage Manual Therapy Treatment Other Other Manual Treatments Pt agrees to Counterstrain to asssess and treat fascial tension and pt presents with fascial tension in the following systems: periosteal, lymphatic venous spinal flexion, greater on the left and PT treats stacks in these systems, cervical to thoracic spine [place] KT: I strip to relax left plantar fascia and B [place] strips around midfoot for support Self-Care/Home Management Treatment Education Other Education Retraining on how to KT without pulling tape too much, ed in progression of yoga exercises with taping donned, connection of bone and muscle fascial tension with other fascial systems PT-OP-T Assessment and Plan Start: 06/26/20 09:32 Freq: Status: Active Protocol: Document 08/17/20 08:31 MB (Rec: 08/17/20 09:26 MB [id number]) Physical Therapy Assessment Rehab Potential Rehabilitation Potential Fair Evaluation Complexity Number of Personal Factors/Comorbidities 1-2 Number of Body Systems Impaired 1-2 Clinical Presentation at Evaluation Evolving Impairments Impairments Activity Tolerance,Balance, Pain,Posture,ROM,Soft Tissue Mobility,Strength Goals 4 Detention Goal (LTG) Pt will perform progressive HEP with I including flexibility, balance and strengthening exercises to decrease pain and improve functional strength by 2020. 07/31/2020: Pt is doing exercises as able d/t working on the house and she is done with this LTG Duration 8 weeks 3 Finisher Screwdown Goal (LTG) Pt will present WNLs on a standardized balance test to improve balance and walking by 10/02/2020. 07/31/2020: Socks, KT and no shoes: EO and EC Romberg WNLs, Tandem EO B feet at least 1'; Tandem EC right foot behind 11 sec; left foot 33 sec at least and pt reports left foot 3/10 LTG Duration 8 weeks 2 Detention Goal (LTG) Pt will gait train at least 1500 feet in 6 minutes with reports of no more than 2/10 left foot pain to prepare pt to return to walking several miles a day by 10/02/2020. 07/31/2020: Pt has 4/10 left foot pain before gait. She is wearing her athletic shoes today and PT KT before gait. Pt can tolerate 2 min 40 sec gait and gait trains 692 feet. Her pain reduces to 2/10 at start and then she has the burning pain and gait stopped. LTG Duration 8 weeks 1 Finisher Screwdown Goal (LTG) Pt will be able to walk 1 mile with reports of no more than 2/10 left foot pain to allow return to prior active lifestyle by 10/01/2020. 07/31/2020: Pt has not yet walked a mile for exercise LTG Duration 8 weeks Assessment Summary Assessment Pt's left foot is moving much better with passive joint movement and palpating over the left cuboid area feels very similar to the right today and it has less swelling . Will con't to benefit from manual work and prepare for ongoing progressive therapeutic exercise and strengthening. Physical Therapy Plan Frequency and Duration Frequency of Treatment 2x/Week Duration of Treatment 8 weeks Plan of Care Start Date 07/31/20 Plan of Care End Date 10/02/20 Therapeutic Interventions Therapeutic Interventions Balance Training,Canalithic Repositioning,Coordination Training,Gait Training,Home Exercise Program,Joint Mobilizations,Manual Therapy, Neuromuscular Re-education, Patient/Caregiver Education, Self-Care/Home Management, Sensory Integration,Soft Tissue Mobilization,Taping, Therapeutic Activities, Therapeutic Exercises Modalities Cold Pack/Ice Massage,Electric Stimulation,Hot Packs, Ultrasound Other Referrals/Consults Referrals/Consults Recommended Functional medicine pharmacist to discuss inflammatory concerns, podiatry consult Next Visit Focus/Plan Next Note Type Treatment Note Next Visit Plan Con't with plan: Review her preferred yoga routine with KT if helpful and adding in current PT exercises with the yoga routine. Consider Counterstrain, Progress exercises, strengthening in ankles, hips and knees, balance
--- NOTE | 2020-08-21 15:17 | PT.OTN ---
Current Diagnoses Pain in right foot (08/21/20) Pain in left foot (08/21/20) Physical Therapy Treatment Note PT-OP-A Visit Information Start: 06/26/20 09:32 Freq: Status: Active Protocol: Document 08/21/20 10:31 MB (Rec: 08/21/20 11:20 MB [id number]) Out-Patient Physical Therapy Visit Information Visit Information Visit Type Treatment Note Visit Start Time 10:31 Visit Stop Time 11:21 Total Visit Minutes 50 Visit Number 15 PT-OP-B Current Condition Start: 06/26/20 09:32 Freq: Status: Active Protocol: Document 06/26/20 10:32 MB (Rec: 06/26/20 10:53 MB [id number]) Current Condition History of Current Condition Onset Date March 2020 Current Complaints B foot pain, worse on the left with WB activity History of Current Condition At the end of March, pt was spending a lot of time remodeling a house and had increased B foot pain and greater on the left. She points to dorsal left foot at the cuboid area. Her right foot pain is better. Pt reports 3/10 right foot pain and 6/10 left foot pain. She is afraid to exercise d/t pain. 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 She is wearing arch support and that does relieve some of the pain. Pt states that she has a history of tendinits and calcifications form B shoulders and hips. She was dx with OA LB. She has had chronic inflammation and one MRI showed right trochanter bursa inflammation. Pt reports that she had a fall two weeks ago. She was overconfident using a hover board. She reached forward on her couch and the board moved out from behind her. She hit the back of her head. Her right shoulder flared up. She stretched, iced and rested and then was symptom-free. She has had a headache for the last couple of days. Pt reports that over the last few months, she has not been very hungry and she has been losing weight. It almost feels like symptoms but she knows she is not d/t IUD. She is nauseated. She has had increased stress. Pt works at [employer] and manages a lot with her job. She is working from home and is helping her two teenagers at home with school. The remodel of the house is still ongoing. Pt reports history of inflammatory response. Prior Treatments and Tests PT in the past for multi-joint pain, pt reports sensitivity to touch. X-ray left foot 05/12/2020: accessory ossicle lateral to proximal cuboid bone, small achilles tendon insertion spur at posterior calcaneus and scant spur at the plantar fascia Treatment Goals Patient/Caregiver Goals To get back to walking 3-4 miles a day. PT-OP-C Subjective Start: 06/26/20 09:32 Freq: Status: Active Protocol: Document 08/21/20 10:31 MB (Rec: 08/21/20 11:20 MB [id number]) OP-PT Subjective Patient Comments Patient Comments I went for a walk and I also worked at the house in my boots and my foot is a little store but I'm doing really good. Pt would like to go through yoga routine while taped today. PT-OP-G Mobility & Gait Start: 06/26/20 09:32 Freq: Status: Active Protocol: Document 06/26/20 10:32 MB (Rec: 06/26/20 13:00 MB [id number]) OP Gait Assessment Gait Gait Assistance Required: Independent Distance (Feet) 100 Assistive Devices Assistive Device None Gait Deviations General Gait Pattern Within Normal Limits Factors Limiting Gait Function Factors Limiting Gait Function Pain Comments Gait Comments Pt tends to put more weight through B first ray and great toe for stepping, as if reaching through her toes. This is greater on the right. She has decreased Astrid angle B PT-OP-J Posture/Palpation/Skin Start: 06/26/20 09:32 Freq: Status: Active Protocol: Document 06/26/20 10:32 MB (Rec: 06/26/20 13:00 MB [id number]) Posture Evaluation Comments Posture Comments Standing posture: forward head , rounded shoulders, Dowager's hump, increased lumbar lordosis and anterior tilt pelvis, right shoulder elevation and right scapula elevation and protraction, right iliac crest higher than the left and pt does have spinal curvature. Decreased astrid angle B, increased knee extension, B thigh approximation, increased canvas marker through B great toes, rearfoot and midfoot positions change as pt shifts stance, she tends to stand with the left foot back compared to the right when asked to stand with feet even. Skin Assessment Other Assessments Skin Assessment Comments Left ankle is mildly more edematous than the right in the dorsal part of the joint and foot, though she has sock loyola on both feet and ankles. PT-OP-K Range of Motion Start: 06/26/20 09:32 Freq: Status: Active Protocol: Document 06/26/20 10:32 MB (Rec: 06/26/20 13:00 MB [id number]) Ankle and Foot Goniometric Range of Motion Ankle and Foot ROM Limitations Comments B great toe extension reduced to only a few degrees off neutral. B DF close to neutral . Both great toe extension and DF slightly more limited on the right PT-OP-M Strength Start: 06/26/20 09:32 Freq: Status: Active Protocol: Document 06/26/20 10:32 MB (Rec: 06/26/20 13:00 MB [id number]) Hip Strength Hip Manual Muscle Testing Left Flexion (L2) 5 Normal Abduction 5 Normal Comments Pt supine Right Flexion (L2) 5 Normal Abduction 4 Good Comments Pt supine Knee Strength Knee Manual Muscle Testing Left Flexion (S2) 5 Normal Extension (L3) 5 Normal Comments Pt supine Right Flexion (S2) 5 Normal Extension (L3) 5 Normal Comments Pt supine Ankle/Foot Strength Ankle and Foot Manual Muscle Testing Left Dorsiflexion (L4) 5 Normal Inversion 5 Normal Eversion (S1) 5 Normal Comments Standing PF: pt can perform at least 20 reps with UE support against wall Right Dorsiflexion (L4) 5 Normal Inversion 5 Normal Eversion (S1) 5 Normal Comments Standing PF: pt can perform at least 20 reps with UE support against wall Toe Strength Toe Manual Muscle Testing Left Great Toe Extension 4 Good Right Great Toe Extension 3 Fair PT-OP-Q Treatments Start: 06/26/20 09:32 Freq: Status: Active Protocol: Document 08/21/20 10:31 MB (Rec: 08/21/20 11:20 MB [id number]) Therapeutic Exercises Other Exercises Yoga exercises that pt uses on keren Other Exercise Name Black KT today Comments Not enough room here to write out exercises, see assessment Manual Therapy Treatment Other Other Manual Treatments Black KT--I strip under left plantar fascia and then B c strips over feet PT-OP-T Assessment and Plan Start: 06/26/20 09:32 Freq: Status: Active Protocol: Document 08/21/20 10:31 MB (Rec: 08/21/20 11:20 MB [id number]) Physical Therapy Assessment Rehab Potential Rehabilitation Potential Fair Evaluation Complexity Number of Personal Factors/Comorbidities 1-2 Number of Body Systems Impaired 1-2 Clinical Presentation at Evaluation Evolving Impairments Impairments Activity Tolerance,Balance, Pain,Posture,ROM,Soft Tissue Mobility,Strength Goals 4 Entry Level Software Engineer Goal (LTG) Pt will perform progressive HEP with I including flexibility, balance and strengthening exercises to decrease pain and improve functional strength by 2020. 07/31/2020: Pt is doing exercises as able d/t working on the house and she is done with this LTG Duration 8 weeks 3 Entry Level Software Engineer Goal (LTG) Pt will present WNLs on a standardized balance test to improve balance and walking by 10/02/2020. 07/31/2020: Socks, KT and no shoes: EO and EC Romberg WNLs, Tandem EO B feet at least 1'; Tandem EC right foot behind 11 sec; left foot 33 sec at least and pt reports left foot 3/10 LTG Duration 8 weeks 2 Entry Level Software Engineer Goal (LTG) Pt will gait train at least 1500 feet in 6 minutes with reports of no more than 2/10 left foot pain to prepare pt to return to walking several miles a day by 10/02/2020. 07/31/2020: Pt has 4/10 left foot pain before gait. She is wearing her athletic shoes today and PT KT before gait. Pt can tolerate 2 min 40 sec gait and gait trains 692 feet. Her pain reduces to 2/10 at start and then she has the burning pain and gait stopped. LTG Duration 8 weeks 1 Snf Goal (LTG) Pt will be able to walk 1 mile with reports of no more than 2/10 left foot pain to allow return to prior active lifestyle by 10/01/2020. 07/31/2020: Pt has not yet walked a mile for exercise LTG Duration 8 weeks Assessment Summary Assessment Pt performs yoga routing per keren with PT assessment today and revision of some exercises . She wears black KT on both feet for exercises and responds well. Revised exercises are as following and this is the routine she will follow at home in this order with 30 sec hold all exercises : child's pose, plank pose, downward dog using 1/2 foam roller, standing forward bend, standing 1/2 forward bend, standing yoga seal, chair pose , chair twist left, chair twist right, chair pose, upward tree pose dynamic, upward tree pose, happy baby stretch, bridge pose, child's pose, downward dog with 1/2 foam roller, golfer's lift foam roller, left, single leg downward dog left, golfer's lift foam roller, right, single downward dog right, warrior 1 pose left, warrior 2 pose left, golfer's lift foam roller, left, warrior 1 pose right, warrior 2 pose right, golfer's lift foam roller, right, downward dog dynamic, plank pose, bow pose, child's pose, happy baby pose. Pt will con't to benefit from manual work and prepare for ongoing progressive therapeutic exercise and strengthening. Physical Therapy Plan Frequency and Duration Frequency of Treatment 2x/Week Duration of Treatment 8 weeks Plan of Care Start Date 07/31/20 Plan of Care End Date 10/02/20 Therapeutic Interventions Therapeutic Interventions Balance Training,Canalithic Repositioning,Coordination Training,Gait Training,Home Exercise Program,Joint Mobilizations,Manual Therapy, Neuromuscular Re-education, Patient/Caregiver Education, Self-Care/Home Management, Sensory Integration,Soft Tissue Mobilization,Taping, Therapeutic Activities, Therapeutic Exercises Modalities Cold Pack/Ice Massage,Electric Stimulation,Hot Packs, Ultrasound Other Referrals/Consults Referrals/Consults Recommended Functional medicine pharmacist to discuss inflammatory concerns, podiatry consult Next Visit Focus/Plan Next Note Type Treatment Note Next Visit Plan Progress exercises, strengthening in ankles, hips and knees, balance
--- NOTE | 2020-08-24 10:57 | PT-OP ANOTE ---
Pt no shows appointment. PT calls pt and receives voice mail and mailbox is full.
--- NOTE | 2020-08-28 15:21 | PT.OTN ---
Current Diagnoses Pain in right foot (08/28/20) Pain in left foot (08/28/20) Physical Therapy Treatment Note PT-OP-A Visit Information Start: 06/26/20 09:32 Freq: Status: Active Protocol: Document 08/28/20 14:16 MB (Rec: 08/28/20 15:02 MB [id number]) Out-Patient Physical Therapy Visit Information Visit Information Visit Type Treatment Note Visit Start Time 14:16 Visit Stop Time 15:00 Total Visit Minutes 44 Visit Number 16 PT-OP-B Current Condition Start: 06/26/20 09:32 Freq: Status: Active Protocol: Document 06/26/20 10:32 MB (Rec: 06/26/20 10:53 MB [id number]) Current Condition History of Current Condition Onset Date March 2020 Current Complaints B foot pain, worse on the left with WB activity History of Current Condition At the end of March, pt was spending a lot of time remodeling a house and had increased B foot pain and greater on the left. She points to dorsal left foot at the cuboid area. Her right foot pain is better. Pt reports 3/10 right foot pain and 6/10 left foot pain. She is afraid to exercise d/t pain. 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 She is wearing arch support and that does relieve some of the pain. Pt states that she has a history of tendinits and calcifications form B shoulders and hips. She was dx with OA LB. She has had chronic inflammation and one MRI showed right trochanter bursa inflammation. Pt reports that she had a fall two weeks ago. She was overconfident using a hover board. She reached forward on her couch and the board moved out from behind her. She hit the back of her head. Her right shoulder flared up. She stretched, iced and rested and then was symptom-free. She has had a headache for the last couple of days. Pt reports that over the last few months, she has not been very hungry and she has been losing weight. It almost feels like symptoms but she knows she is not d/t IUD. She is nauseated. She has had increased stress. Pt works at [employer] and manages a lot with her job. She is working from home and is helping her two teenagers at home with school. The remodel of the house is still ongoing. Pt reports history of inflammatory response. Prior Treatments and Tests PT in the past for multi-joint pain, pt reports sensitivity to touch. X-ray left foot 05/12/2020: accessory ossicle lateral to proximal cuboid bone, small achilles tendon insertion spur at posterior calcaneus and scant spur at the plantar fascia Treatment Goals Patient/Caregiver Goals To get back to walking 3-4 miles a day. PT-OP-C Subjective Start: 06/26/20 09:32 Freq: Status: Active Protocol: Document 08/28/20 14:16 MB (Rec: 08/28/20 15:02 MB [id number]) OP-PT Subjective Patient Comments Patient Comments I walked on Friday and my calves are really sore. Pt wore her Nikes and went on a ferry ride to [place]. Pt saw rn new grad this morning and she got x-rays on both feet and states that she might not have the spurs any more. She was told she might have a cyst on the top of the foot and the doctor would like for her to have a MRI. She might get an orthotic. She was told she might have a tendon that is pushing out on the side of her left foot. Pt has not been performing yoga routine. Patient Reported Progress Improving PT-OP-G Mobility & Gait Start: 06/26/20 09:32 Freq: Status: Active Protocol: Document 06/26/20 10:32 MB (Rec: 06/26/20 13:00 MB [id number]) OP Gait Assessment Gait Gait Assistance Required: Independent Distance (Feet) 100 Assistive Devices Assistive Device None Gait Deviations General Gait Pattern Within Normal Limits Factors Limiting Gait Function Factors Limiting Gait Function Pain Comments Gait Comments Pt tends to put more weight through B first ray and great toe for stepping, as if reaching through her toes. This is greater on the right. She has decreased Astrid angle B PT-OP-J Posture/Palpation/Skin Start: 06/26/20 09:32 Freq: Status: Active Protocol: Document 06/26/20 10:32 MB (Rec: 06/26/20 13:00 MB [id number]) Posture Evaluation Comments Posture Comments Standing posture: forward head , rounded shoulders, Dowager's hump, increased lumbar lordosis and anterior tilt pelvis, right shoulder elevation and right scapula elevation and protraction, right iliac crest higher than the left and pt does have spinal curvature. Decreased astrid angle B, increased knee extension, B thigh approximation, increased survey operations director through B great toes, rearfoot and midfoot positions change as pt shifts stance, she tends to stand with the left foot back compared to the right when asked to stand with feet even. Skin Assessment Other Assessments Skin Assessment Comments Left ankle is mildly more edematous than the right in the dorsal part of the joint and foot, though she has sock loyola on both feet and ankles. PT-OP-K Range of Motion Start: 06/26/20 09:32 Freq: Status: Active Protocol: Document 06/26/20 10:32 MB (Rec: 06/26/20 13:00 MB [id number]) Ankle and Foot Goniometric Range of Motion Ankle and Foot ROM Limitations Comments B great toe extension reduced to only a few degrees off neutral. B DF close to neutral . Both great toe extension and DF slightly more limited on the right PT-OP-M Strength Start: 06/26/20 09:32 Freq: Status: Active Protocol: Document 06/26/20 10:32 MB (Rec: 06/26/20 13:00 MB [id number]) Hip Strength Hip Manual Muscle Testing Left Flexion (L2) 5 Normal Abduction 5 Normal Comments Pt supine Right Flexion (L2) 5 Normal Abduction 4 Good Comments Pt supine Knee Strength Knee Manual Muscle Testing Left Flexion (S2) 5 Normal Extension (L3) 5 Normal Comments Pt supine Right Flexion (S2) 5 Normal Extension (L3) 5 Normal Comments Pt supine Ankle/Foot Strength Ankle and Foot Manual Muscle Testing Left Dorsiflexion (L4) 5 Normal Inversion 5 Normal Eversion (S1) 5 Normal Comments Standing PF: pt can perform at least 20 reps with UE support against wall Right Dorsiflexion (L4) 5 Normal Inversion 5 Normal Eversion (S1) 5 Normal Comments Standing PF: pt can perform at least 20 reps with UE support against wall Toe Strength Toe Manual Muscle Testing Left Great Toe Extension 4 Good Right Great Toe Extension 3 Fair PT-OP-Q Treatments Start: 06/26/20 09:32 Freq: Status: Active Protocol: Document 08/28/20 14:16 MB (Rec: 08/28/20 15:21 MB [id number]) Manual Therapy Treatment Other Other Manual Treatments Soft tissue release and STM B PFs at soleus and gastroc attachment distally and up the muscle bellies, STM left greater than right plantar fascia, gentle B feet digit mobs grade II Self-Care/Home Management Treatment Education Other Education Importance of getting back to yoga routine and try for 4 times before next PT visit in order to proceed with strengthening exercises PT-OP-T Assessment and Plan Start: 06/26/20 09:32 Freq: Status: Active Protocol: Document 08/28/20 14:16 MB (Rec: 08/28/20 15:21 MB [id number]) Physical Therapy Assessment Rehab Potential Rehabilitation Potential Fair Evaluation Complexity Number of Personal Factors/Comorbidities 1-2 Number of Body Systems Impaired 1-2 Clinical Presentation at Evaluation Evolving Impairments Impairments Activity Tolerance,Balance, Pain,Posture,ROM,Soft Tissue Mobility,Strength Goals 4 Fci Goal (LTG) Pt will perform progressive HEP with I including flexibility, balance and strengthening exercises to decrease pain and improve functional strength by 2020. 07/31/2020: Pt is doing exercises as able d/t working on the house and she is done with this LTG Duration 8 weeks 3 [facility] Goal (LTG) Pt will present WNLs on a standardized balance test to improve balance and walking by 10/02/2020. 07/31/2020: Socks, KT and no shoes: EO and EC Romberg WNLs, Tandem EO B feet at least 1'; Tandem EC right foot behind 11 sec; left foot 33 sec at least and pt reports left foot 3/10 LTG Duration 8 weeks 2 Lead Nurse Goal (LTG) Pt will gait train at least 1500 feet in 6 minutes with reports of no more than 2/10 left foot pain to prepare pt to return to walking several miles a day by 10/02/2020. 07/31/2020: Pt has 4/10 left foot pain before gait. She is wearing her athletic shoes today and PT KT before gait. Pt can tolerate 2 min 40 sec gait and gait trains 692 feet. Her pain reduces to 2/10 at start and then she has the burning pain and gait stopped. LTG Duration 8 weeks 1 [facility] Goal (LTG) Pt will be able to walk 1 mile with reports of no more than 2/10 left foot pain to allow return to prior active lifestyle by 10/01/2020. 07/31/2020: Pt has not yet walked a mile for exercise LTG Duration 8 weeks Assessment Summary Assessment Encouraged pt to get back to her yoga routine consistently so that PT can advance strengthening exercises with her and pt verbalizes understanding. Manual work today improves B PF and left plantar fascia tension and pt reports of calf tightness and painfulness to stretching. Physical Therapy Plan Frequency and Duration Frequency of Treatment 2x/Week Duration of Treatment 8 weeks Plan of Care Start Date 07/31/20 Plan of Care End Date 10/02/20 Therapeutic Interventions Therapeutic Interventions Balance Training,Canalithic Repositioning,Coordination Training,Gait Training,Home Exercise Program,Joint Mobilizations,Manual Therapy, Neuromuscular Re-education, Patient/Caregiver Education, Self-Care/Home Management, Sensory Integration,Soft Tissue Mobilization,Taping, Therapeutic Activities, Therapeutic Exercises Modalities Cold Pack/Ice Massage,Electric Stimulation,Hot Packs, Ultrasound Other Referrals/Consults Referrals/Consults Recommended Functional medicine pharmacist to discuss inflammatory concerns Next Visit Focus/Plan Next Note Type Treatment Note Next Visit Plan Progress exercises, strengthening in ankles, hips and knees, balance
--- NOTE | 2020-09-08 14:34 | PT.OTN ---
Current Diagnoses Pain in right foot (09/08/20) Pain in left foot (09/08/20) Physical Therapy Treatment Note PT-OP-A Visit Information Start: 06/26/20 09:32 Freq: Status: Active Protocol: Document 09/08/20 13:47 MB (Rec: 09/08/20 14:30 MB [id number]) Out-Patient Physical Therapy Visit Information Visit Information Visit Type Treatment Note Visit Start Time 13:47 Visit Stop Time 14:15 Total Visit Minutes 43 Visit Number 17 PT-OP-B Current Condition Start: 06/26/20 09:32 Freq: Status: Active Protocol: Document 06/26/20 10:32 MB (Rec: 06/26/20 10:53 MB [id number]) Current Condition History of Current Condition Onset Date March 2020 Current Complaints B foot pain, worse on the left with WB activity History of Current Condition At the end of March, pt was spending a lot of time remodeling a house and had increased B foot pain and greater on the left. She points to dorsal left foot at the cuboid area. Her right foot pain is better. Pt reports 3/10 right foot pain and 6/10 left foot pain. She is afraid to exercise d/t pain. 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 She is wearing arch support and that does relieve some of the pain. Pt states that she has a history of tendinits and calcifications form B shoulders and hips. She was dx with OA LB. She has had chronic inflammation and one MRI showed right trochanter bursa inflammation. Pt reports that she had a fall two weeks ago. She was overconfident using a hover board. She reached forward on her couch and the board moved out from behind her. She hit the back of her head. Her right shoulder flared up. She stretched, iced and rested and then was symptom-free. She has had a headache for the last couple of days. Pt reports that over the last few months, she has not been very hungry and she has been losing weight. It almost feels like symptoms but she knows she is not d/t IUD. She is nauseated. She has had increased stress. Pt works at [employer] and manages a lot with her job. She is working from home and is helping her two teenagers at home with school. The remodel of the house is still ongoing. Pt reports history of inflammatory response. Prior Treatments and Tests PT in the past for multi-joint pain, pt reports sensitivity to touch. X-ray left foot 05/12/2020: accessory ossicle lateral to proximal cuboid bone, small achilles tendon insertion spur at posterior calcaneus and scant spur at the plantar fascia Treatment Goals Patient/Caregiver Goals To get back to walking 3-4 miles a day. PT-OP-C Subjective Start: 06/26/20 09:32 Freq: Status: Active Protocol: Document 09/08/20 13:47 MB (Rec: 09/08/20 14:30 MB [id number]) OP-PT Subjective Patient Comments Patient Comments I had a childhood friend pass away on Friday. Pt reports increased grief and that she has not felt like doing her yoga routine. She went for a walk. PT-OP-G Mobility & Gait Start: 06/26/20 09:32 Freq: Status: Active Protocol: Document 06/26/20 10:32 MB (Rec: 06/26/20 13:00 MB [id number]) OP Gait Assessment Gait Gait Assistance Required: Independent Distance (Feet) 100 Assistive Devices Assistive Device None Gait Deviations General Gait Pattern Within Normal Limits Factors Limiting Gait Function Factors Limiting Gait Function Pain Comments Gait Comments Pt tends to put more weight through B first ray and great toe for stepping, as if reaching through her toes. This is greater on the right. She has decreased Astrid angle B PT-OP-J Posture/Palpation/Skin Start: 06/26/20 09:32 Freq: Status: Active Protocol: Document 06/26/20 10:32 MB (Rec: 06/26/20 13:00 MB [id number]) Posture Evaluation Comments Posture Comments Standing posture: forward head , rounded shoulders, Dowager's hump, increased lumbar lordosis and anterior tilt pelvis, right shoulder elevation and right scapula elevation and protraction, right iliac crest higher than the left and pt does have spinal curvature. Decreased astrid angle B, increased knee extension, B thigh approximation, increased boat builder through B great toes, rearfoot and midfoot positions change as pt shifts stance, she tends to stand with the left foot back compared to the right when asked to stand with feet even. Skin Assessment Other Assessments Skin Assessment Comments Left ankle is mildly more edematous than the right in the dorsal part of the joint and foot, though she has sock loyola on both feet and ankles. PT-OP-K Range of Motion Start: 06/26/20 09:32 Freq: Status: Active Protocol: Document 06/26/20 10:32 MB (Rec: 06/26/20 13:00 MB [id number]) Ankle and Foot Goniometric Range of Motion Ankle and Foot ROM Limitations Comments B great toe extension reduced to only a few degrees off neutral. B DF close to neutral . Both great toe extension and DF slightly more limited on the right PT-OP-M Strength Start: 06/26/20 09:32 Freq: Status: Active Protocol: Document 06/26/20 10:32 MB (Rec: 06/26/20 13:00 MB [id number]) Hip Strength Hip Manual Muscle Testing Left Flexion (L2) 5 Normal Abduction 5 Normal Comments Pt supine Right Flexion (L2) 5 Normal Abduction 4 Good Comments Pt supine Knee Strength Knee Manual Muscle Testing Left Flexion (S2) 5 Normal Extension (L3) 5 Normal Comments Pt supine Right Flexion (S2) 5 Normal Extension (L3) 5 Normal Comments Pt supine Ankle/Foot Strength Ankle and Foot Manual Muscle Testing Left Dorsiflexion (L4) 5 Normal Inversion 5 Normal Eversion (S1) 5 Normal Comments Standing PF: pt can perform at least 20 reps with UE support against wall Right Dorsiflexion (L4) 5 Normal Inversion 5 Normal Eversion (S1) 5 Normal Comments Standing PF: pt can perform at least 20 reps with UE support against wall Toe Strength Toe Manual Muscle Testing Left Great Toe Extension 4 Good Right Great Toe Extension 3 Fair PT-OP-Q Treatments Start: 06/26/20 09:32 Freq: Status: Active Protocol: Document 09/08/20 13:47 MB (Rec: 09/08/20 14:30 MB [id number]) Manual Therapy Treatment Other Other Manual Treatments STM B PFs at soleus and gastroc attachment distally and up the muscle bellies, STM left greater than right plantar fascia, gentle B feet digit mobs grade II PT-OP-T Assessment and Plan Start: 06/26/20 09:32 Freq: Status: Active Protocol: Document 09/08/20 13:47 MB (Rec: 09/08/20 14:30 MB [id number]) Physical Therapy Assessment Rehab Potential Rehabilitation Potential Fair Evaluation Complexity Number of Personal Factors/Comorbidities 1-2 Number of Body Systems Impaired 1-2 Clinical Presentation at Evaluation Evolving Impairments Impairments Activity Tolerance,Balance, Pain,Posture,ROM,Soft Tissue Mobility,Strength Goals 4 Senior Living Goal (LTG) Pt will perform progressive HEP with I including flexibility, balance and strengthening exercises to decrease pain and improve functional strength by 2020. 07/31/2020: Pt is doing exercises as able d/t working on the house and she is done with this LTG Duration 8 weeks 3 Senior Living Goal (LTG) Pt will present WNLs on a standardized balance test to improve balance and walking by 10/02/2020. 07/31/2020: Socks, KT and no shoes: EO and EC Romberg WNLs, Tandem EO B feet at least 1'; Tandem EC right foot behind 11 sec; left foot 33 sec at least and pt reports left foot 3/10 LTG Duration 8 weeks 2 Developer Automatic Goal (LTG) Pt will gait train at least 1500 feet in 6 minutes with reports of no more than 2/10 left foot pain to prepare pt to return to walking several miles a day by 10/02/2020. 07/31/2020: Pt has 4/10 left foot pain before gait. She is wearing her athletic shoes today and PT KT before gait. Pt can tolerate 2 min 40 sec gait and gait trains 692 feet. Her pain reduces to 2/10 at start and then she has the burning pain and gait stopped. LTG Duration 8 weeks 1 Senior Living Goal (LTG) Pt will be able to walk 1 mile with reports of no more than 2/10 left foot pain to allow return to prior active lifestyle by 10/01/2020. 07/31/2020: Pt has not yet walked a mile for exercise LTG Duration 8 weeks Assessment Summary Assessment Manual work today and will initiate strengthening for hips and knees next treatment date. Physical Therapy Plan Frequency and Duration Frequency of Treatment 2x/Week Duration of Treatment 8 weeks Plan of Care Start Date 07/31/20 Plan of Care End Date 10/02/20 Therapeutic Interventions Therapeutic Interventions Balance Training,Canalithic Repositioning,Coordination Training,Gait Training,Home Exercise Program,Joint Mobilizations,Manual Therapy, Neuromuscular Re-education, Patient/Caregiver Education, Self-Care/Home Management, Sensory Integration,Soft Tissue Mobilization,Taping, Therapeutic Activities, Therapeutic Exercises Modalities Cold Pack/Ice Massage,Electric Stimulation,Hot Packs, Ultrasound Other Referrals/Consults Referrals/Consults Recommended Functional medicine pharmacist to discuss inflammatory concerns Next Visit Focus/Plan Next Note Type Treatment Note Next Visit Plan LAQ in sitting with band, backwards and side walking with band
--- NOTE | 2020-09-22 09:47 | PT.OTN ---
Current Diagnoses Pain in right foot (09/22/20) Pain in left foot (09/22/20) Physical Therapy Treatment Note PT-OP-A Visit Information Start: 06/26/20 09:32 Freq: Status: Active Protocol: Document 09/22/20 09:05 MB (Rec: 09/22/20 09:35 MB [id number]) Out-Patient Physical Therapy Visit Information Visit Information Visit Type Treatment Note Visit Start Time 09:05 Visit Stop Time 09:45 Total Visit Minutes 40 Visit Number 18 PT-OP-B Current Condition Start: 06/26/20 09:32 Freq: Status: Active Protocol: Document 06/26/20 10:32 MB (Rec: 06/26/20 10:53 MB [id number]) Current Condition History of Current Condition Onset Date March 2020 Current Complaints B foot pain, worse on the left with WB activity History of Current Condition At the end of March, pt was spending a lot of time remodeling a house and had increased B foot pain and greater on the left. She points to dorsal left foot at the cuboid area. Her right foot pain is better. Pt reports 3/10 right foot pain and 6/10 left foot pain. She is afraid to exercise d/t pain. 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 She is wearing arch support and that does relieve some of the pain. Pt states that she has a history of tendinits and calcifications form B shoulders and hips. She was dx with OA LB. She has had chronic inflammation and one MRI showed right trochanter bursa inflammation. Pt reports that she had a fall two weeks ago. She was overconfident using a hover board. She reached forward on her couch and the board moved out from behind her. She hit the back of her head. Her right shoulder flared up. She stretched, iced and rested and then was symptom-free. She has had a headache for the last couple of days. Pt reports that over the last few months, she has not been very hungry and she has been losing weight. It almost feels like symptoms but she knows she is not d/t IUD. She is nauseated. She has had increased stress. Pt works at [employer] and manages a lot with her job. She is working from home and is helping her two teenagers at home with school. The remodel of the house is still ongoing. Pt reports history of inflammatory response. Prior Treatments and Tests PT in the past for multi-joint pain, pt reports sensitivity to touch. X-ray left foot 05/12/2020: accessory ossicle lateral to proximal cuboid bone, small achilles tendon insertion spur at posterior calcaneus and scant spur at the plantar fascia Treatment Goals Patient/Caregiver Goals To get back to walking 3-4 miles a day. PT-OP-C Subjective Start: 06/26/20 09:32 Freq: Status: Active Protocol: Document 09/22/20 09:05 MB (Rec: 09/22/20 09:35 MB [id number]) OP-PT Subjective Patient Comments Patient Comments I'm great! There is no news about the foot MRI or orthotics PT-OP-G Mobility & Gait Start: 06/26/20 09:32 Freq: Status: Active Protocol: Document 06/26/20 10:32 MB (Rec: 06/26/20 13:00 MB [id number]) OP Gait Assessment Gait Gait Assistance Required: Independent Distance (Feet) 100 Assistive Devices Assistive Device None Gait Deviations General Gait Pattern Within Normal Limits Factors Limiting Gait Function Factors Limiting Gait Function Pain Comments Gait Comments Pt tends to put more weight through B first ray and great toe for stepping, as if reaching through her toes. This is greater on the right. She has decreased Astrid angle B PT-OP-J Posture/Palpation/Skin Start: 06/26/20 09:32 Freq: Status: Active Protocol: Document 06/26/20 10:32 MB (Rec: 06/26/20 13:00 MB [id number]) Posture Evaluation Comments Posture Comments Standing posture: forward head , rounded shoulders, Dowager's hump, increased lumbar lordosis and anterior tilt pelvis, right shoulder elevation and right scapula elevation and protraction, right iliac crest higher than the left and pt does have spinal curvature. Decreased astrid angle B, increased knee extension, B thigh approximation, increased advertising copywriter through B great toes, rearfoot and midfoot positions change as pt shifts stance, she tends to stand with the left foot back compared to the right when asked to stand with feet even. Skin Assessment Other Assessments Skin Assessment Comments Left ankle is mildly more edematous than the right in the dorsal part of the joint and foot, though she has sock loyola on both feet and ankles. PT-OP-K Range of Motion Start: 06/26/20 09:32 Freq: Status: Active Protocol: Document 06/26/20 10:32 MB (Rec: 06/26/20 13:00 MB [id number]) Ankle and Foot Goniometric Range of Motion Ankle and Foot ROM Limitations Comments B great toe extension reduced to only a few degrees off neutral. B DF close to neutral . Both great toe extension and DF slightly more limited on the right PT-OP-M Strength Start: 06/26/20 09:32 Freq: Status: Active Protocol: Document 06/26/20 10:32 MB (Rec: 06/26/20 13:00 MB [id number]) Hip Strength Hip Manual Muscle Testing Left Flexion (L2) 5 Normal Abduction 5 Normal Comments Pt supine Right Flexion (L2) 5 Normal Abduction 4 Good Comments Pt supine Knee Strength Knee Manual Muscle Testing Left Flexion (S2) 5 Normal Extension (L3) 5 Normal Comments Pt supine Right Flexion (S2) 5 Normal Extension (L3) 5 Normal Comments Pt supine Ankle/Foot Strength Ankle and Foot Manual Muscle Testing Left Dorsiflexion (L4) 5 Normal Inversion 5 Normal Eversion (S1) 5 Normal Comments Standing PF: pt can perform at least 20 reps with UE support against wall Right Dorsiflexion (L4) 5 Normal Inversion 5 Normal Eversion (S1) 5 Normal Comments Standing PF: pt can perform at least 20 reps with UE support against wall Toe Strength Toe Manual Muscle Testing Left Great Toe Extension 4 Good Right Great Toe Extension 3 Fair PT-OP-Q Treatments Start: 06/26/20 09:32 Freq: Status: Active Protocol: Document 09/22/20 09:05 MB (Rec: 09/22/20 09:35 MB [id number]) Therapeutic Exercises Sitting Exercises Hip abduction with ER Comments Level 1 band, level one band, glute squeeze Knee extension Comments Level 1 band, alterating x5 reps Standing Exercises Wall squat with band Comments Level 1 band, core tight, count 1,2,3,4,[address] and up Side stepping and backwards walking with band Comments Level 1 band Manual Therapy Treatment Other Other Manual Treatments STM B PFs at soleus and gastroc attachment distally and up the muscle bellies, STM left greater than right plantar fascia, gentle B feet digit mobs grade II PT-OP-T Assessment and Plan Start: 06/26/20 09:32 Freq: Status: Active Protocol: Document 09/22/20 09:05 MB (Rec: 09/22/20 09:35 MB [id number]) Physical Therapy Assessment Rehab Potential Rehabilitation Potential Fair Evaluation Complexity Number of Personal Factors/Comorbidities 1-2 Number of Body Systems Impaired 1-2 Clinical Presentation at Evaluation Evolving Impairments Impairments Activity Tolerance,Balance, Pain,Posture,ROM,Soft Tissue Mobility,Strength Goals 4 Processing Rep Goal (LTG) Pt will perform progressive HEP with I including flexibility, balance and strengthening exercises to decrease pain and improve functional strength by 2020. 07/31/2020: Pt is doing exercises as able d/t working on the house and she is done with this LTG Duration 8 weeks 3 Intermediate Goal (LTG) Pt will present WNLs on a standardized balance test to improve balance and walking by 10/02/2020. 07/31/2020: Socks, KT and no shoes: EO and EC Romberg WNLs, Tandem EO B feet at least 1'; Tandem EC right foot behind 11 sec; left foot 33 sec at least and pt reports left foot 3/10 LTG Duration 8 weeks 2 Processing Rep Goal (LTG) Pt will gait train at least 1500 feet in 6 minutes with reports of no more than 2/10 left foot pain to prepare pt to return to walking several miles a day by 10/02/2020. 07/31/2020: Pt has 4/10 left foot pain before gait. She is wearing her athletic shoes today and PT KT before gait. Pt can tolerate 2 min 40 sec gait and gait trains 692 feet. Her pain reduces to 2/10 at start and then she has the burning pain and gait stopped. LTG Duration 8 weeks 1 Intermediate Goal (LTG) Pt will be able to walk 1 mile with reports of no more than 2/10 left foot pain to allow return to prior active lifestyle by 10/01/2020. 07/31/2020: Pt has not yet walked a mile for exercise LTG Duration 8 weeks Assessment Summary Assessment Pt is feeling a lot better and is able to progress with strengthening today. She is ready to prepare for d/c next treatment date. Con' to encourage her to perform her yoga routine at home and follow-up with motorbike courier plan . Physical Therapy Plan Frequency and Duration Frequency of Treatment 2x/Week Duration of Treatment 8 weeks Plan of Care Start Date 07/31/20 Plan of Care End Date 10/02/20 Therapeutic Interventions Therapeutic Interventions Balance Training,Canalithic Repositioning,Coordination Training,Gait Training,Home Exercise Program,Joint Mobilizations,Manual Therapy, Neuromuscular Re-education, Patient/Caregiver Education, Self-Care/Home Management, Sensory Integration,Soft Tissue Mobilization,Taping, Therapeutic Activities, Therapeutic Exercises Modalities Cold Pack/Ice Massage,Electric Stimulation,Hot Packs, Ultrasound Other Referrals/Consults Referrals/Consults Recommended Functional medicine pharmacist to discuss inflammatory concerns Next Visit Focus/Plan Next Note Type Discharge Summary
--- NOTE | 2020-09-27 11:20 | PT.OTN ---
Current Diagnoses Pain in right foot (09/27/20) Pain in left foot (09/27/20) Physical Therapy Treatment Note PT-OP-A Visit Information Start: 06/26/20 09:32 Freq: Status: Active Protocol: Document 09/27/20 10:32 MB (Rec: 09/27/20 11:20 MB [id number]) Out-Patient Physical Therapy Visit Information Visit Information Visit Type Treatment Note Visit Start Time 10:32 Visit Stop Time 11:15 Total Visit Minutes 43 Visit Number 19 PT-OP-B Current Condition Start: 06/26/20 09:32 Freq: Status: Active Protocol: Document 06/26/20 10:32 MB (Rec: 06/26/20 10:53 MB [id number]) Current Condition History of Current Condition Onset Date March 2020 Current Complaints B foot pain, worse on the left with WB activity History of Current Condition At the end of March, pt was spending a lot of time remodeling a house and had increased B foot pain and greater on the left. She points to dorsal left foot at the cuboid area. Her right foot pain is better. Pt reports 3/10 right foot pain and 6/10 left foot pain. She is afraid to exercise d/t pain. 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 She is wearing arch support and that does relieve some of the pain. Pt states that she has a history of tendinits and calcifications form B shoulders and hips. She was dx with OA LB. She has had chronic inflammation and one MRI showed right trochanter bursa inflammation. Pt reports that she had a fall two weeks ago. She was overconfident using a hover board. She reached forward on her couch and the board moved out from behind her. She hit the back of her head. Her right shoulder flared up. She stretched, iced and rested and then was symptom-free. She has had a headache for the last couple of days. Pt reports that over the last few months, she has not been very hungry and she has been losing weight. It almost feels like symptoms but she knows she is not d/t IUD. She is nauseated. She has had increased stress. Pt works at [employer] and manages a lot with her job. She is working from home and is helping her two teenagers at home with school. The remodel of the house is still ongoing. Pt reports history of inflammatory response. Prior Treatments and Tests PT in the past for multi-joint pain, pt reports sensitivity to touch. X-ray left foot 05/12/2020: accessory ossicle lateral to proximal cuboid bone, small achilles tendon insertion spur at posterior calcaneus and scant spur at the plantar fascia Treatment Goals Patient/Caregiver Goals To get back to walking 3-4 miles a day. PT-OP-C Subjective Start: 06/26/20 09:32 Freq: Status: Active Protocol: Document 09/27/20 10:32 MB (Rec: 09/27/20 11:20 MB [id number]) OP-PT Subjective Patient Comments Patient Comments I'm doing fine. I met all my PT goals. Pt states that she is concerned that she still has something wrong with left foot as seen on diagnostics and will follow-up about MRI and orthotics with network and threat support specialist. PT-OP-G Mobility & Gait Start: 06/26/20 09:32 Freq: Status: Active Protocol: Document 06/26/20 10:32 MB (Rec: 06/26/20 13:00 MB [id number]) OP Gait Assessment Gait Gait Assistance Required: Independent Distance (Feet) 100 Assistive Devices Assistive Device None Gait Deviations General Gait Pattern Within Normal Limits Factors Limiting Gait Function Factors Limiting Gait Function Pain Comments Gait Comments Pt tends to put more weight through B first ray and great toe for stepping, as if reaching through her toes. This is greater on the right. She has decreased Astrid angle B PT-OP-J Posture/Palpation/Skin Start: 06/26/20 09:32 Freq: Status: Active Protocol: Document 06/26/20 10:32 MB (Rec: 06/26/20 13:00 MB [id number]) Posture Evaluation Comments Posture Comments Standing posture: forward head , rounded shoulders, Dowager's hump, increased lumbar lordosis and anterior tilt pelvis, right shoulder elevation and right scapula elevation and protraction, right iliac crest higher than the left and pt does have spinal curvature. 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 Skin Assessment Other Assessments Skin Assessment Comments Left ankle is mildly more edematous than the right in the dorsal part of the joint and foot, though she has sock loyola on both feet and ankles. PT-OP-K Range of Motion Start: 06/26/20 09:32 Freq: Status: Active Protocol: Document 06/26/20 10:32 MB (Rec: 06/26/20 13:00 MB [id number]) Ankle and Foot Goniometric Range of Motion Ankle and Foot ROM Limitations Comments B great toe extension reduced to only a few degrees off neutral. B DF close to neutral . Both great toe extension and DF slightly more limited on the right PT-OP-M Strength Start: 06/26/20 09:32 Freq: Status: Active Protocol: Document 06/26/20 10:32 MB (Rec: 06/26/20 13:00 MB [id number]) Hip Strength Hip Manual Muscle Testing Left Flexion (L2) 5 Normal Abduction 5 Normal Comments Pt supine Right Flexion (L2) 5 Normal Abduction 4 Good Comments Pt supine Knee Strength Knee Manual Muscle Testing Left Flexion (S2) 5 Normal Extension (L3) 5 Normal Comments Pt supine Right Flexion (S2) 5 Normal Extension (L3) 5 Normal Comments Pt supine Ankle/Foot Strength Ankle and Foot Manual Muscle Testing Left Dorsiflexion (L4) 5 Normal Inversion 5 Normal Eversion (S1) 5 Normal Comments Standing PF: pt can perform at least 20 reps with UE support against wall Right Dorsiflexion (L4) 5 Normal Inversion 5 Normal Eversion (S1) 5 Normal Comments Standing PF: pt can perform at least 20 reps with UE support against wall Toe Strength Toe Manual Muscle Testing Left Great Toe Extension 4 Good Right Great Toe Extension 3 Fair PT-OP-Q Treatments Start: 06/26/20 09:32 Freq: Status: Active Protocol: Document 09/27/20 10:32 MB (Rec: 09/27/20 11:20 MB [id number]) Therapeutic Exercises Other Exercises HEP Review Comments Reviewed all exercises as needed today, answered questions, peforms happy b Gait Training Gait Activity [id number] Comments See findings under goals today . Much improved gait and less pain. Also performed FGA today and pt's score is normal. She only has trouble with tandem gait and will start performing this at home Manual Therapy Treatment Other Other Manual Treatments STM B PFs and fibularis longus PT-OP-T Assessment and Plan Start: 06/26/20 09:32 Freq: Status: Active Protocol: Document 09/27/20 10:32 MB (Rec: 09/27/20 11:20 MB [id number]) Physical Therapy Assessment Goals 4 Auto Tech Goal (LTG) Pt will perform progressive HEP with I including flexibility, balance and strengthening exercises to decrease pain and improve functional strength by 2020. 09/27/20: Pt is performing progressive HEP exercises LTG Duration Met 3 Intermediate Goal (LTG) Pt will present WNLs on a standardized balance test to improve balance and walking by 10/02/2020. 09/27/20: FGA score is 29/20 with only trouble with Tandem walking LTG Duration Met 2 Auto Tech Goal (LTG) Pt will gait train at least 1500 feet in 6 minutes with reports of no more than 2/10 left foot pain to prepare pt to return to walking several miles a day by 10/02/2020. 09/27/20: Pt gait trains 1804 feet in 6 minutes with reports of no more than .5/10 pain. This is much improved. LTG Duration Met 1 Intermediate Goal (LTG) Pt will be able to walk 1 mile with reports of no more than 2/10 left foot pain to allow return to prior active lifestyle by 10/01/2020. 09/27/20: Pt is able to walk a mile with no more than 2/10 left foot pain LTG Duration Met Assessment Summary Assessment Pt has met all PT goals. These include balance, gait distance, exercise and walking for exercise goals. She has know anomaly left foot and will have MRI and orthotics by network and threat support specialist. She is ready to d /c PT. Will d/c PT.
== END 2020-09-28 10:23 ==
LOC: PHYS 10:30
PROVIDERS: Family Provider Family Medicine; PCP Family Medicine; Referring Provider Nurse Practitioner Family; Visit Provider Nurse Practitioner Family
DX: M79.672 Pain in left foot (principal); M79.671 Pain in right foot
CPT/HCPCS: 97110; 97112; 97116; 97140; 97161; 97535

== ENCOUNTER → 2020-10-16 08:01 | Outpatient (CLI) | payer OTHER, SELFPAY ==
--- NOTE | 2020-10-16 08:03 | DI.MG.S_ITS ---
BILATERAL DIGITAL SCREENING MAMMOGRAM 3D/2D WITH CAD: 10/16/2020 Comparison is made to exams dated: 12/27/2011 mammogram and 03/25/2011 mammogram - [facility]. The tissue of both breasts is heterogeneously dense. This may lower the sensitivity of mammography. Current study was also evaluated with a Computer Aided Detection (CAD) system. No significant masses, calcifications, or other findings are seen in either breast. There has been no significant interval change. IMPRESSION: NEGATIVE There is no mammographic evidence of malignancy. A 1 year screening mammogram is recommended. This exam was interpreted at Station ID: [id number]. NOTE: For mammograms, a report in lay terms will be sent to the patient. Approximately 15% of breast malignancies will not be visualized mammographically. In the management of a palpable breast mass, a negative mammogram must not discourage biopsy of a clinically suspicious lesion. Electronically Signed By: Shukri nguyen/luis:10/16/2020 09:18:30 letter sent: Normal Exam ACR BI-RADS Category 1: Negative [id number]
== END ==
PROVIDERS: Family Provider Family Medicine; PCP Family Medicine; Referring Provider Family Medicine; Visit Provider Family Medicine
DX: Z12.31 Encounter for screening mammogram for malignant neoplasm of breast (principal)
CPT/HCPCS: 77063; 77067

== ENCOUNTER → 2020-11-10 12:41 | Outpatient (CLI) | payer OTHER, SELFPAY ==
[2020-11-10] MEDS: COVID-19 VACC #1, MRNA(MOD) 100 MCG/0.5 ML VIAL IM (12:49)
== END ==
PROVIDERS: Family Provider Family Medicine; PCP Family Medicine; Visit Provider Internal Medicine
DX: Z23 Encounter for immunization (principal)
CPT/HCPCS: 0011A; 91301

== ENCOUNTER → 2020-12-08 12:49 | Outpatient (CLI) | payer OTHER, SELFPAY ==
[2020-12-08] MEDS: COVID-19 VACC #2, MRNA(MOD) 100 MCG/0.5 ML VIAL IM (13:02)
== END ==
PROVIDERS: Family Provider Family Medicine; PCP Family Medicine; Visit Provider Internal Medicine
DX: Z23 Encounter for immunization (principal)
CPT/HCPCS: 0012A; 91301

== ENCOUNTER → 2020-12-21 10:20 | Outpatient (CLI) | payer OTHER, SELFPAY ==
--- NOTE | 2020-12-21 10:22 | DI.RAD.S_ITS ---
PROCEDURE: XR THORACIC SPINE 3V INDICATIONS: thoracic back pain TECHNIQUE: 3 views of the thoracic spine were acquired. COMPARISON: None. FINDINGS: Bones: No fracture. Multilevel spondylosis/endplate changes. Diffuse facet arthropathy. Disc spaces appear preserved. Lower cervical spondylosis also noted. Mild lateral curvature of the spine. Soft tissues: No paravertebral stripe thickening. IMPRESSION: Diffuse discogenic changes as above. No fracture Dictated by: Luis Grace M.D. on 12/21/2020 at 11:46 Approved by: Luis Grace M.D. on 12/21/2020 at 11:48
== END ==
PROVIDERS: Family Provider Family Medicine; PCP Family Medicine; Referring Provider Family Medicine; Visit Provider Family Medicine
DX: M47.812 Spondylosis without myelopathy or radiculopathy, cervical region (principal)
CPT/HCPCS: 72072

== ENCOUNTER → 2023-10-03 08:47 | Outpatient (CLI) | payer OTHER, SELFPAY ==
[2023-10-03 09:51] LABS: Add Manual Diff / Slide Review NO; Basophils Absolute Auto 0 /uL (0-100); Basophils Percent Auto 0.6 % (0-2); Eosinophils Absolute Auto 100 /uL (0-450); Eosinophils Percent Auto 1.9 % (2-4); Hematocrit 39.9 % (36-46); Hemoglobin 13.8 g/dL (12.0-16.0); Lymphocytes Absolute Auto 1500 /uL (1100-4500); Lymphocytes Percent Auto 21.1 % (25-40); Mean Corpuscular HGB Conc 34.5 % (30-36); Mean Corpuscular Hemoglobin 29.8 PG (26-34); Mean Corpuscular Volume 86.4 fL (80-100); Monocytes Absolute Auto 600 /uL (0-900); Monocytes Percent Auto 7.6 % (3-14); Neutrophils Absolute Auto 5000 /uL (1500-7000); Neutrophils Percent Auto 68.8 % (50-75); Platelet Count 305 X10^3/uL (150-400); Red Blood Cell Count 4.62 X10^6/uL (4.0-5.2); Red Cell Distribution Width 12.7 % (11.6-14.8); White Blood Cell Count 7.3 X10^3/uL (4.5-11.0)
[2023-10-03 10:07] LABS: Alanine Aminotransferase 28 IU/L (<35); Albumin 4.3 g/dL (3.5-5.0); Albumin Globulin Ratio 1.1 (1.0-2.8); Alkaline Phosphatase 84 U/L (38-126); Aspartate Aminotransferase 28 IU/L (14-36); BUN Creatinine Ratio 23.5 (6-22); Bilirubin Total 0.4 mg/dL (0.2-1.3); Blood Urea Nitrogen 19 mg/dL (7-17); Calcium 9.2 mg/dL (8.4-10.2); Carbon Dioxide 27 mmol/L (22-32); Chloride 106 mmol/L (98-107); Cholesterol 172 mg/dL (140-199); Estimated Glomerular Filt Rate > 60 mL/min (>60); Globulin 3.8 g/dL (1.7-4.1); Glucose 98 mg/dL (70-100); HDL Cholesterol 42 mg/dL (40-60); HEMOLYSIS < 15 (0-50); LDL Cholesterol Calculated 96 mg/dL (<100); Potassium 4.5 mmol/L (3.4-5.1); Sodium 141 mmol/L (137-145); Total Protein 8.1 g/dL (6.3-8.2); Triglycerides 168 mg/dL (35-150)
[2023-10-03 10:38] LABS: TSH w/ Reflex to FT4 1.58 uIU/mL (0.47-4.68)
[2023-10-05 09:40] LABS: x Labcorp Estim. Avg Glu (eAG) 111 mg/dL (.); x Labcorp Hemoglobin A1c 5.5 % (4.8-5.6)
== END ==
PROVIDERS: Family Provider Family Medicine; PCP Student in an Organized Health Care Education/Training Program; Referring Provider Student in an Organized Health Care Education/Training Program; Visit Provider Student in an Organized Health Care Education/Training Program
DX: Z68.33 Body mass index [BMI] 33.0-33.9, adult (principal); R03.0 Elevated blood-pressure reading, without diagnosis of hypertension
CPT/HCPCS: 36415; 80053; 80061; 83036; 84443; 85025

== ENCOUNTER → 2023-12-11 16:59 | Outpatient (CLI) | payer OTHER, SELFPAY ==
--- NOTE | 2023-12-11 | DI.MRI.S_ITS ---
PROCEDURE: MR ANKLE LT WO CON INDICATIONS: Localized swelling, mass and lump, left lower limb TECHNIQUE: Noncontrast sagittal T1 spin echo and T2 fast spin echo with fat saturation, axial proton density fast spin echo and T2 fast spin echo with fat saturation, coronal T1 spin echo and T2 fast spin echo with fat saturation through the ankle/hindfoot. COMPARISON: [facility], CR, XR FOOT 3 VIEWS WEIGHT BEARING LEFT, 11/21/2023, 13:44. FINDINGS: Image quality: Excellent A pain marker is placed in the lateral midfoot, adjacent to the 5th tarsometatarsal articulation. There is a 6 mm T2 hyperintense lesion in the superficial soft tissue, likely representing a ganglion cyst (series 5, image 30). Tendons: The flexor tendons are unremarkable. The peroneal tendons, and the extensor tendons are unremarkable. Mild tendinosis of the distal Achilles tendon, without tear. Ligaments: The anterior and the posterior tibial fibular ligament are intact. The anterior and posterior talofibular ligaments are intact. The calcaneofibular ligament is intact. Prior sprain of the deep portion of the deltoid ligament. Sinus tarsi: No fibrosis. Plantar fascia: Unremarkable Muscles: Normal signal Bones: No marrow edema. No acute fracture. Small tibiotalar effusion. IMPRESSION: Corresponding to the pain marker, there is a 6 mm T2 hyperintense lesion in the superficial soft tissues of the lateral midfoot, favoring to represent a ganglion cyst. Somewhat limited evaluation given noncontrast study. Dictated by: Jo-Ann Grover M.D. on 12/12/2023 at 10:26 Approved by: Jo-Ann Grover M.D. on 12/12/2023 at 10:36
== END ==
LOC: MRI 17:00
PROVIDERS: Family Provider Family Medicine; PCP Student in an Organized Health Care Education/Training Program; Referring Provider Orthopaedic Surgery Foot and Ankle Surgery; Visit Provider Orthopaedic Surgery Foot and Ankle Surgery
DX: R22.42 Localized swelling, mass and lump, left lower limb (principal)
CPT/HCPCS: 73721

== ENCOUNTER → 2024-03-16 14:58 | Outpatient (CLI) | payer OTHER, SELFPAY ==
--- NOTE | 2024-03-16 15:40 | EKG_ITS ---
[facility] [address] [place] [address] Test Date: 2024-03-16 Pat Name: Tiff Ruiz Department: Room: Gender: Female Sustainability Communicator: : 1975 Requested By: Order Number: [id number] Reading MD: Brayden Lucas Measurements Intervals [place] Rate: 104 P: 60 TN: 140 QRS: 39 QRSD: 74 T: 16 QT: 338 QTc: 444 Interpretive Statements Sinus tachycardia Electronically Signed On 03-18-2024 7:34:23 PDT by Brayden Lucas
== END ==
PROVIDERS: Family Provider Family Medicine; PCP Student in an Organized Health Care Education/Training Program; Referring Provider Family Medicine; Visit Provider Family Medicine
DX: Z79.899 Other long term (current) drug therapy (principal)
CPT/HCPCS: 93005

== ENCOUNTER → 2024-12-21 14:33 | Outpatient (CLI) | payer OTHER, SELFPAY ==
--- NOTE | 2024-12-21 14:56 | EKG_ITS ---
[address] [address] Test Date: 2024-12-21 Pat Name: Tiff Ruiz Department: DEFAULT Room: Gender: Female Merchandising Assistant: NICOLE : 1975 Requested By: Order Number: [id number] Reading MD: Adilson Childers Measurements Intervals [place] Rate: 99 P: 59 SD: 138 QRS: 40 QRSD: 76 T: 41 QT: 344 QTc: 441 Interpretive Statements Normal sinus rhythm Electronically Signed On 12-22-2024 17:39:49 PDT by Adilson Childers
--- NOTE | 2024-12-21 15:13 | DI.MG.S_ITS ---
MM screening mammo BI: 12/21/2024. BI-RADS: 1 CLINICAL: 49-year old female for bilateral screening mammogram. Tyrer-Cuzick lifetime risk of 10.1%. No personal or first-degree family history of breast cancer. PRIOR EXAMS 10/16/2020. MAMMOGRAPHY TECHNIQUE: 2D and 3D (tomosynthesis) digital mammographic views obtained, with additional images as needed for full coverage. Current study was also evaluated with a Computer Aided Detection (CAD) system. DENSITY C. The breasts are heterogeneously dense, which may obscure small masses. MAMMOGRAPHY FINDINGS Bilateral: No suspicious mass, asymmetry, microcalcification, or other abnormality seen. No significant change from comparison. IMPRESSION: * No evidence of malignancy. RECOMMENDATIONS Bilateral * Annual screening mammography. OVERALL ASSESSMENT CATEGORY BI-RADS-1: Negative. The [employer] recommends annual screening mammography beginning at age 40 for women with average risk of breast cancer. ELECTRONICALLY SIGNED: Hood Blake M.D. on 12/22/2024 at 10:11:52 AM PT Interpreting Station ID: [id number]
--- NOTE | 2024-12-21 15:13 | DI.US.S_ITS ---
PROCEDURE: US EXTREMELY NONVASC UPPER RT INDICATIONS: PAINFUL LUMP TECHNIQUE: Real-time scanning was performed of the right upper extremity, with image documentation. COMPARISON: None. FINDINGS: At the areas of concern, there are no discrete masses or fluid collections. The palpable areas of concern correspond to lobules of subcutaneous fat, measuring 3.1 x 1.9 x 1.0 cm at the right upper-anterior arm and 1.9 x 1.4 x 0.9 cm at the right anterior-lateral arm. IMPRESSION: No clear sonographic correlate for the patient's palpable lumps. Alternatively, these findings may represent unencapsulated low-grade lipomatous tumors such as lipomas. If there is persistent concern for underlying neoplasm, then follow-up options would include percutaneous sampling of these regions versus an MRI of the shoulder with and without contrast. Dictated by: Bo Vallejo M.D. on 12/22/2024 at 10:17 Approved by: Bo Vallejo M.D. on 12/22/2024 at 10:22
== END ==
PROVIDERS: Family Provider Family Medicine; PCP Family Medicine; Referring Provider Family Medicine; Visit Provider Family Medicine
DX: Z12.31 Encounter for screening mammogram for malignant neoplasm of breast (principal); R92.333 Mammographic heterogeneous density, bilateral breasts; R22.31 Localized swelling, mass and lump, right upper limb; R00.0 Tachycardia, unspecified; I10 Essential (primary) hypertension
CPT/HCPCS: 76882; 77063; 77067; 93005

== ENCOUNTER → 2024-12-22 17:32 | Outpatient (CLI) | payer OTHER, SELFPAY ==
[2024-12-22 18:03] LABS: Add Manual Diff / Slide Review NO; Basophils Absolute Auto 0 /uL (0-100); Basophils Percent Auto 0.5 % (0-2); Eosinophils Absolute Auto 100 /uL (0-450); Eosinophils Percent Auto 1.2 % (2-4); Hematocrit 41.2 % (36-46); Hemoglobin 14.1 g/dL (12.0-16.0); Lymphocytes Absolute Auto 1400 /uL (1100-4500); Lymphocytes Percent Auto 21.6 % (25-40); Mean Corpuscular HGB Conc 34.2 % (30-36); Mean Corpuscular Hemoglobin 30.1 PG (26-34); Mean Corpuscular Volume 87.9 fL (80-100); Monocytes Absolute Auto 500 /uL (0-900); Monocytes Percent Auto 8.5 % (3-14); Neutrophils Absolute Auto 4300 /uL (1500-7000); Neutrophils Percent Auto 68.2 % (50-75); Platelet Count 335 X10^3/uL (150-400); Red Blood Cell Count 4.69 X10^6/uL (4.0-5.2); White Blood Cell Count 6.4 X10^3/uL (4.5-11.0)
[2024-12-22 18:30] LABS: Alanine Aminotransferase 19 IU/L (<35); Albumin 4.7 g/dL (3.5-5.0); Albumin Globulin Ratio 1.6 (1.0-2.8); Alkaline Phosphatase 73 U/L (38-126); Aspartate Aminotransferase 30 IU/L (14-36); Bilirubin Total 0.4 mg/dL (0.2-1.3); Blood Urea Nitrogen 17 mg/dL (7-17); Calcium 9.5 mg/dL (8.4-10.2); Carbon Dioxide 31 mmol/L (22-32); Chloride 102 mmol/L (98-107); Estimated Glomerular Filt Rate > 60 mL/min (>60); Glucose 102 mg/dL (70-99); HEMOLYSIS < 15 (0-50); Iron 55 ug/dL (37-170); Potassium 3.9 mmol/L (3.4-5.1); Sodium 141 mmol/L (137-145); Total Protein 7.7 g/dL (6.3-8.2)
[2024-12-22 18:37] LABS: Vitamin D 25 Hydroxy (D3) 51.1 ng/mL (30.0-100.0)
[2024-12-22 18:41] LABS: Percent Iron Saturation 21 % (15-50); Total Iron Binding Capacity 260 ug/dL (265-497); Transferrin 209 mg/dL (206-381)
[2024-12-22 18:48] LABS: Free T4, Direct Thyroxine 1.29 ng/dL (0.78-2.19)
[2024-12-22 19:02] LABS: Thyroid Stimulating Hormone 0.196 uIU/mL (0.47-4.68)
== END ==
PROVIDERS: Family Provider Family Medicine; PCP Family Medicine; Referring Provider Family Medicine; Visit Provider Family Medicine
DX: I10 Essential (primary) hypertension (principal); R00.0 Tachycardia, unspecified
CPT/HCPCS: 36415; 80053; 82306; 83540; 83550; 84439; 84443; 85025

== ENCOUNTER → 2025-06-20 17:23 | Outpatient (CLI) | payer OTHER, SELFPAY ==
[2025-06-20 18:56] LABS: Cholesterol 150 mg/dL (140-199); HDL Cholesterol 64 mg/dL (40-60); Triglycerides 136 mg/dL (35-150)
[2025-06-20 19:52] LABS: Microalbumi Creatinin Ratio Ur 12.0 ug/mg CR (<30)
== END ==
PROVIDERS: PCP Family Medicine; Referring Provider Family Medicine; Visit Provider Family Medicine
DX: Z13.220 Encounter for screening for lipoid disorders (principal); I10 Essential (primary) hypertension
CPT/HCPCS: 36415; 80061; 82043; 82570